=== PATIENT | female | born 1950 | race Two or more races ===

== ENCOUNTER 2016-10-31 04:18 | Emergency (ER) | payer MEDICARE, BC ==
[~2016-10-31] VITALS: Ht 152.4 cm; Wt 86.6 kg
[2016-10-31 04:25] VITALS: BP 158/87
== END 2016-10-31 06:40 | disposition home or self-care (01) ==
LOC: ER 04:21
DX: S90.122A Contusion of left lesser toe(s) without damage to nail, initial encounter (principal); W22.8XXA Striking against or struck by other objects, initial encounter; Y93.89 Activity, other specified; Y92.89 Other specified places as the place of occurrence of the external cause; Y99.9 Unspecified external cause status
CPT/HCPCS: 73620; 99284; A4606; Z7610

== ENCOUNTER 2016-11-09 06:45 | Inpatient (IN) | payer MEDICARE, BC ==
[~2016-11-09] VITALS: Ht 134.6 cm; Wt 91.6 kg
[2016-11-09] VITALS: BP 151/75
--- NOTE | 2016-11-09 06:50 | NUR ---
AGUSTIN FROM HOME DT EPIGASTRIC PAIN, 8/10, NON RADIATING X 2 DAYS. PATIENT REPORTED NAUSEA AND VOMITTIING X 3 DAYS. SKIN IS WARM TO TOUCH AND NON DIAPHORETIC. PT IS AFEBRILE. VSS
[2016-11-09] MEDS ORDERED: ONDANSETRON HCL/PF 4 MG/2 ML VIAL ONE (06:59)
[2016-11-09] MEDS ORDERED: ONDANSETRON HCL/PF 4 MG/2 ML VIAL IVP ONE (07:00)
[2016-11-09] MEDS ORDERED: IV NS 0.9% 1,000 ML BAG IV ONE (07:00)
--- NOTE | 2016-11-09 07:00 | NUR ---
IV ACCESSED TO [facility] 20. BLOOD SAMPLE SENT TO LAB
--- NOTE | 2016-11-09 07:07 | NUR ---
REPORT GIVEN TO AGUILAR RAYGOZA FOR JOSE GUADALUPE
--- NOTE | 2016-11-09 07:23 | NUR ---
PT TO CT.
[2016-11-09 07:39] LABS: BASOPHILS # (AUTO) 0.1 /CMM (0.0-0.2); BASOPHILS % (AUTO) 0.8 % (0.0-2.0); EOSINOPHILS # (AUTO) 0.2 /CMM (0.0-0.7); EOSINOPHILS % (AUTO) 2.3 % (0.0-6.0); HEMATOCRIT 29 % (33-45); HEMOGLOBIN 9.3 g/dL (11.5-14.8); LYMPHOCYTES # (AUTO) 2.2 /CMM (0.8-4.8); LYMPHOCYTES % (AUTO) 31.7 % (20.0-44.0); MEAN CORPUSCULAR HEMOGLOBIN 29 PG (26.0-33.0); MEAN CORPUSCULAR HGB CONC 32 g/dl (31.0-36.0); MEAN CORPUSCULAR VOLUME 90 fL (82-100); MONOCYTES # (AUTO) 0.4 /CMM (0.1-1.30); MONOCYTES % (AUTO) 5.4 % (2.0-12.0); NEUTROPHILS # (AUTO) 4.1 /CMM (1.8-8.9); NEUTROPHILS % (AUTO) 59.8 % (43.0-81.0); PLATELET COUNT (AUTO) 205 /CMM (150-450); RDW COEFFICIENT OF VARIATION 18.6 (11.5-15.0); RED BLOOD CELL COUNT(AUTO) 3.23 MIL/uL (4.0-5.2); WHITE BLOOD COUNT (AUTO) 6.8 K/uL (4.3-11.0)
--- NOTE | 2016-11-09 07:40 | NUR ---
PATIENT RETURNED FROM CT IN STABLE CONDITION.
[2016-11-09 07:57] LABS: INR 1.04 (0.87-1.13); PROTHROMBIN TIME 11.2 SECS (9.5-12.7)
[2016-11-09 07:59] LABS: CALCIUM, SERUM 8.8 mg/dL (8.5-10.1); CARBON DIOXIDE 27 mmol/L (21-32); CHLORIDE 107 mmol/L (98-107); CREATININE 1.4 mg/dL (0.6-1.3); GLUCOSE 172 mg/dL (74-106); POTASSIUM 4.1 mmol/L (3.5-5.1); SODIUM SERUM 144 mmol/L (136-145); UREA NITROGEN, BLOOD 35 mg/dL (7-18)
[2016-11-09 08:05] LABS: ALANINE AMINOTRANSFERASE 30 U/L (12-78); ALBUMIN 3.3 g/dL (3.4-5.0); ALKALINE PHOSPHATASE 45 U/L (46-116); ASPARTATE AMINOTRANSFERASE 35 U/L (15-37); BILIRUBIN,DIRECT 0.1 mg/dL (0.0-0.2); BILIRUBIN,TOTAL 0.3 mg/dL (0.2-1.0); TOTAL PROTEIN, SERUM 7.7 g/dL (6.4-8.2); TROPONIN I < 0.017 ng/mL (0.00-0.056)
[2016-11-09 08:06] LABS: PARTIAL THROMBOPLASTIN TIME < 20 SEC (23-34)
[2016-11-09] MEDS ORDERED: IV NS 0.9% 100 ML IV ONE (09:00)
[2016-11-09] MEDS ORDERED: IV NS 0.9% 1,000 ML IV ONE (09:00)
[2016-11-09] MEDS ORDERED: PIPERACILLIN /TAZOBACTAM 3.375 G in IV D5W 50 ML IV ONE (09:00)
[2016-11-09] MEDS ORDERED: IV NS 0.9% 500 ML IV ONE (09:00)
[2016-11-09] MEDS ORDERED: OMEG500C PO (09:01)
[2016-11-09] MEDS ORDERED: ASPI81TA2 PO (09:01)
[2016-11-09] MEDS ORDERED: CLON0.5T4 PO (09:01)
[2016-11-09] MEDS ORDERED: FERR-58 PO (09:01)
[2016-11-09] MEDS ORDERED: DIVA500T7 PO (09:01)
[2016-11-09] MEDS ORDERED: AMLO10TA2 PO (09:01)
[2016-11-09] MEDS ORDERED: METO50TA3 PO (09:01)
[2016-11-09] MEDS ORDERED: IBUP-1482 PO (09:01)
[2016-11-09] MEDS ORDERED: FENO145T PO (09:01)
[2016-11-09] MEDS ORDERED: METF850T2 PO (09:01)
[2016-11-09] MEDS ORDERED: DOCU-170 PO (09:01)
[2016-11-09] MEDS ORDERED: ASCO-340 PO (09:01)
[2016-11-09] MEDS ORDERED: INSU3INS6 SQ (09:01)
[2016-11-09] MEDS ORDERED: FURO40TA5 PO (09:01)
[2016-11-09] MEDS ORDERED: INSU100I4 SQ (09:01)
[2016-11-09] MEDS ORDERED: BENZ1TAB7 PO (09:01)
[2016-11-09] MEDS ORDERED: OLAN5TAB3 PO (09:01)
[2016-11-09] MEDS ORDERED: OMEP20CA10 PO (09:01)
[2016-11-09] MEDS ORDERED: ACET-868 PO (09:01)
[2016-11-09] MEDS ORDERED: ATOR40TA PO (09:01)
--- NOTE | 2016-11-09 10:27 | NUR ---
REPORT GIVEN TO RNSUHA FOR ADMISSION
[2016-11-09 11:03] LABS: APPEARANCE,URINE Clear (CLEAR); BILIRUBIN,URINE Negative (NEGATIVE); BLOOD, URINE Negative Ery/uL (NEGATIVE); COLOR,URINE Yellow (YELLOW); KETONES,URINE Negative (NEGATIVE); LEUKOCYTE ESTERASE ,URINE Negative (NEGATIVE); NITRITE, URINE Negative (NEGATIVE); PROTEIN,URINE 100 mg/dl (NEGATIVE); UGLUCOSE Negative (NEGATIVE); UROBILINOGEN,URINE 0.2 EU/dL (0.2)
--- NOTE | 2016-11-09 11:10 | NUR ---
PATIENT TRANSFERRED TO [facility] FOR ADMISSION VIA ACLS PROTOCOL. RN, SUHA TO PROVIDE JOSE GUADALUPE .
[2016-11-09 11:15] VITALS: BP 154/74
[2016-11-09 11:29] LABS: BACTERIA,URINE Rare /HPF (None Seen); RBC,URINE NONE SEEN /HPF (0-2); SQUAMOUS EPITHELIAL CELL,UR Few /HPF (None Seen); WBC,URINE NONE SEEN /HPF (0-3)
[2016-11-09] MEDS ORDERED: DEXTROSE 50%-WATER 50 ML DISP.SYRIN IV PRN (17:00)
[2016-11-09] MEDS ORDERED: IBUPROFEN 800 MG TABLET PO PRN (17:00)
[2016-11-09] MEDS: DOCUSATE SODIUM 100 MG CAPSULE PO SCH (17:12)
[2016-11-09] MEDS: clonazePAM 0.5 MG TABLET PO SCH (17:12)
[2016-11-09] MEDS: FERROUS SULFATE (325 MG) 325 MG/TAB TABLET PO SCH (17:12)
[2016-11-09] MEDS: MORPHINE SULFATE INJ 2 MG/ML DISP.SYRIN IV PRN (17:13)
[2016-11-09] MEDS ORDERED: IBUPROFEN 400 MG TABLET PO PRN (17:30)
[2016-11-09] MEDS: BLOOD SUGAR DIAGNOSTIC 1 EACH STRIP VI SCH ×2 (17:39→21:31)
[2016-11-09] MEDS: INSULIN REGULAR, HUMAN 100 UNIT/ML 3 ML VIAL SQ PRN (17:51)
[2016-11-09 20:16] VITALS: BP 144/76
--- NOTE | 2016-11-09 20:18 | NUR ---
CORRESPONDENCE COORDINATOR INITIAL NOTES PT IS IN BED SLEEPING, EASILY AROUSED. NO SIGNS OF SOB OR DISTRESS. ON RA BREATHING EVENLY AND UNLABORED. TELE MONITOR SHOWING ST-112. STOOL SAMPLE PENDING COLLECTION. BED IS IN LOW AND LOCKED POSITION, CALL LIGHT WITHIN REACH. WILL CONTINUE TO MONITOR PT.
[2016-11-09] MEDS: *INSULIN REGULAR(HUMULIN R)HUM 100 UNIT/ML VIAL SQ PRN (21:35)
[2016-11-09] MEDS: ATORVASTATIN 40 MG TABLET PO SCH (21:36)
[2016-11-09] MEDS: DIVALPROEX SODIUM 500 MG TABLET.DR PO SCH (21:36)
[2016-11-09] MEDS: BENZTROPINE MESYLATE (1 MG) 1 MG TABLET PO SCH (21:36)
[2016-11-09] MEDS: OLANZAPINE 5 MG TABLET PO SCH (21:36)
[2016-11-10 00:15] VITALS: BP 157/77
[2016-11-10] MEDS ORDERED: METRONIDAZOLE 500 MG TABLET ONE ×2 (00:25→05:13)
[2016-11-10] MEDS: METRONIDAZOLE 500 MG TABLET PO SCH ×5 (00:29→23:08)
[2016-11-10 04:36] VITALS: BP 151/75
[2016-11-10] MEDS: BLOOD SUGAR DIAGNOSTIC 1 EACH STRIP VI SCH ×4 (05:29→21:01)
--- NOTE | 2016-11-10 06:50 | NUR ---
MS RN INITIAL NOTES PT IS IN BED SLEEPING, EASILY AROUSED. NO SIGNS OF SOB OR DISTRESS. IV ACCESS IS INTACT AND PATENT. ALL NEEDS WERE ANTICIPATED AND MET. PENDING STOOL SAMPLE COLLECTION. WILL ENDORSE TO DAY SHIFT
--- NOTE | 2016-11-10 07:10 | NUR ---
MS RN notes Received patient in bed, A/O x3. On room air, tolerating well. No SOB. Appears comfortable in bed, no c/o pain at this time. Bed lowest position. Call light within reach. Will cont to monitor.
[2016-11-10 07:13] VITALS: BP 144/77
[2016-11-10 08:00] VITALS: BP 144/77
[2016-11-10] MEDS: ASPIRIN 81 MG TAB.CHEW PO SCH (08:54)
[2016-11-10] MEDS: DOCUSATE SODIUM 100 MG CAPSULE PO SCH ×2 (08:54→17:17)
[2016-11-10] MEDS: DIVALPROEX SODIUM 500 MG TABLET.DR PO SCH ×2 (08:54→21:03)
[2016-11-10] MEDS: FENOFIBRATE NANOCRYS (145 MG) 145 MG TABLET PO SCH (08:54)
[2016-11-10] MEDS: BENZTROPINE MESYLATE (1 MG) 1 MG TABLET PO SCH ×2 (08:54→21:03)
[2016-11-10] MEDS: FERROUS SULFATE (325 MG) 325 MG/TAB TABLET PO SCH ×3 (08:54→17:17)
[2016-11-10] MEDS: clonazePAM 0.5 MG TABLET PO SCH ×3 (08:55→17:17)
[2016-11-10] MEDS: ASCORBIC ACID 500 MG TABLET PO SCH ×2 (08:55→17:17)
[2016-11-10] MEDS: FUROSEMIDE 40 MG TABLET PO SCH (08:55)
[2016-11-10] MEDS: AMLODIPINE BESYLATE 10 MG TABLET PO SCH (08:59)
[2016-11-10] MEDS: METOPROLOL TARTRATE 50 MG TABLET PO SCH (09:03)
[2016-11-10] MEDS: HEPARIN SODIUM, PORCINE 5000 UNITS/1 ML VIAL SQ SCH ×2 (09:08→21:02)
[2016-11-10] MEDS: *INSULIN REGULAR(HUMULIN R)HUM 100 UNIT/ML VIAL SQ PRN ×2 (12:01→21:12)
[2016-11-10] MEDS ORDERED: METR500T PO (12:55)
[2016-11-10] MEDS ORDERED: ALBUTEROL FS 2.5 MG/0.5 ML VIAL.NEB NEB PRN (14:00)
[2016-11-10] MEDS ORDERED: IPRATROPIUM NEB FS 0.5 MG/2.5 ML AMPUL.NEB NEB PRN (14:00)
--- NOTE | 2016-11-10 14:00 | NUR ---
Patient in bed, seen by PT today participated well. Per PT patient walk with assist 20 feet. Patient appears weak after PT, On Oxygen at 2LPM via NC, sating 94%. Patient is seen by DOUGH CATCHER-Walter today, ordered Xray chest, echo and BNP noted and acknowledged.
[2016-11-10 14:52] LABS: BASOPHILS # (AUTO) 0.1 /CMM (0.0-0.2); BASOPHILS % (AUTO) 0.8 % (0.0-2.0); EOSINOPHILS # (AUTO) 0.1 /CMM (0.0-0.7); EOSINOPHILS % (AUTO) 2.1 % (0.0-6.0); HEMATOCRIT 28 % (33-45); HEMOGLOBIN 9.1 g/dL (11.5-14.8); LYMPHOCYTES # (AUTO) 1.9 /CMM (0.8-4.8); LYMPHOCYTES % (AUTO) 26.9 % (20.0-44.0); MEAN CORPUSCULAR HEMOGLOBIN 29 PG (26.0-33.0); MEAN CORPUSCULAR HGB CONC 32 g/dl (31.0-36.0); MEAN CORPUSCULAR VOLUME 90 fL (82-100); MONOCYTES # (AUTO) 0.3 /CMM (0.1-1.30); MONOCYTES % (AUTO) 4.4 % (2.0-12.0); NEUTROPHILS # (AUTO) 4.7 /CMM (1.8-8.9); NEUTROPHILS % (AUTO) 65.8 % (43.0-81.0); PLATELET COUNT (AUTO) 241 /CMM (150-450); RDW COEFFICIENT OF VARIATION 18.2 (11.5-15.0); RED BLOOD CELL COUNT(AUTO) 3.14 MIL/uL (4.0-5.2); WHITE BLOOD COUNT (AUTO) 7.1 K/uL (4.3-11.0)
[2016-11-10 15:10] LABS: CALCIUM, SERUM 8.7 mg/dL (8.5-10.1); CREATININE 1.4 mg/dL (0.6-1.3); POTASSIUM 4.1 mmol/L (3.5-5.1)
[2016-11-10 16:00] VITALS: BP 137/83
[2016-11-10] MEDS: INSULIN REGULAR, HUMAN 100 UNIT/ML 3 ML VIAL SQ PRN (17:42)
--- NOTE | 2016-11-10 18:29 | NUR ---
MS RN Closing notes Patient in bed, A/O x3. No s/s of hypo/hyperglycemia. On oxygen at 2LPM via NC, no SOB. ON clear liquid diet, tolerated well. No c/o nausea, no episode of vomiting. On antibiotic with no adverse side effect, afebrile. No c/o pain or any discomfort. Call light within reach. For stool cdiff, will endorse to feather washer RN for continuity of care.
--- NOTE | 2016-11-10 19:45 | NUR ---
MS RN INITIAL NOTES PT IS IN WATCHING TV, ALERT AND VERBA. NO SIGNS OF SOB OR DISTRESS. ON RA BREATHING EVENLY AND UNLABORED. STOOL SAMPLE PENDING COLLECTION. BED IS IN LOW AND LOCKED POSITION, CALL LIGHT WITHIN REACH. WILL CONTINUE TO MONITOR PT.
[2016-11-10 20:00] VITALS: BP 155/77
--- NOTE | 2016-11-10 20:20 | NUR ---
TEMP IS 100.1- COOLING MEASURES WERE INITIATED. WILL CONTINUE TO MONITOR PT
[2016-11-10] MEDS: OLANZAPINE 5 MG TABLET PO SCH (21:01)
[2016-11-10] MEDS: ATORVASTATIN 40 MG TABLET PO SCH (21:03)
--- NOTE | 2016-11-10 23:11 | NUR ---
TEMP IS NOW 98.8- WILL CONTINUE TO MONITOR
[2016-11-11] MEDS: METRONIDAZOLE 500 MG TABLET PO SCH ×3 (05:41→17:17)
--- NOTE | 2016-11-11 05:42 | NUR ---
PT REFUSED FLAGYL, COMPLAINTS OF MAKING HER LEGS FEEL MORE RESTLESS
[2016-11-11] MEDS: BLOOD SUGAR DIAGNOSTIC 1 EACH STRIP VI SCH ×4 (06:00→21:44)
--- NOTE | 2016-11-11 06:23 | NUR ---
MS RN CLOSING NOTES PT IS IN BED SLEEPING, EASILY AROUSED. NO SIGNS OF SOB OR DISTRESS. NO SIGNS OF FEVER, TEMP WAS MONITORED THROUGHOUT THE NIGHT. IV ACCESS IS INTACT AND PATENT. ALL NEEDS WERE ANTICIPATED AND MET. PENDING STOOL SAMPLE COLLECTION. WILL ENDORSE TO DAY SHIFT
[2016-11-11 07:34] LABS: BASOPHILS % (AUTO) 0.6 % (0.0-2.0); EOSINOPHILS # (AUTO) 0.1 /CMM (0.0-0.7); EOSINOPHILS % (AUTO) 1.9 % (0.0-6.0); HEMATOCRIT 25 % (33-45); HEMOGLOBIN 8.2 g/dL (11.5-14.8); LYMPHOCYTES % (AUTO) 34.1 % (20.0-44.0); MEAN CORPUSCULAR HEMOGLOBIN 30 PG (26.0-33.0); MEAN CORPUSCULAR HGB CONC 33 g/dl (31.0-36.0); MEAN CORPUSCULAR VOLUME 89 fL (82-100); MONOCYTES # (AUTO) 0.3 /CMM (0.1-1.30); MONOCYTES % (AUTO) 4.5 % (2.0-12.0); NEUTROPHILS # (AUTO) 3.5 /CMM (1.8-8.9); NEUTROPHILS % (AUTO) 58.9 % (43.0-81.0); PLATELET COUNT (AUTO) 179 /CMM (150-450); RDW COEFFICIENT OF VARIATION 17.5 (11.5-15.0); RED BLOOD CELL COUNT(AUTO) 2.76 MIL/uL (4.0-5.2)
[2016-11-11 07:51] LABS: CALCIUM, SERUM 8.7 mg/dL (8.5-10.1); CREATININE 1.3 mg/dL (0.6-1.3); MAGNESIUM 1.5 mg/dL (1.8-2.4); POTASSIUM 3.7 mmol/L (3.5-5.1)
[2016-11-11 08:00] VITALS: BP 138/69
--- NOTE | 2016-11-11 08:00 | NUR ---
AM RN NOTES RECEIVED PT IN STABLE CONDITION, NO SOB OR DISTRESS NOTED PT ASSISTED TO BEDSIDE CHAIR, CONSUMING HER BREAKFAST, WILL MONITOR.
[2016-11-11] MEDS: DIVALPROEX SODIUM 500 MG TABLET.DR PO SCH ×2 (08:18→21:45)
[2016-11-11] MEDS: AMLODIPINE BESYLATE 10 MG TABLET PO SCH (08:19)
[2016-11-11] MEDS: DOCUSATE SODIUM 100 MG CAPSULE PO SCH ×2 (08:19→16:19)
[2016-11-11] MEDS: clonazePAM 0.5 MG TABLET PO SCH ×3 (08:19→16:19)
[2016-11-11] MEDS: FERROUS SULFATE (325 MG) 325 MG/TAB TABLET PO SCH ×3 (08:19→16:20)
[2016-11-11] MEDS: FUROSEMIDE 40 MG TABLET PO SCH (08:19)
[2016-11-11] MEDS: FENOFIBRATE NANOCRYS (145 MG) 145 MG TABLET PO SCH (08:19)
[2016-11-11] MEDS: METOPROLOL TARTRATE 50 MG TABLET PO SCH (08:19)
[2016-11-11] MEDS: ASPIRIN 81 MG TAB.CHEW PO SCH (08:20)
[2016-11-11] MEDS: ASCORBIC ACID 500 MG TABLET PO SCH ×2 (08:20→16:19)
[2016-11-11] MEDS: BENZTROPINE MESYLATE (1 MG) 1 MG TABLET PO SCH ×2 (08:25→21:45)
[2016-11-11] MEDS: HEPARIN SODIUM, PORCINE 5000 UNITS/1 ML VIAL SQ SCH ×2 (09:00→21:46)
--- NOTE | 2016-11-11 10:00 | NUR ---
GLUCOPHAGE ON HOLD DUE TO ELEVATED BUN CREA.
[2016-11-11] MEDS: Magnesium 1GM/D5W 100ML PREMIX 100 ML IV SCH ×2 (11:36→12:39)
[2016-11-11] MEDS: INSULIN REGULAR, HUMAN 100 UNIT/ML 3 ML VIAL SQ PRN (11:55)
[2016-11-11 15:59] VITALS: BP 126/60
[2016-11-11] MEDS: METFORMIN 850 MG TABLET PO SCH (16:21)
--- NOTE | 2016-11-11 18:07 | NUR ---
NOT ABLE TO COLLECT STOOL AT THIS TIME, PT HAD BM X1 BUT USED RESTROOM, PROVIDED WITH BEDSIDE COMMODE AND EDUCATED.
--- NOTE | 2016-11-11 18:21 | NUR ---
PT IN STABLE CONDITION NO PAIN OR DISCOMFORT NOTED, WILL ENDORSE TO NEXT SHIFT FOR JOSE GUADALUPE.
--- NOTE | 2016-11-11 19:40 | NUR ---
MS RN NOTE: PATIENT RESTING IN BED, NO ACUTE DISTRESS NOTED. BREATHING EVEN AND UNLABORED, NO SOB NOTED. IV TO RFA IN PLACE. BED LOCKED AND IN LOWEST POSITION, CALL LIGHT IN REACH. WILL CONTINUE TO MONITOR.
[2016-11-11 20:00] VITALS: BP 153/70
[2016-11-11] MEDS: ATORVASTATIN 40 MG TABLET PO SCH (21:45)
--- NOTE | 2016-11-11 21:45 | NUR ---
MS RN NOTE: PATIENT BLOOD SUGAR LEVEL 113 MG/DL, NO INSULIN NEEDED PER SLIDING SCALE. NO S/S OF HYPER/HYPOGLYCEMIA NOTED. WILL CONTINUE TO MONITOR.
[2016-11-11] MEDS: OLANZAPINE 5 MG TABLET PO SCH (21:47)
[2016-11-12] MEDS: METRONIDAZOLE 500 MG TABLET PO SCH ×5 (00:39→23:42)
--- NOTE | 2016-11-12 06:30 | NUR ---
MS RN NOTE: PATIENT RESTING IN BED, NO ACUTE DISTRESS NOTED. BREATHING EVEN AND UNLABORED, NO SOB NOTED. IV TO RFA IN PLACE. PATIENT BLOOD SUGAR LEVEL 138 MG/DL, PATIENT TO RECEIVE 2 UNITS OF INSULIN PER SLIDING SCALE. NO S/S OF HYPER/HYPOGLYCEMIA NOTED. BED LOCKED AND IN LOWEST POSITION, CALL LIGHT IN REACH. WILL ENDORSE TO DAY NURSE TO CONTINUE WITH PLAN OF CARE.
[2016-11-12] MEDS: BLOOD SUGAR DIAGNOSTIC 1 EACH STRIP VI SCH ×4 (06:35→21:14)
[2016-11-12] MEDS: INSULIN REGULAR, HUMAN 100 UNIT/ML 3 ML VIAL SQ PRN ×2 (07:14→17:03)
[2016-11-12 08:00] VITALS: BP 141/73
--- NOTE | 2016-11-12 08:00 | NUR ---
MS RN NOTES PATIENT SLEEPING IN BED. NO S/S OF PAIN, NO ACUTE DISTRESS, NO SOB NOTED. RESP EVEN & NONLABORED. PERIPHERAL IV ACCESS TO RFA, INTACT PATENT. BED IN LOW LOCKED POSITION. CALL LIGHT WITHIN REACH. MONITORING CLOSELY.
[2016-11-12] MEDS: clonazePAM 0.5 MG TABLET PO SCH ×3 (08:52→16:52)
[2016-11-12] MEDS: FERROUS SULFATE (325 MG) 325 MG/TAB TABLET PO SCH ×3 (08:52→16:52)
[2016-11-12] MEDS: DOCUSATE SODIUM 100 MG CAPSULE PO SCH ×2 (08:52→16:52)
[2016-11-12] MEDS: BENZTROPINE MESYLATE (1 MG) 1 MG TABLET PO SCH ×2 (08:52→21:17)
[2016-11-12] MEDS: ASCORBIC ACID 500 MG TABLET PO SCH ×2 (08:52→16:53)
[2016-11-12] MEDS: ASPIRIN 81 MG TAB.CHEW PO SCH (08:52)
[2016-11-12] MEDS: FENOFIBRATE NANOCRYS (145 MG) 145 MG TABLET PO SCH (08:53)
[2016-11-12] MEDS: DIVALPROEX SODIUM 500 MG TABLET.DR PO SCH ×2 (08:53→21:17)
[2016-11-12] MEDS: METFORMIN 850 MG TABLET PO SCH ×2 (08:53→16:52)
[2016-11-12] MEDS: AMLODIPINE BESYLATE 10 MG TABLET PO SCH (08:53)
[2016-11-12] MEDS: FUROSEMIDE 40 MG TABLET PO SCH (08:53)
[2016-11-12] MEDS: HEPARIN SODIUM, PORCINE 5000 UNITS/1 ML VIAL SQ SCH ×2 (08:55→21:38)
[2016-11-12] MEDS: METOPROLOL TARTRATE 50 MG TABLET PO SCH (09:58)
--- NOTE | 2016-11-12 12:00 | NUR ---
MS RN NOTES PATIENT SLEEPING IN BED INTERMITTENTLY. NO C/O PAIN, NO DISCOMFORT NOTED. AM MEDS ADMINISTERED & TOLERATED WELL. NO JOSE GUADALUPE NOTED. CALL LIGHT WITHIN REACH, CONTINUING TO MONITOR.
[2016-11-12] MEDS: Magnesium 1GM/D5W 100ML PREMIX 100 ML IV SCH ×2 (12:11→14:10)
[2016-11-12 14:29] LABS: BASOPHILS % (AUTO) 0.5 % (0.0-2.0); EOSINOPHILS # (AUTO) 0.2 /CMM (0.0-0.7); EOSINOPHILS % (AUTO) 3.3 % (0.0-6.0); HEMATOCRIT 26 % (33-45); HEMOGLOBIN 8.3 g/dL (11.5-14.8); LYMPHOCYTES % (AUTO) 40.2 % (20.0-44.0); MEAN CORPUSCULAR HEMOGLOBIN 29 PG (26.0-33.0); MEAN CORPUSCULAR HGB CONC 32 g/dl (31.0-36.0); MEAN CORPUSCULAR VOLUME 90 fL (82-100); MONOCYTES # (AUTO) 0.3 /CMM (0.1-1.30); MONOCYTES % (AUTO) 5.4 % (2.0-12.0); NEUTROPHILS # (AUTO) 2.6 /CMM (1.8-8.9); NEUTROPHILS % (AUTO) 50.6 % (43.0-81.0); PLATELET COUNT (AUTO) 214 /CMM (150-450); RDW COEFFICIENT OF VARIATION 17.4 (11.5-15.0); RED BLOOD CELL COUNT(AUTO) 2.88 MIL/uL (4.0-5.2); WHITE BLOOD COUNT (AUTO) 5.1 K/uL (4.3-11.0)
[2016-11-12 14:43] LABS: CALCIUM, SERUM 8.8 mg/dL (8.5-10.1); CREATININE 1.6 mg/dL (0.6-1.3); POTASSIUM 3.7 mmol/L (3.5-5.1)
[2016-11-12 16:00] VITALS: BP 126/69
--- NOTE | 2016-11-12 19:30 | NUR ---
RN NOTES RECEIVED PATIENT IN BED AWAKE, AO X 3, ABLE TO MAKE NEEDS KNOWN. NO ACUTE DISTRESS NOTED. DENIES ANY PAIN AT THIS TIME. IV SITE PATENT, INTACT; FLUSHED. SAFETY REMINDERS GIVEN. ON LOW BED WITH BILATERAL UPPER SIDE RAILS UP. CALL LIGHT WITHIN EASY REACH. WILL CONTINUE TO MONITOR.
[2016-11-12 20:00] VITALS: BP 130/65
[2016-11-12] MEDS: OLANZAPINE 5 MG TABLET PO SCH (21:17)
[2016-11-12] MEDS: ATORVASTATIN 40 MG TABLET PO SCH (21:17)
[2016-11-12] MEDS: *INSULIN REGULAR(HUMULIN R)HUM 100 UNIT/ML VIAL SQ PRN (21:40)
[2016-11-13] MEDS: METRONIDAZOLE 500 MG TABLET PO SCH ×4 (05:54→23:30)
--- NOTE | 2016-11-13 06:27 | NUR ---
RN NOTES PATIENT ASLEEP, EASILY AROUSABLE. RESPIRATIONS EVEN. NO SIGNS OF PAIN NOTED. NO SYMPTOMS OF HYPER/HYPOGLYCEMIA. DUE MEDS GIVEN WITH NO ASE NOTE. NEEDS ATTENDED. SAFETY PRECAUTIONS AND COMFORT MEASURES IN PLACE. WILL GIVE REPORT DAY SHIFT FOR CONTINUITY OF CARE.
[2016-11-13 06:41] LABS: BASOPHILS % (AUTO) 0.8 % (0.0-2.0); EOSINOPHILS # (AUTO) 0.2 /CMM (0.0-0.7); EOSINOPHILS % (AUTO) 3.3 % (0.0-6.0); HEMATOCRIT 25 % (33-45); HEMOGLOBIN 8.3 g/dL (11.5-14.8); LYMPHOCYTES % (AUTO) 39.9 % (20.0-44.0); MEAN CORPUSCULAR HEMOGLOBIN 30 PG (26.0-33.0); MEAN CORPUSCULAR HGB CONC 33 g/dl (31.0-36.0); MEAN CORPUSCULAR VOLUME 90 fL (82-100); MONOCYTES # (AUTO) 0.3 /CMM (0.1-1.30); MONOCYTES % (AUTO) 6.3 % (2.0-12.0); NEUTROPHILS # (AUTO) 2.5 /CMM (1.8-8.9); NEUTROPHILS % (AUTO) 49.7 % (43.0-81.0); PLATELET COUNT (AUTO) 201 /CMM (150-450); RDW COEFFICIENT OF VARIATION 17.8 (11.5-15.0); WHITE BLOOD COUNT (AUTO) 5.1 K/uL (4.3-11.0)
[2016-11-13] MEDS: BLOOD SUGAR DIAGNOSTIC 1 EACH STRIP VI SCH ×4 (06:44→21:13)
[2016-11-13] MEDS: *INSULIN REGULAR(HUMULIN R)HUM 100 UNIT/ML VIAL SQ PRN ×2 (06:44→21:21)
[2016-11-13 06:59] LABS: CALCIUM, SERUM 8.8 mg/dL (8.5-10.1); CREATININE 1.5 mg/dL (0.6-1.3); MAGNESIUM 1.8 mg/dL (1.8-2.4); PHOSPHORUS 4.7 mg/dL (2.5-4.9); POTASSIUM 3.6 mmol/L (3.5-5.1)
--- NOTE | 2016-11-13 07:05 | NUR ---
RN MS NOTES PATIENT ALERT AND ORIENTED, VERBALLY RESPONSIVE, DENIES PAIN OR DISCOMFORT AT THIS TIME, BREATHING EVEN AND UNLABORED, NO SOB NOTED, PIV ON RFA PATENT AND FLUSHES WELL, NEEDS ATTENDED AND MET, SAFETY MEASURES IN PLACED, CALL LIGHT WITHIN REACH, WILL CONTINUE TO MONITOR.
[2016-11-13 08:00] VITALS: BP 141/66
[2016-11-13] MEDS: ASPIRIN 81 MG TAB.CHEW PO SCH (08:21)
[2016-11-13] MEDS: AMLODIPINE BESYLATE 10 MG TABLET PO SCH (08:21)
[2016-11-13] MEDS: METOPROLOL TARTRATE 50 MG TABLET PO SCH (08:21)
[2016-11-13] MEDS: FENOFIBRATE NANOCRYS (145 MG) 145 MG TABLET PO SCH (08:21)
[2016-11-13] MEDS: BENZTROPINE MESYLATE (1 MG) 1 MG TABLET PO SCH ×2 (08:21→21:11)
[2016-11-13] MEDS: DIVALPROEX SODIUM 500 MG TABLET.DR PO SCH ×2 (08:21→21:11)
[2016-11-13] MEDS: DOCUSATE SODIUM 100 MG CAPSULE PO SCH ×2 (08:21→17:29)
[2016-11-13] MEDS: FERROUS SULFATE (325 MG) 325 MG/TAB TABLET PO SCH ×3 (08:21→17:29)
[2016-11-13] MEDS: clonazePAM 0.5 MG TABLET PO SCH ×3 (08:22→17:29)
[2016-11-13] MEDS: METFORMIN 850 MG TABLET PO SCH ×2 (08:22→17:29)
[2016-11-13] MEDS: FUROSEMIDE 40 MG TABLET PO SCH (08:22)
[2016-11-13] MEDS: ASCORBIC ACID 500 MG TABLET PO SCH ×2 (08:22→17:29)
[2016-11-13] MEDS: HEPARIN SODIUM, PORCINE 5000 UNITS/1 ML VIAL SQ SCH ×2 (08:34→21:12)
[2016-11-13 16:00] VITALS: BP 135/66
[2016-11-13] MEDS: INSULIN REGULAR, HUMAN 100 UNIT/ML 3 ML VIAL SQ PRN (17:28)
[2016-11-13] MEDS: MORPHINE SULFATE INJ 2 MG/ML DISP.SYRIN IV PRN (17:29)
--- NOTE | 2016-11-13 18:23 | NUR ---
RN MS NOTES PATIENT RESTING IN BED, NO ACUTE DISTRESS NOTED. BREATHING EVEN AND UNLABORED, NO SOB NOTED. IV TO RFA IN PLACE. NO S/S OF HYPER/HYPOGLYCEMIA NOTED. PATIENT AMBULATES STEADY, NEEDS ATTENDED AND MET, COMPLAINED OF KNEE PAIN, MORPHINE GIVEN AND EFFECTIVE, BED LOCKED AND IN LOWEST POSITION, CALL LIGHT IN REACH. WILL ENDORSE TO NIGHT NURSE TO CONTINUE WITH PLAN OF CARE
[2016-11-13 20:00] VITALS: BP 136/67
--- NOTE | 2016-11-13 20:00 | NUR ---
RN NOTES RECEIVED PT AWAKE ON BED, A/OX3, FRENCH SPEAKING BUT CAN SPEAK NIUEAN, AMBULATE WITH ASSIST, DENIES PAIN, NO SOB, CALL LIGHT WITHIN REACH, SIDERAILS UPX2 CONTINUE TO MONITOR
[2016-11-13] MEDS: ATORVASTATIN 40 MG TABLET PO SCH (21:11)
[2016-11-13] MEDS: OLANZAPINE 5 MG TABLET PO SCH (21:12)
[2016-11-14] MEDS: METRONIDAZOLE 500 MG TABLET PO SCH ×3 (05:47→17:17)
--- NOTE | 2016-11-14 06:58 | NUR ---
RN NOTES AWAKE, DENIES PAIN, NO SOB, MORNING CARE RENDERED, CALL LIGHT WITHIN REACH, SIDERAILS UPX3, PT. NEEDS ATTENDED
--- NOTE | 2016-11-14 07:18 | NUR ---
RN MS OPENING NOTES PATIENT RECEIVED SITTING ON CHAIR BY BEDSIDE. ALERT AND ORIENTED X 3, SAME VERBALLY RESPONSIVE, DENIES PAIN OR DISCOMFORT AT THIS TIME. ON ROOM AIR, BREATHING EVEN AND UNLABORED, NO SOB NOTED. IV ACCESS ON RFA G#22 INTACT AND PATENT. SAFETY MEASURES IN PLACED, CALL LIGHT WITHIN REACH. WILL CONTINUE TO MONITOR PT ACCORDINGLY.
[2016-11-14] MEDS: BLOOD SUGAR DIAGNOSTIC 1 EACH STRIP VI SCH ×3 (07:32→17:17)
[2016-11-14 08:00] VITALS: BP 137/66
[2016-11-14] MEDS: clonazePAM 0.5 MG TABLET PO SCH ×3 (08:25→16:18)
[2016-11-14] MEDS: AMLODIPINE BESYLATE 10 MG TABLET PO SCH (08:25)
[2016-11-14] MEDS: DIVALPROEX SODIUM 500 MG TABLET.DR PO SCH (08:25)
[2016-11-14] MEDS: FERROUS SULFATE (325 MG) 325 MG/TAB TABLET PO SCH ×3 (08:26→16:18)
[2016-11-14] MEDS: METOPROLOL TARTRATE 50 MG TABLET PO SCH (08:26)
[2016-11-14] MEDS: ASPIRIN 81 MG TAB.CHEW PO SCH (08:26)
[2016-11-14] MEDS: DOCUSATE SODIUM 100 MG CAPSULE PO SCH ×2 (08:26→16:18)
[2016-11-14] MEDS: FENOFIBRATE NANOCRYS (145 MG) 145 MG TABLET PO SCH (08:26)
[2016-11-14] MEDS: FUROSEMIDE 40 MG TABLET PO SCH (08:26)
[2016-11-14] MEDS: ASCORBIC ACID 500 MG TABLET PO SCH ×2 (08:26→16:18)
[2016-11-14] MEDS: METFORMIN 850 MG TABLET PO SCH ×2 (08:26→16:18)
[2016-11-14] MEDS: BENZTROPINE MESYLATE (1 MG) 1 MG TABLET PO SCH (08:27)
[2016-11-14] MEDS: HEPARIN SODIUM, PORCINE 5000 UNITS/1 ML VIAL SQ SCH (08:36)
[2016-11-14] MEDS: INSULIN REGULAR, HUMAN 100 UNIT/ML 3 ML VIAL SQ PRN ×2 (11:56→17:18)
--- NOTE | 2016-11-14 15:22 | NUR ---
RN NOTES PT SEEN AND EVALUATED BY DR GOMEZ WITH ORDER TO DISCHARGE TO SNF. REPORT GIVEN TO BHUPINDER, HEALTH INFORMATION TECH OF [facility].
[2016-11-14 16:00] VITALS: BP 124/59
--- NOTE | 2016-11-14 18:12 | NUR ---
CONSTRUCTION PLANT OPERATOR NOTES PATIENT DISCHARGED TO [facility] IN STABLE CONDITION. LEFT UNIT A/0 X 3 VIA GURNEY AT 1810H VIA GURNEY ACCOMPANIED BY 2 EMS. V/S TAKEN AND RECORDED. PHOTOS OF SKIN TAKEN AND FILED ON CHART. BELONGINGS CHECKED, COUNTED AND SIGNED FORM. HEALTH TEACHINGS GIVEN AND VERBALIZED UNDERSTANDING. MD AND NURSE FORMULA MIXER AWARE OF DISCHARGE.
== END 2016-11-14 17:50 | DRG 371 ==
LOC: ER 06:46 → TELE 10:45 → MED 11-10 09:30 → MEDSG2 11-12 12:06
PROVIDERS: ADMIT Nurse Practitioner Acute Care; ATTEND Nurse Practitioner Acute Care
DX: A04.9 Bacterial intestinal infection, unspecified (principal); N17.0 Acute kidney failure with tubular necrosis; E11.9 Type 2 diabetes mellitus without complications; D63.8 Anemia in other chronic diseases classified elsewhere; I10 Essential (primary) hypertension; K92.2 Gastrointestinal hemorrhage, unspecified; Z68.43 Body mass index [BMI] 50.0-59.9, adult; E66.01 Morbid (severe) obesity due to excess calories; A08.4 Viral intestinal infection, unspecified; M17.11 Unilateral primary osteoarthritis, right knee; Z79.899 Other long term (current) drug therapy; E78.5 Hyperlipidemia, unspecified; N18.9 Chronic kidney disease, unspecified; I12.9 Hypertensive chronic kidney disease with stage 1 through stage 4 chronic kidney disease, or unspecified chronic kidney disease; Z79.4 Long term (current) use of insulin
CPT/HCPCS: 36415; 71010-TC; 71250-TC; 80048-TC; 80076-TC; 81000-TC; 82272-TC; 82962-TC; 83605-TC; 83735-TC; 83880; 84100-TC; 84484-TC; 85025-TC; 85730-TC; 87040-TC; 87045-TC; 87081-TC; 87086-TC; 93307-TC; 97116-TC; 97530-TC; A4606; J1644; J1815; J2270; J2405; J2543; J3475; J7030; J7040; J7050; J7060; Z7610

== ENCOUNTER 2017-06-04 22:25 | Emergency (ER) | payer MEDICARE, MEDICAID ==
[~2017-06-04] VITALS: Ht 165.1 cm; Wt 80.7 kg
[~2017-06-04 22:25] MED LIST: ACET-868 PO; AMLO10TA6 PO; ASCO-340 PO; ASPI-1169 PO; ATOR40TA PO; BENZ1TAB7 PO; CLON0.5T12 PO; DIVA-78 PO; DOCU100C36 PO; FENO145T PO; FERR325T23 PO; FURO40TA5 PO; IBUP-1957 PO; INSU100I4 SQ; INSU3INS6 SQ; METF-441 PO; METO50TA16 PO; METR500T PO; OLAN5TAB3 PO; OMEG500C PO; OMEP20CA10 PO
--- NOTE | 2017-06-04 22:45 | NUR ---
PT BIB PA WITH A C/O N/V SOLDERER TORCH. PT IS BENINESE SPEAKING ONLY. (VERY LITTLE NORTHERN IRISH). PT IS ALSO C/O DIARRHEA SOLDERER TORCH. PT IS ON THE MONITOR AND CONTINUOUS PULSE OX.
[2017-06-04 23:19] LABS: BASOPHILS # (AUTO) 0.1 /CMM (0.0-0.2); BASOPHILS % (AUTO) 1.1 % (0.0-2.0); EOSINOPHILS % (AUTO) 0.8 % (0.0-6.0); HEMATOCRIT 28 % (33-45); HEMOGLOBIN 9.2 g/dL (11.5-14.8); LYMPHOCYTES # (AUTO) 1.4 /CMM (0.8-4.8); LYMPHOCYTES % (AUTO) 31.3 % (20.0-44.0); MEAN CORPUSCULAR HGB CONC 33 g/dl (31.0-36.0); MEAN CORPUSCULAR VOLUME 90 fL (82-100); MONOCYTES # (AUTO) 0.2 /CMM (0.1-1.30); NEUTROPHILS # (AUTO) 2.9 /CMM (1.8-8.9); NEUTROPHILS % (AUTO) 62.8 % (43.0-81.0); PLATELET COUNT (AUTO) 210 /CMM (150-450); RDW COEFFICIENT OF VARIATION 17.2 (11.5-15.0); WHITE BLOOD COUNT (AUTO) 4.6 K/uL (4.3-11.0)
[2017-06-04 23:50] LABS: CALCIUM, SERUM 8.2 mg/dL (8.5-10.1); CREATININE 1.7 mg/dL (0.6-1.3); POTASSIUM 3.7 mmol/L (3.5-5.1)
[2017-06-04 23:56] LABS: ALBUMIN 2.5 g/dL (3.4-5.0); BILIRUBIN,DIRECT 0.4 mg/dL (0.0-0.2); BILIRUBIN,TOTAL 0.7 mg/dL (0.2-1.0); TOTAL PROTEIN, SERUM 7.1 g/dL (6.4-8.2)
--- NOTE | 2017-06-05 00:09 | NUR ---
IN & OUT CATH DONE AND APPROX 300 ML YELLOW CLOUDY URINE OUTPUT NOTED. SAMPLE OBTAINED AND LAB CALLED FOR P/U.
[2017-06-05 01:03] LABS: APPEARANCE,URINE CLOUDY (CLEAR); BILIRUBIN,URINE NEGATIVE (NEGATIVE); BLOOD, URINE 2+ Ery/uL (NEGATIVE); COLOR,URINE YELLOW (YELLOW); KETONES,URINE NEGATIVE (NEGATIVE); LEUKOCYTE ESTERASE ,URINE 1+ (NEGATIVE); NITRITE, URINE POSITIVE (NEGATIVE); PH,URINE 6.5 (5.0-8.0); PROTEIN,URINE 2+ mg/dl (NEGATIVE); UGLUCOSE NEGATIVE (NEGATIVE); UROBILINOGEN,URINE 0.2 EU/dL (0.2)
--- NOTE | 2017-06-05 01:13 | NUR ---
CALLED LAB RE: URINE SAMPLE THAT WAS SENT. URINE IS RUNNING.
[2017-06-05 01:21] LABS: BACTERIA,URINE Many /HPF (None Seen); SQUAMOUS EPITHELIAL CELL,UR Few /HPF (None Seen); WBC,URINE 81-100 /HPF (0-3)
--- NOTE | 2017-06-05 01:32 | NUR ---
PT APPEARS TO BE SLEEPING SOUNDLY WITH NO S/S OF DISTRESS. PT'S O2 SAT WAS 89% ON RA WHILE SLEEPING. PT WAS PLACED ON 2L O2 VIA NC AND IS NOW 99%. PT WAS EASILY AROUSED AND QUICKLY WENT BACK TO SLEEP.
[2017-06-05] MEDS ORDERED: CEFTRIAXONE 1GM BAG (ER ONLY) 50 ML IV ONE (01:39)
[2017-06-05] MEDS ORDERED: CEFTRIAXONE 1 G in IV D5W 50 ML IV ONE (02:00)
--- NOTE | 2017-06-05 02:08 | NUR ---
PT WAS C/O HAVING TO GO TO THE BATHROOM. PT WAS PLACED ON A BED REDD. PT C/O PAIN WITH URINATION. PT HAD APPROX 100 ML CONCENTRATED URINE OUTPUT. PT WAS CLEANED AND NEW DIAPER APPLIED.
--- NOTE | 2017-06-05 02:22 | NUR ---
CALLED [facility]. TRIP #[id number] ETA 6:45-7:15AM.
--- NOTE | 2017-06-05 04:11 | NUR ---
PT APPEARS TO BE SLEEPING SOUNDLY WITH NO S/S OF PAIN OR DISTRESS. WILL CONTINUE TO MONITOR THE PT.
--- NOTE | 2017-06-05 06:21 | NUR ---
IV removed. Catheter intact and site benign. Pressure and 4x4 applied to site. No bleeding noted. REPORT GIVEN TO VICKI CHAVEZ FOR JOSE GUADALUPE. PT VSS. PT AWARE OF TRANSFER BACK TO [facility]. D/C PAPERS PROVIDED TO EMT. PER VICKI TOOK OVER CARE.
--- NOTE | 2017-06-05 06:24 | NUR ---
PT APPEARS TO BE RESTING COMFORTABLY. VSS. PT IS ON THE MONITOR AND CONTINUOUS PULSE OX.
[2017-06-05 06:25] VITALS: BP 127/63
== END 2017-06-05 06:26 | disposition home or self-care (01) ==
LOC: ER 22:28
DX: N30.00 Acute cystitis without hematuria (principal); N28.9 Disorder of kidney and ureter, unspecified; D64.9 Anemia, unspecified; E11.9 Type 2 diabetes mellitus without complications; E78.5 Hyperlipidemia, unspecified; F32.9 Major depressive disorder, single episode, unspecified; F41.9 Anxiety disorder, unspecified; I11.0 Hypertensive heart disease with heart failure; I50.9 Heart failure, unspecified; F20.9 Schizophrenia, unspecified; K21.9 Gastro-esophageal reflux disease without esophagitis; K76.0 Fatty (change of) liver, not elsewhere classified; Z79.4 Long term (current) use of insulin; Z79.82 Long term (current) use of aspirin
CPT/HCPCS: 36415; 80048-TC; 80076-TC; 81000-TC; 85025-TC; 87086-TC; 87186-TC; A4606; J0696; J7060; Z7610

== ENCOUNTER 2018-02-04 21:10 | Emergency (ER) | payer MEDICARE, MEDICAID ==
[~2018-02-04] VITALS: Ht 165.1 cm; Wt 80.7 kg
--- NOTE | 2018-02-04 21:20 | NUR ---
to bed 2 bib [facility] ambulance c/o highblood pressure sbp-200's, bilateral knee pain s/p glf. pt aaox4 no acute distress noted, resp even and unlabored. place pt on cardiac monitoring, continuous pox. pending er md gama.
[2018-02-04] MEDS ORDERED: CLONIDINE HCL 0.1 MG TABLET ONE (21:53)
[2018-02-04] MEDS ORDERED: CLONIDINE HCL 0.1 MG TABLET PO ONE (22:00)
--- NOTE | 2018-02-04 22:05 | NUR ---
marine services technician at bedside for xrays.
--- NOTE | 2018-02-04 23:21 | NUR ---
pt asleep, easily arousable, no acute distress noted, resp even and unlabored. call light within reach. will continue to monitor pt closely.
--- NOTE | 2018-02-04 23:45 | NUR ---
CALLED [facility] FOR TRANSPORT ETA OF 0000 WAS GIVEN. TRIP#[id number]
--- NOTE | 2018-02-05 00:12 | NUR ---
transport at bedside report given to emt transport.
[2018-02-05 00:13] VITALS: BP 142/60
--- NOTE | 2018-02-05 00:25 | NUR ---
report called to [facility] staff belinda.
== END 2018-02-05 00:27 | disposition home or self-care (01) ==
LOC: ER 21:11
DX: S50.312A Abrasion of left elbow, initial encounter (principal); S80.212A Abrasion, left knee, initial encounter; I11.0 Hypertensive heart disease with heart failure; I50.9 Heart failure, unspecified; K21.9 Gastro-esophageal reflux disease without esophagitis; E11.9 Type 2 diabetes mellitus without complications; F32.9 Major depressive disorder, single episode, unspecified; F20.9 Schizophrenia, unspecified; F41.9 Anxiety disorder, unspecified; G47.00 Insomnia, unspecified; Z90.49 Acquired absence of other specified parts of digestive tract; Z79.4 Long term (current) use of insulin; Z79.82 Long term (current) use of aspirin; W01.0XXA Fall on same level from slipping, tripping and stumbling without subsequent striking against object, initial encounter; Y93.89 Activity, other specified; Y92.89 Other specified places as the place of occurrence of the external cause; Y99.8 Other external cause status
CPT/HCPCS: 73552; 73564-TC; A4606; Z7610

== ENCOUNTER 2018-04-14 04:55 | Inpatient (IN) | payer MEDICARE, MEDICAID ==
[~2018-04-14] VITALS: Ht 157.5 cm; Wt 77.1 kg
[2018-04-14] VITALS (14 sets, daily range): BP systolic 132–240; BP diastolic 61–96
[~2018-04-14 04:55] MED LIST changes: -AMLO10TA6 PO; +AMLO10TA7 PO
--- NOTE | 2018-04-14 05:18 | NUR ---
PT BIBRA FROM STREETS D/T PT ELOPING FROM FACILITY & ASKING BYSTANDERS TO CALL EMS D/T HAVING SUBSETRNAL CP, NONRADIATING. -SOB. 1 NITRO, 162 ASA GIVEN RECREATION ATTENDANT. BS 101. PT ON MONITOR IN BED 1. BAHRAINI SPEAKING. WILL CONTINUE TO MONITOR.
--- NOTE | 2018-04-14 05:20 | NUR ---
TECH AT BEDSIDE FOR EKG
--- NOTE | 2018-04-14 05:26 | NUR ---
BLOOD DRAWN AND GIVEN TO LAB
--- NOTE | 2018-04-14 05:29 | NUR ---
RADIOLOGY AT BEDSIDE FOR CXR
[2018-04-14 05:38] LABS: EOSINOPHILS % (AUTO) 2.4 % (0.0-6.0); HEMATOCRIT 29 % (33-45); HEMOGLOBIN 9.6 g/dL (11.5-14.8); LYMPHOCYTES # (AUTO) 1.8 /CMM (0.8-4.8); LYMPHOCYTES % (AUTO) 40.1 % (20.0-44.0); MEAN CORPUSCULAR HGB CONC 33 g/dl (31.0-36.0); MEAN CORPUSCULAR VOLUME 92 fL (82-100); MONOCYTES # (AUTO) 0.2 /CMM (0.1-1.30); MONOCYTES % (AUTO) 4.6 % (2.0-12.0); NEUTROPHILS # (AUTO) 2.3 /CMM (1.8-8.9); NEUTROPHILS % (AUTO) 51.9 % (43.0-81.0); PLATELET COUNT (AUTO) 179 /CMM (150-450); WHITE BLOOD COUNT (AUTO) 4.4 K/uL (4.3-11.0)
[2018-04-14 05:46] LABS: CALCIUM, SERUM 8.8 mg/dL (8.5-10.1); CARBON DIOXIDE 24 mmol/L (21-32); CHLORIDE 106 mmol/L (98-107); CREATININE 1.4 mg/dL (0.6-1.3); GLUCOSE 220 mg/dL (74-106); POTASSIUM 4.6 mmol/L (3.5-5.1); SODIUM SERUM 140 mmol/L (136-145); UREA NITROGEN, BLOOD 23 mg/dL (7-18)
[2018-04-14] MEDS ORDERED: hydrALAZINE HCL IV 20 MG VIAL ONE ×2 (06:57→08:14)
[2018-04-14] MEDS ORDERED: hydrALAZINE HCL IV 20 MG VIAL IV ONE ×2 (07:00→08:30)
--- NOTE | 2018-04-14 07:16 | NUR ---
ENDORSED TO AGUILAR RAO FOR JOSE GUADALUPE
[2018-04-14] MEDS ORDERED: QUET50TA PO (08:45)
[2018-04-14] MEDS ORDERED: DIVA-76 PO (08:45)
[2018-04-14] MEDS ORDERED: BISA-79 PO (08:45)
[2018-04-14] MEDS ORDERED: MULT-213 PO (08:45)
[2018-04-14] MEDS ORDERED: BENA20TA9 PO (08:45)
[2018-04-14] MEDS ORDERED: INSU100I26 SQ (08:45)
[2018-04-14] MEDS ORDERED: POTA20TA83 PO (08:53)
[2018-04-14] MEDS ORDERED: HYDR12.55 PO (08:53)
[2018-04-14] MEDS ORDERED: HYDR-4384 PO (08:53)
--- NOTE | 2018-04-14 08:56 | NUR ---
wheeled patient to room 307-1 t via acls protocol, in no apparent distress noted.
[2018-04-14] MEDS: ASCORBIC ACID 500 MG TABLET PO SCH (10:00)
[2018-04-14] MEDS: ASPIRIN 81 MG TAB.CHEW PO SCH (10:00)
[2018-04-14] MEDS: hydrALAZINE HCL 50 MG TABLET PO SCH ×3 (10:00→17:00)
[2018-04-14] MEDS ORDERED: METOPROLOL TARTRATE 50 MG TABLET PO SCH (10:00)
[2018-04-14] MEDS: HEPARIN SODIUM, PORCINE 5000 UNITS/1 ML VIAL SQ SCH ×2 (10:00→21:50)
[2018-04-14] MEDS ORDERED: Z GUARD REMEDY 2 OZ OINT TP PRN (10:00)
[2018-04-14] MEDS ORDERED: NITROGLYCERIN 0.4 MG/TAB BOTTLE SL PRN (10:00)
[2018-04-14] MEDS ORDERED: ACETAMINOPHEN 325 MG TABLET PO PRN (10:00)
[2018-04-14] MEDS ORDERED: DEXTROSE 50%-WATER 50 ML DISP.SYRIN IV PRN (10:00)
[2018-04-14] MEDS: NITROGLYCERIN 30 GM TUBE TP SCH ×2 (10:00→22:40)
[2018-04-14] MEDS: AMLODIPINE BESYLATE 5 MG TABLET PO SCH (10:00)
--- NOTE | 2018-04-14 10:15 | NUR ---
SHORE WORKING SUPERVISOR OPENING NOTES PT AWAKE, CRYING; A/O X2. ARRIVED AT THE UNIT VIA GURNEY, ABLE TO AMBULATE TO BED. IVC TO RAC G20 SALINE FLUSH PATENT. PT STATING SHE HAS PAIN ALL OVER HER BODY INCLUDING BIZARRE STATEMENTS RELATED TO HYSTERECTOMY PAIN AND CONCERNS ABOUT BEING MISTREATED AND OTHER RESIDENTS GETTING OLD AND LETTING EVERYBODY . PT STATES SHE TOO WANTS TO . DENIES HEARING VOICES OR HAVING PLAN TO SELF HARM. PT REFUSING ALL CARE. REFUSED TO BE COMPREHENSIVE SKIN OR PHYSICAL ASSESSMENT, REFUSING TO ANSWER GENERAL QUESTIONS PER ADMISSION PROTOCOL, WILL ADMIT FROM PREVIOUS ADMISSION NOTES AND SNF DETAILS. PT SEEN BY RESIDENT ENGINEER CC BUT REFUSED TO COMMUNICATE MORE THAN STATING 'I'M SAD'. PT THREW CELLPHONE AT STAFF/WALL. PT HYPERTENSIVE BUT REFUSING ALL MEDICINE, PT EDUCATED ABOUT RISKS BUT REMAINS REFUSING. PT SPAT PRN PAIN MEDICINE. RESIDENT ENGINEER CC AND ROAD GRADER OPERATOR AWARE OF PT HEALTH STATUS AND BEHAVIOR. BED IN LOWEST, LOCKED POSITION WITH SR X2. CALL CARVAJAL WITHIN REACH. RELUCTANT TO ENGAGE.
[2018-04-14] MEDS: HYDROCODONE/APAP 5/325MG 1 EACH TABLET PO PRN ×2 (10:23→13:02)
[2018-04-14] MEDS ORDERED: METOPROLOL TARTRATE INJ 5 MG/5 ML AMPUL IVP PRN (11:30)
[2018-04-14] MEDS: BLOOD SUGAR DIAGNOSTIC 1 EACH STRIP IN SCH ×3 (12:00→21:45)
[2018-04-14] MEDS: FERROUS SULFATE (325 MG) 325 MG/TAB TABLET PO SCH ×2 (12:31→17:00)
[2018-04-14] MEDS: VENLAFAXINE 37.5 MG TABLET PO SCH (14:33)
--- NOTE | 2018-04-14 15:45 | NUR ---
FILLER ROOM ATTENDANT NOTES PT RESTING IN BED. MANUAL BP 240/90 WAS RECORDED. PT IS REFUSISING ORAL MEDICATIONS. STATES HAS HEADACHE AND GENERALIZED BODY PAIN. CHARGE NURSE MADE AWARE AND HOURLY SHIFT MANAGER CC CONTACTED. HOURLY SHIFT MANAGER CC TO PLACE ORDERS.
--- NOTE | 2018-04-14 16:15 | NUR ---
COTTON FARMER NOTES PT ACLS TRANSPORT WITH MONITOR VIA BED TO ICU ROOM 262. REPORT GIVEN TO INGRID SHEIKH AT BEDSIDE. PT WITH ALL BELONGINGS INCLUDING WALKER AND CELLPHONE.
--- NOTE | 2018-04-14 16:45 | NUR ---
PHOTOLITH OPERATOR TRANSFERRED TO ICU FROM 3W BY BED WITH MONITOR. PT TRANSFERRED FOR HIGH BP NOT WELL CONTROLLED. PT TRANSFERRED WITH WALKER. REPORT RECEIVED FROM 3W RN. PT QUIET BUT ABLE TO NOD YES OR NO WHEN ASKED IN URDU. WILL START NICARDIPINE DRIP WHEN AVAILABLE.
[2018-04-14] MEDS: ONDANSETRON HCL/PF 4 MG/2 ML VIAL IVP PRN (16:55)
[2018-04-14] MEDS: METOPROLOL TARTRATE 50 MG TABLET PO SCH (17:00)
[2018-04-14] MEDS: BISACODYL (5 MG) 5 MG TABLET.DR PO SCH (17:00)
--- NOTE | 2018-04-14 17:07 | NUR ---
SERVICE COUNTER CASHIER MEDICATED WITH ZOFRAN FOR N/V X 1.
[2018-04-14] MEDS: NICARDIPINE IN DEXTROSE,ISO-OS 200 ML IV PRN ×2 (17:54→22:20)
[2018-04-14] MEDS ORDERED: LORAZEPAM INJ 2 MG/ML VIAL ONE ×2 (18:31→19:09)
[2018-04-14] MEDS: INSULIN REGULAR, HUMAN 100 UNIT/ML 3 ML VIAL SQ PRN ×2 (19:24→22:04)
--- NOTE | 2018-04-14 20:07 | NUR ---
OFFSET PROOF PRESS OPERATOR. INITIAL ASSESSMENT. RECEIVED THE PT REST ON THE BED. AWAKE, ALERT, POOR CONCENTRATION. OB/GYN SHOWING NSR, IV RT AC 20G. CARDENE 5MCG RUNNING. HOB ELEVATED. PT ON ROOM AIR. WILL CONTINUE TO MONITOR VITALS.
[2018-04-14] MEDS: QUETIAPINE FUMARATE 25 MG TABLET PO SCH (21:44)
[2018-04-14] MEDS: ATORVASTATIN 10 MG TABLET PO SCH (21:44)
[2018-04-15] VITALS (23 sets, daily range): BP systolic 87–159; BP diastolic 42–94
[2018-04-15] MEDS ORDERED: NICARDIPINE IN DEXTROSE,ISO-OS 200 ML IV ONE (01:47)
--- NOTE | 2018-04-15 03:21 | NUR ---
LOAN SPECIALIST. AM CARE, ORAL CARE, BED BATH GIVEN. LINEN CHANGED.HOB ELEVATED. PT IS NPO. TURN AND REPOSITION Q2H. WILL CONTINUE TO MONITOR VITALS.
[2018-04-15 04:47] LABS: BASOPHILS # (AUTO) 0.1 /CMM (0.0-0.2); EOSINOPHILS % (AUTO) 0.3 % (0.0-6.0); HEMATOCRIT 29 % (33-45); HEMOGLOBIN 9.7 g/dL (11.5-14.8); LYMPHOCYTES # (AUTO) 1.7 /CMM (0.8-4.8); MEAN CORPUSCULAR HGB CONC 33 g/dl (31.0-36.0); MEAN CORPUSCULAR VOLUME 89 fL (82-100); MONOCYTES # (AUTO) 0.3 /CMM (0.1-1.30); NEUTROPHILS # (AUTO) 3.9 /CMM (1.8-8.9); NEUTROPHILS % (AUTO) 65.7 % (43.0-81.0); PLATELET COUNT (AUTO) 214 /CMM (150-450); RED BLOOD CELL COUNT(AUTO) 3.24 MIL/uL (4.0-5.2)
[2018-04-15 05:18] LABS: ALBUMIN 2.8 g/dL (3.4-5.0); BILIRUBIN,TOTAL 0.3 mg/dL (0.2-1.0); CALCIUM, SERUM 8.6 mg/dL (8.5-10.1); CREATININE 1.6 mg/dL (0.6-1.3); MAGNESIUM 1.5 mg/dL (1.8-2.4); PHOSPHORUS 4.9 mg/dL (2.5-4.9); POTASSIUM 4.6 mmol/L (3.5-5.1)
--- NOTE | 2018-04-15 05:54 | NUR ---
ENERGY MANAGEMENT SPECIALIST. PT HAS FEVER 100.6AND HEADACHE. TYLENOL GIVEN PER MD ORDERED.
[2018-04-15] MEDS ORDERED: REGADENOSON 0.4 MG/5 ML DISP.SYRIN IVP ONE (08:00)
[2018-04-15] MEDS: BLOOD SUGAR DIAGNOSTIC 1 EACH STRIP IN SCH ×4 (08:16→21:05)
[2018-04-15] MEDS: INSULIN REGULAR, HUMAN 100 UNIT/ML 3 ML VIAL SQ PRN ×4 (08:29→21:04)
[2018-04-15] MEDS: HEPARIN SODIUM, PORCINE 5000 UNITS/1 ML VIAL SQ SCH ×2 (08:43→20:50)
[2018-04-15] MEDS: HYDROCODONE/APAP 5/325MG 1 EACH TABLET PO PRN ×4 (08:44→15:29)
[2018-04-15] MEDS: PANTOPRAZOLE 40 MG TABLET.DR PO SCH (08:45)
[2018-04-15] MEDS: LISINOPRIL (20MG) 20 MG TABLET PO SCH (08:45)
[2018-04-15] MEDS: BISACODYL (5 MG) 5 MG TABLET.DR PO SCH ×2 (08:46→16:37)
[2018-04-15] MEDS: FERROUS SULFATE (325 MG) 325 MG/TAB TABLET PO SCH ×3 (08:46→16:37)
[2018-04-15] MEDS: hydrALAZINE HCL 50 MG TABLET PO SCH ×3 (08:46→16:38)
[2018-04-15] MEDS: ASCORBIC ACID 500 MG TABLET PO SCH (08:46)
[2018-04-15] MEDS: BENZTROPINE MESYLATE (1 MG) 1 MG TABLET PO SCH (08:47)
[2018-04-15] MEDS: AMLODIPINE BESYLATE 5 MG TABLET PO SCH ×2 (08:47→16:37)
[2018-04-15] MEDS: METOPROLOL TARTRATE 50 MG TABLET PO SCH ×2 (08:48→16:38)
[2018-04-15] MEDS: QUETIAPINE FUMARATE 25 MG TABLET PO SCH ×2 (08:48→20:47)
[2018-04-15] MEDS: VENLAFAXINE 37.5 MG TABLET PO SCH (09:00)
[2018-04-15] MEDS: ASPIRIN 81 MG TAB.CHEW PO SCH (09:14)
[2018-04-15] MEDS: MULTIVIT W/MINERALS 1 TAB TABLET PO SCH (09:15)
[2018-04-15] MEDS: NITROGLYCERIN 30 GM TUBE TP SCH ×2 (09:16→21:00)
[2018-04-15] MEDS: ONDANSETRON HCL/PF 4 MG/2 ML VIAL IVP PRN (09:16)
--- NOTE | 2018-04-15 11:04 | NUR ---
REPORT TO MADISON, ALL QUESTIONS ANSWERED
--- NOTE | 2018-04-15 11:04 | NUR ---
pt recieved this morning c/oheadache, nausea and warmth//gave pt norco, and one hour later pt eating and relaxed/no complaints/took meds, and food/v/s stable/prepped pt for transfer
[2018-04-15] MEDS: Magnesium 1GM/D5W 100ML PREMIX 100 ML IV SCH ×2 (11:11→11:13)
--- NOTE | 2018-04-15 15:59 | NUR ---
RN NOTES 12PM- RECEIVED TRANSFER PATIENT FROM ICU. AOX2 PERIODS OF CONFUSION. NO APPARENT DISTRESS SATURATION 95% IN ROOM AIR. NO COMPLAIN OF CHEST PAIN OR OTHER PAIN. TELE MONITOR PLACED REVEALS nsr HR 76. BED BATH DONE. AND TOLERATED WELL. IV SITE INTACT ON RAC RUNNING WITH MAGNESIUM IV. AFEBRILE .VSS. CALL LIGHT KEPT WITHIN EASY REACH. REMINDED TO USE FOR ASSISTANCE. BED ALARM ON. ALL DUE MEDS GIVEN ORDERED. 40% OF MEAL ATE FOR LUNCH. 1400 PM - S/E BY DR. POTTER ON THE FLOOR. 1540PM - PT COMPLAIN OF PAIN ON HER ABDOMEN AND BOTH LEGS PRN PAIN MEDICINE GIVEN. 1600 PM - PATIENT IS RESTING AT THIS TIME. NO SIGNIFICANT CHANGES
--- NOTE | 2018-04-15 16:40 | NUR ---
MS RN NOTE RECEIVED PATIENT FROM JULITO RN ALERT WITH CONFUSION , NO SOB NOTED RT AC HL INTACT NO S\S INFECTION NOTED , BED IN LOWEST AND LOCKED POSITION, ABLE TO MAKE BM, KEEP CLEAN DRY WILL CONT TO MONITOR CLOSELY CALL LIGHT WITHIN REACH PLAN OF CARE DISCUSSED WITH PATIENT
--- NOTE | 2018-04-15 18:42 | NUR ---
MS RN NOTE ALL NEEDS ATTENDED, FED BY STAFF NOT IN DISTRESS
[2018-04-15] MEDS: ATORVASTATIN 10 MG TABLET PO SCH (20:47)
[2018-04-15] MEDS: ZOLPIDEM TARTRATE 5 MG TABLET PO PRN (20:47)
[2018-04-16 04:00] VITALS: BP 157/87
[2018-04-16] MEDS: HYDROCODONE/APAP 5/325MG 1 EACH TABLET PO PRN (04:02)
[2018-04-16 06:51] LABS: BASOPHILS # (AUTO) 0.1 /CMM (0.0-0.2); BASOPHILS % (AUTO) 1.2 % (0.0-2.0); EOSINOPHILS % (AUTO) 2.3 % (0.0-6.0); HEMATOCRIT 28 % (33-45); HEMOGLOBIN 9.2 g/dL (11.5-14.8); LYMPHOCYTES % (AUTO) 36.4 % (20.0-44.0); MEAN CORPUSCULAR HGB CONC 33 g/dl (31.0-36.0); MEAN CORPUSCULAR VOLUME 90 fL (82-100); MONOCYTES # (AUTO) 0.3 /CMM (0.1-1.30); MONOCYTES % (AUTO) 5.9 % (2.0-12.0); NEUTROPHILS % (AUTO) 54.2 % (43.0-81.0); PLATELET COUNT (AUTO) 205 /CMM (150-450); RED BLOOD CELL COUNT(AUTO) 3.08 MIL/uL (4.0-5.2); WHITE BLOOD COUNT (AUTO) 5.6 K/uL (4.3-11.0)
--- NOTE | 2018-04-16 07:00 | NUR ---
MS RN OPENING NOTES PT RECEIVED IN BED, A/OX2 WITH SOME CONFUSION. PT ON ROOM AIR. NO S/SX OF RESP DISTRESS. PT NPO AWAITING STRESS TEST. IV SITE PATENT/FLUSHED NO S/SX INFILTRATION. ASSISTIVE DEVICE AT BEDSIDE. HR REGULAR/LUNG SOUNDS CLEAR TO AUSCULATION. PT C/O HEADACHE; PT UNABLE TO USE PAIN SCALE APPROPRIATELY. BED IN LOCKED/LOWEST POSITION. CALL LIGHT IN REACH. WILL CONT TO MONITOR.
[2018-04-16 07:24] LABS: ALBUMIN 2.8 g/dL (3.4-5.0); BILIRUBIN,TOTAL 0.3 mg/dL (0.2-1.0); CALCIUM, SERUM 8.6 mg/dL (8.5-10.1); CREATININE 1.8 mg/dL (0.6-1.3); MAGNESIUM 1.8 mg/dL (1.8-2.4); PHOSPHORUS 4.6 mg/dL (2.5-4.9); POTASSIUM 4.2 mmol/L (3.5-5.1); TOTAL PROTEIN, SERUM 6.8 g/dL (6.4-8.2)
[2018-04-16] MEDS: BLOOD SUGAR DIAGNOSTIC 1 EACH STRIP IN SCH ×4 (07:51→21:50)
[2018-04-16 08:00] VITALS: BP 158/73
[2018-04-16] MEDS ORDERED: REGADENOSON 0.4 MG/5 ML DISP.SYRIN IVP ONE ×2 (08:00)
[2018-04-16] MEDS: LISINOPRIL (20MG) 20 MG TABLET PO SCH (08:52)
[2018-04-16] MEDS: MULTIVIT W/MINERALS 1 TAB TABLET PO SCH (08:52)
[2018-04-16] MEDS: hydrALAZINE HCL 50 MG TABLET PO SCH ×3 (08:52→17:24)
[2018-04-16] MEDS: BISACODYL (5 MG) 5 MG TABLET.DR PO SCH ×2 (08:53→17:23)
[2018-04-16] MEDS: PANTOPRAZOLE 40 MG TABLET.DR PO SCH (08:53)
[2018-04-16] MEDS: ASCORBIC ACID 500 MG TABLET PO SCH (08:53)
[2018-04-16] MEDS: ASPIRIN 81 MG TAB.CHEW PO SCH (08:53)
[2018-04-16] MEDS: BENZTROPINE MESYLATE (1 MG) 1 MG TABLET PO SCH (08:53)
[2018-04-16] MEDS: VENLAFAXINE 37.5 MG TABLET PO SCH (08:53)
[2018-04-16] MEDS: AMLODIPINE BESYLATE 5 MG TABLET PO SCH ×2 (08:54→17:24)
[2018-04-16] MEDS: METOPROLOL TARTRATE 50 MG TABLET PO SCH ×2 (08:54→17:25)
[2018-04-16] MEDS: HEPARIN SODIUM, PORCINE 5000 UNITS/1 ML VIAL SQ SCH ×2 (08:55→20:54)
[2018-04-16] MEDS: NITROGLYCERIN 30 GM TUBE TP SCH ×2 (08:56→20:56)
[2018-04-16] MEDS: QUETIAPINE FUMARATE 25 MG TABLET PO SCH ×2 (08:57→20:53)
[2018-04-16] MEDS: FERROUS SULFATE (325 MG) 325 MG/TAB TABLET PO SCH ×3 (08:57→17:25)
[2018-04-16] MEDS: INSULIN REGULAR, HUMAN 100 UNIT/ML 3 ML VIAL SQ PRN ×4 (09:13→21:35)
--- NOTE | 2018-04-16 10:25 | NUR ---
MS RN NOTES PT WENT TO [facility] WITH TV NEWS DIRECTOR.
[2018-04-16 11:12] LABS: *SPE A/G RATIO 0.8 (0.7-1.7); *SPE ALBUMIN 2.8 g/dL (2.9-4.4); *SPE ALPHA-1-GLOBULIN 0.2 g/dL (0.0-0.4); *SPE ALPHA-2-GLOBULIN 0.9 g/dL (0.4-1.0); *SPE BETA GLOBULIN 1.3 g/dL (0.7-1.3); *SPE GLOBULIN, TOTAL 3.7 g/dL (2.2-3.9); *SPE M-SPIKE Not Observed g/dL (Not Observed); *SPEGAMMA GLOBULIN 1.3 g/dL (0.4-1.8)
[2018-04-16 12:00] VITALS: BP 144/78
--- NOTE | 2018-04-16 12:42 | NUR ---
WOUND CARE CONSULT WOUND CARE RECEIVED CONSULT FOR OPEN ABD WOUND (OLD SURGERY). WOUND CARE WILL DEFER CONSULT AND ALL TREATMENT PLANS TO PLASTIC SURGICAL TEAM WHO HAVE BEEN NOTIFIED OF THIS CONSULT. PATIENT MONA AT 17, ALL PRESSURE ULCER PREVENTION MEASURES ARE NOTED TO BE IN PLACE. WILL SEE PRN.
[2018-04-16 16:00] VITALS: BP 152/77
[2018-04-16] MEDS: buPROPion 75 MG TABLET PO SCH (17:25)
--- NOTE | 2018-04-16 18:59 | NUR ---
MS RN CLOSING NOTES PT AMBULATING IN HALLWAY WITH ASSISTIVE DEVICE. ASSISTED TO ROOM SAFELY. PT HAS STEADY GAIT. PT ON ROOM AIR; NO C/O PAIN. BED IN LOCKED/LOWEST POSITION. CALL LIGHT IN REACH. ENDORSED TO PM SHIFT FOR JOSE GUADALUPE.
[2018-04-16 20:00] VITALS: BP 152/62
[2018-04-16] MEDS: ATORVASTATIN 10 MG TABLET PO SCH (20:53)
[2018-04-16] MEDS: ZOLPIDEM TARTRATE 5 MG TABLET PO PRN (20:54)
[2018-04-17] MEDS: HYDROCODONE/APAP 5/325MG 1 EACH TABLET PO PRN (01:14)
[2018-04-17 04:00] VITALS: BP 139/68
--- NOTE | 2018-04-17 06:26 | NUR ---
RN NOTES ALERT AND ORIENTED WITH EPISODES OF FORGETFULNESS. AMBULATORY WITH FOUR WHEEL WALKER. CONTINENT OF BOWEL AND BLADDER FUNCTION. VERBAL, YAKUT SPEAKING. UNDERSTAND A LITTLE GERMAN. COMPLAINED OF HEADACHE, NORCO GIVEN WITH RELIEF. REQUESTED SLEEPING PILL, WITH HELP. VITAL SIGNS WNL. KEPT CLEAN AND DRY.
--- NOTE | 2018-04-17 07:10 | NUR ---
RN NOTES ALERT AND ORIENTED WITH EPISODES OF FORGETFULNESS. AMBULATORY WITH FOUR WHEEL WALKER. CONTINENT OF BOWEL AND BLADDER FUNCTION. VERBAL, SYRIAC SPEAKING. UNDERSTANDS A LITTLE GREENLANDIC. IV ACCESS PATENT AND INTACT NO REDNESS OR INFILTRATION NOTED. PT INFORMED TO CALL WHEN ASSISTANCE IS NEEDED KEPT CLEAN AND DRY WILL CONTINUE TO MONITOR
[2018-04-17 07:34] LABS: BASOPHILS # (AUTO) 0.1 /CMM (0.0-0.2); BASOPHILS % (AUTO) 1.3 % (0.0-2.0); EOSINOPHILS % (AUTO) 2.8 % (0.0-6.0); HEMATOCRIT 28 % (33-45); HEMOGLOBIN 9.4 g/dL (11.5-14.8); LYMPHOCYTES # (AUTO) 2.6 /CMM (0.8-4.8); MEAN CORPUSCULAR HGB CONC 33 g/dl (31.0-36.0); MEAN CORPUSCULAR VOLUME 90 fL (82-100); MONOCYTES # (AUTO) 0.4 /CMM (0.1-1.30); MONOCYTES % (AUTO) 6.9 % (2.0-12.0); NEUTROPHILS # (AUTO) 2.8 /CMM (1.8-8.9); PLATELET COUNT (AUTO) 210 /CMM (150-450); RED BLOOD CELL COUNT(AUTO) 3.12 MIL/uL (4.0-5.2); WHITE BLOOD COUNT (AUTO) 6.1 K/uL (4.3-11.0)
[2018-04-17 07:52] LABS: CALCIUM, SERUM 8.7 mg/dL (8.5-10.1); CREATININE 1.8 mg/dL (0.6-1.3); PHOSPHORUS 4.9 mg/dL (2.5-4.9); POTASSIUM 4.6 mmol/L (3.5-5.1)
[2018-04-17 08:00] VITALS: BP 151/75
[2018-04-17] MEDS ORDERED: AMLODIPINE BESYLATE 5 MG TABLET PO SCH (08:00)
[2018-04-17] MEDS: BLOOD SUGAR DIAGNOSTIC 1 EACH STRIP IN SCH ×2 (08:31→12:09)
[2018-04-17] MEDS: ASPIRIN 81 MG TAB.CHEW PO SCH (08:32)
[2018-04-17] MEDS: QUETIAPINE FUMARATE 25 MG TABLET PO SCH (08:32)
[2018-04-17] MEDS: MULTIVIT W/MINERALS 1 TAB TABLET PO SCH (08:32)
[2018-04-17] MEDS: FERROUS SULFATE (325 MG) 325 MG/TAB TABLET PO SCH ×2 (08:32→12:09)
[2018-04-17] MEDS: buPROPion 75 MG TABLET PO SCH (08:32)
[2018-04-17] MEDS: BISACODYL (5 MG) 5 MG TABLET.DR PO SCH (08:32)
[2018-04-17] MEDS: PANTOPRAZOLE 40 MG TABLET.DR PO SCH (08:32)
[2018-04-17] MEDS: BENZTROPINE MESYLATE (1 MG) 1 MG TABLET PO SCH (08:32)
[2018-04-17] MEDS: ASCORBIC ACID 500 MG TABLET PO SCH (08:32)
[2018-04-17] MEDS: hydrALAZINE HCL 50 MG TABLET PO SCH ×2 (08:33→12:15)
[2018-04-17] MEDS: METOPROLOL TARTRATE 50 MG TABLET PO SCH (08:33)
[2018-04-17] MEDS: INSULIN REGULAR, HUMAN 100 UNIT/ML 3 ML VIAL SQ PRN ×2 (08:37→12:14)
[2018-04-17] MEDS: HEPARIN SODIUM, PORCINE 5000 UNITS/1 ML VIAL SQ SCH (08:38)
[2018-04-17] MEDS: NITROGLYCERIN 30 GM TUBE TP SCH (10:17)
[2018-04-17 12:15] VITALS: BP 131/68
[2018-04-17] MEDS ORDERED: ASCO500T9 PO ×2 (12:34→15:54)
[2018-04-17] MEDS ORDERED: HEPA50008 SQ (12:34)
[2018-04-17] MEDS ORDERED: BUPR75TA21 PO ×2 (12:34→15:54)
[2018-04-17] MEDS ORDERED: FERR325T28 PO (12:34)
[2018-04-17] MEDS ORDERED: QUET25TA PO ×2 (12:34→15:54)
[2018-04-17] MEDS ORDERED: AMLO5TAB9 PO (12:34)
[2018-04-17] MEDS ORDERED: Multivit W/Minerals PO (12:34)
[2018-04-17] MEDS ORDERED: ASPI-1169 PO ×2 (12:34→15:54)
[2018-04-17] MEDS ORDERED: BISA5TAB10 PO ×2 (12:34→15:54)
[2018-04-17] MEDS ORDERED: BENZ1TAB7 PO ×2 (12:34→15:54)
[2018-04-17] MEDS ORDERED: PANT40TA2 PO ×2 (12:34→15:54)
[2018-04-17] MEDS ORDERED: METO50TA16 PO (12:34)
[2018-04-17] MEDS ORDERED: ATOR10TA PO ×2 (12:34→15:54)
[2018-04-17] MEDS ORDERED: HYDR-4077 PO ×2 (12:34→15:54)
--- NOTE | 2018-04-17 15:15 | NUR ---
RN NOTES PT SEEN AND EXAMINED BY [facility] PT TO BE DISCHARGED PT VOLUNTARILY GOING TO BE ADMITTED TO [facility]. PT ALERT AND ORIENTED ABLE TO SIGN OWN PAPER WORK. AMBULATORY WITH FOUR WHEEL WALKER. CONTINENT OF BOWEL AND BLADDER FUNCTION. VERBAL, TAMAZIGHT SPEAKING. UNDERSTANDS A LITTLE GREENLANDIC. IV ACCESS PATENT AND INTACT NO REDNESS OR INFILTRATION NOTED. PT INFORMED TO CALL WHEN ASSISTANCE IS NEEDED KEPT CLEAN AND DRY WILL CONTINUE TO MONITOR, REPORT GIVEN TO GPS NURSE AND WILL TRANSFER SOON, PT REFUSING PICTURES OF SKIN AT THIS TIME
--- NOTE | 2018-04-17 15:45 | NUR ---
RN NOTES PT'S ID AND IV REMOVED, TRANSPORTED TO GPS ORDERED FOR VOLUNTARY ADMISSION, CARE ENDORSED TO GPS NURSE FOR CONTINUITY OF CARE
[2018-04-17] MEDS ORDERED: HEPA500014 SQ (15:54)
[2018-04-17] MEDS ORDERED: AMLO10TA7 PO (15:54)
[2018-04-17] MEDS ORDERED: MULT-447 PO (15:54)
[2018-04-17] MEDS ORDERED: METO25TA20 PO (15:54)
[2018-04-17] MEDS ORDERED: FERR325T23 PO (15:54)
[2018-04-20 14:17] LABS: PTH, INTACT 57 pg/mL (15-65)
== END 2018-04-17 15:22 | DRG 304 ==
LOC: ER 04:56 → TELE 07:21 → ICU 16:26 → MEDSG1 04-15 11:37
PROVIDERS: ADMIT Nurse Practitioner Acute Care; ATTEND Nurse Practitioner Acute Care
DX: I16.0 Hypertensive urgency (principal); N17.0 Acute kidney failure with tubular necrosis; G93.41 Metabolic encephalopathy; F33.3 Major depressive disorder, recurrent, severe with psychotic symptoms; D68.59 Other primary thrombophilia; I13.0 Hypertensive heart and chronic kidney disease with heart failure and stage 1 through stage 4 chronic kidney disease, or unspecified chronic kidney disease; R07.9 Chest pain, unspecified; I50.9 Heart failure, unspecified; D63.8 Anemia in other chronic diseases classified elsewhere; N18.9 Chronic kidney disease, unspecified; E78.5 Hyperlipidemia, unspecified; E66.01 Morbid (severe) obesity due to excess calories; Z68.31 Body mass index [BMI] 31.0-31.9, adult; M17.11 Unilateral primary osteoarthritis, right knee; E11.22 Type 2 diabetes mellitus with diabetic chronic kidney disease; K21.9 Gastro-esophageal reflux disease without esophagitis; Z79.4 Long term (current) use of insulin; Z79.82 Long term (current) use of aspirin; Z79.899 Other long term (current) drug therapy
CPT/HCPCS: 36415; 70450-TC; 71045-TC; 76770-TC; 80048-TC; 80053-TC; 80061-TC; 82088; 82533; 82550-TC; 82728-TC; 82962-TC; 83540-TC; 83735-TC; 83880; 83970; 84100-TC; 84155; 84165; 84244; 84439-TC; 84484-TC; 85025-TC; 85652-TC; 85730-TC; 87081-TC; 93307-TC; A9502; G0378; J0360; J1644; J1815; J2060; J2405; J2785; J3475; J3490; J7030

== ENCOUNTER 2018-04-17 15:30 | Inpatient (IN) | payer MEDICARE, MEDICAID ==
[~2018-04-17] VITALS: Ht 154.9 cm; Wt 75.3 kg
[~2018-04-17 15:30] MED LIST changes: -AMLO10TA7 PO; +AMLO5TAB9 PO; +ASCO500T9 PO; +ATOR10TA PO; +BENA20TA9 PO; +BISA-79 PO; +BISA5TAB10 PO; +BUPR75TA21 PO; +DIVA-76 PO; -DIVA-78 PO; -DOCU100C36 PO; -FENO145T PO; +FERR325T28 PO; -FURO40TA5 PO; +HEPA50008 SQ; +HYDR-4077 PO; +HYDR-4384 PO; +HYDR12.55 PO; +INSU100I26 SQ; -INSU3INS6 SQ; -METF-441 PO; -METR500T PO; +MULT-213 PO; +Multivit W/Minerals PO; -OLAN5TAB3 PO; +PANT40TA2 PO; +POTA20TA83 PO; +QUET25TA PO; +QUET50TA PO
[2018-04-17] MEDS ORDERED: METO25TA20 PO (15:54)
[2018-04-17] MEDS ORDERED: FERR325T23 PO (15:54)
[2018-04-17] MEDS ORDERED: BUPR75TA21 PO (15:54)
[2018-04-17] MEDS ORDERED: AMLO10TA7 PO (15:54)
[2018-04-17] MEDS ORDERED: HEPA500014 SQ (15:54)
[2018-04-17] MEDS ORDERED: ASCO500T9 PO (15:54)
[2018-04-17] MEDS ORDERED: ASPI-1169 PO (15:54)
[2018-04-17] MEDS ORDERED: QUET25TA PO (15:54)
[2018-04-17] MEDS ORDERED: PANT40TA2 PO (15:54)
[2018-04-17] MEDS ORDERED: HYDR-4077 PO (15:54)
[2018-04-17] MEDS ORDERED: BISA5TAB10 PO (15:54)
[2018-04-17] MEDS ORDERED: ATOR10TA PO (15:54)
[2018-04-17] MEDS ORDERED: BENZ1TAB7 PO (15:54)
[2018-04-17] MEDS ORDERED: MULT-447 PO (15:54)
[2018-04-17 16:00] VITALS: BP 154/65
--- NOTE | 2018-04-17 16:40 | NUR ---
RN-CO: ADMITTED A 67 Y/O FEMALE FROM MEDICAL FLOOR.WHO SIGNED VOLUNTARY ADMISSION TO [facility]. PATIENT STATED SHE CAN UNDERSTAND A LITTLE KAZAKH BUT WHEN INTERVIEWER ASKED HER WITHOUT AN CHIEF RADIOLOGIC TECHNOLOGIST, SHE WAS HAVING A HARD TIME EXPRESSING HERSELF. DURING FACE TO FACE ASSESSMENT, PATIENT'S AFFECT IS DEPRESSED, MALODOROUS, LOOK UNMOTIVATED TO SELF CARE. HOWEVER SHE DENIED SUICIDAL IDEATION AND AUDITORY HALLUCINATION. SHE ADMITTED SHE HAD HISTORY OF HURTING HER SELF LONG TIME AGO. SHE REFUSED TO SURRENDER HER JEWELRIES TO STAFF AND WILLING TO SIGN THE WAIVER. SHE ALSO DID NOT WANT THE STAFF TO ASSESS HER SKIN. CONTRABAND WAS TAKEN FROM HER, AND I DISCUSSED HER RIGHTS A PATIENT. DR POTTER GAVE HIS ADMITTING ORDERS.
--- NOTE | 2018-04-17 17:13 | NUR ---
DR. MAN MADE AWARE OF THE ADMISSION WITH ORDERS AND YUMIKO BENITEZ MADE AWARE OF THE ADMISSION AND INFORMED TO RECONCILE MEDS AND ORDERED MILD INSULIN SLIDING SCALE WITH REGULAR INSULIN COVERAGE.
--- NOTE | 2018-04-17 17:25 | NUR ---
RN-CO: Patient was seen and examined by Ciaran Dixon NP. Addendum: 04/17/18 at 1744 by LISSY FAY RN RN-CO: Dr Love notified, carton wrapper for the weekend. Patient noted to have tangential thoughts and little disorganized.
[2018-04-17] MEDS ORDERED: DEXTROSE 50%-WATER 50 ML DISP.SYRIN IV PRN (17:30)
[2018-04-17] MEDS: BLOOD SUGAR DIAGNOSTIC 1 EACH STRIP IN SCH ×2 (17:30→22:38)
--- NOTE | 2018-04-17 17:34 | NUR ---
CALLED THE DAUGHTER FRANTZ CELESTE AT [phone] AND LEFT A MESSAGE.
[2018-04-17] MEDS: ACETAMINOPHEN 325 MG TABLET PO PRN (19:37)
[2018-04-17 20:00] VITALS: BP 153/77
[2018-04-17] MEDS: HYDROCODONE/APAP 5/325MG 1 EACH TABLET PO PRN (21:31)
[2018-04-17] MEDS: ATORVASTATIN 10 MG TABLET PO SCH (21:31)
[2018-04-17] MEDS: HEPARIN SODIUM, PORCINE 5000 UNITS/1 ML VIAL SQ SCH (21:54)
[2018-04-17] MEDS: INSULIN REGULAR, HUMAN 100 UNIT/ML 3 ML VIAL SQ PRN (22:42)
[2018-04-17] MEDS: ZOLPIDEM TARTRATE 5 MG TABLET PO PRN (22:49)
[2018-04-17] MEDS: LORAZEPAM 0.5 MG TABLET PO PRN (23:52)
[2018-04-18 08:00] VITALS: BP 154/76
--- NOTE | 2018-04-18 08:00 | NUR ---
GPS RN NOTE: BLOOD SUGAR CHECK = 170, 3 UNITS OF INSULIN GIVEN ORDERED, NO S/S OF HYPOGLYCEMIA AND HYPERGLYCEMIA. WILL CONTINUE TO MONITOR [id number] FOR SAFETY
[2018-04-18] MEDS: BLOOD SUGAR DIAGNOSTIC 1 EACH STRIP IN SCH ×4 (08:34→21:22)
[2018-04-18] MEDS: ASCORBIC ACID 500 MG TABLET PO SCH (08:35)
[2018-04-18] MEDS: ASPIRIN 81 MG TAB.CHEW PO SCH (08:35)
[2018-04-18] MEDS: FERROUS SULFATE (325 MG) 325 MG/TAB TABLET PO SCH ×3 (08:36→16:54)
[2018-04-18] MEDS: PANTOPRAZOLE 40 MG TABLET.DR PO SCH (08:36)
[2018-04-18] MEDS: hydrALAZINE HCL 50 MG TABLET PO SCH ×3 (08:37→16:56)
[2018-04-18] MEDS: METOPROLOL TARTRATE 25 MG TABLET PO SCH ×2 (08:38→16:57)
[2018-04-18] MEDS: MULTIVITAMINS,THERAGRAN 1 UDTAB TABLET PO SCH (08:38)
[2018-04-18 08:43] LABS: ALBUMIN 3.4 g/dL (3.4-5.0); BILIRUBIN,TOTAL 0.3 mg/dL (0.2-1.0); CREATININE 1.7 mg/dL (0.6-1.3); POTASSIUM 4.3 mmol/L (3.5-5.1); TOTAL PROTEIN, SERUM 8.1 g/dL (6.4-8.2)
[2018-04-18] MEDS: HEPARIN SODIUM, PORCINE 5000 UNITS/1 ML VIAL SQ SCH ×2 (08:43→21:25)
[2018-04-18] MEDS: BISACODYL (5 MG) 5 MG TABLET.DR PO SCH ×2 (08:44→16:55)
[2018-04-18 08:46] LABS: CHOLESTEROL 135 mg/dL (<200); HDL CHOLESTEROL 41 mg/dL (40-60); LDL 46 mg/dL (0-99); TRIGLYCERIDES 383 mg/dL (30-150)
[2018-04-18] MEDS: INSULIN REGULAR, HUMAN 100 UNIT/ML 3 ML VIAL SQ PRN ×4 (08:50→21:28)
[2018-04-18] MEDS ORDERED: AMLODIPINE BESYLATE 10 MG TABLET PO SCH (09:00)
--- NOTE | 2018-04-18 12:07 | NUR ---
GPS RN NOTE: PATIENT BS = 157, 2 UNITS INSULIN GIVEN ORDERED, NO S/S OF HYPOGLYCEMIA/HYPERGLYCEMIA, WILL CONTINUE TO MONITOR [id number] FOR SAFETY
[2018-04-18] MEDS: BUPROPION XL 150 MG TAB.ER.24 PO SCH (12:48)
[2018-04-18] MEDS: QUETIAPINE FUMARATE 25 MG TABLET PO SCH ×3 (13:14→21:24)
[2018-04-18] MEDS: MAG HYDROX/AL HYDROX/SIMETH 30 ML UDC PO PRN (13:48)
[2018-04-18 16:00] VITALS: BP 140/54
--- NOTE | 2018-04-18 16:00 | NUR ---
GPS RN NOTE LEFT MESSAGE TO FRANTZ CELESTE ABOUT THE PATIENT, NO CALL BACK RECEIVED. WILL CONTINUE TO FOLLOW UP
[2018-04-18 20:00] VITALS: BP 143/69
[2018-04-18 20:07] VITALS: BP 143/69
[2018-04-18] MEDS: DIVALPROEX SODIUM 250 MG TABLET.DR PO SCH (21:23)
[2018-04-18] MEDS: ATORVASTATIN 10 MG TABLET PO SCH (21:24)
[2018-04-18] MEDS: ZOLPIDEM TARTRATE 5 MG TABLET PO PRN (23:45)
--- NOTE | 2018-04-18 23:47 | NUR ---
RN GPS NOTES PATIENT UNABLE TO SLEEP, REQUESTING FOR SLEEP AID, PORFIRIOIEN PRN GIVEN. WILL CONTINUE TO MONITOR
[2018-04-19 08:00] VITALS: BP 150/58
[2018-04-19] MEDS: BLOOD SUGAR DIAGNOSTIC 1 EACH STRIP IN SCH ×4 (08:46→21:13)
[2018-04-19] MEDS: ASCORBIC ACID 500 MG TABLET PO SCH (08:46)
[2018-04-19] MEDS: BUPROPION XL 150 MG TAB.ER.24 PO SCH (08:47)
[2018-04-19] MEDS: QUETIAPINE FUMARATE 25 MG TABLET PO SCH ×4 (08:47→21:10)
[2018-04-19] MEDS: BISACODYL (5 MG) 5 MG TABLET.DR PO SCH ×2 (08:47→17:05)
[2018-04-19] MEDS: PANTOPRAZOLE 40 MG TABLET.DR PO SCH (08:47)
[2018-04-19] MEDS: ASPIRIN 81 MG TAB.CHEW PO SCH (08:48)
[2018-04-19] MEDS: hydrALAZINE HCL 50 MG TABLET PO SCH ×3 (08:48→17:06)
[2018-04-19] MEDS: MULTIVITAMINS,THERAGRAN 1 UDTAB TABLET PO SCH (08:48)
[2018-04-19] MEDS: METOPROLOL TARTRATE 25 MG TABLET PO SCH ×2 (08:49→17:07)
[2018-04-19] MEDS: INSULIN REGULAR, HUMAN 100 UNIT/ML 3 ML VIAL SQ PRN ×4 (08:57→21:17)
[2018-04-19] MEDS: HEPARIN SODIUM, PORCINE 5000 UNITS/1 ML VIAL SQ SCH ×2 (08:58→21:18)
[2018-04-19] MEDS: FERROUS SULFATE (325 MG) 325 MG/TAB TABLET PO SCH ×3 (09:01→17:06)
[2018-04-19] MEDS: AMLODIPINE BESYLATE 10 MG TABLET PO SCH (09:03)
--- NOTE | 2018-04-19 11:36 | NUR ---
WOUND CARE CONSULT WOUND CARE RECEIVED CONSULT FOR WOUND ON LOWER ABDOMINAL AREA. WOUND CARE WILL DEFER CONSULT AND ALL TREATMENT PLANS TO PLASTIC SURGICAL TEAM. PLASTIC SURGICAL TEAM HAS BEEN NOTIFIED. PATIENT WITH MONA AT 20. WILL SEE PRN.
--- NOTE | 2018-04-19 11:42 | NUR ---
CHANEL received a phone call from pts maddie Yovany (did not provide SW with a phone number and stated he did not know it) to provided SW with a brochure for new placement for pt. He stated he wanted pt placed at [facility]. CHANEL will contact facility for referral process.
--- NOTE | 2018-04-19 14:20 | NUR ---
SW contacted pts daughter Anila [phone] and discussed discharge plan. Daughter stated that pt does not want to return to the [facility] due to pt not liking the staff. SW informed her that pts Son Yovany came to drop off a brochure for the [facility], Daughter stated she would like pt to live there and also stated that pts budget is $1100. Daughter stated that if [facility] did not work the SW would be able to find a board and care that fits pts needs and budget.
--- NOTE | 2018-04-19 14:42 | NUR ---
SW contacted [facility] Address: [id number] [place] [address] and spoke with Franca, facility administrator who stated their shared room start at $1800/month.
--- NOTE | 2018-04-19 15:27 | NUR ---
INITIAL DISCHARGE PLAN: Per daughter Anila [phone], pt needs board and care placement. SW will help form a safe and proper discharge in collaboration with daughter and MD.
[2018-04-19] MEDS: HYDROCODONE/APAP 5/325MG 1 EACH TABLET PO PRN (15:34)
[2018-04-19 16:00] VITALS: BP 131/69
[2018-04-19 20:04] VITALS: BP 142/71
[2018-04-19] MEDS: MUPIROCIN OINT 2% 22 GM TUBE SCH (21:00)
[2018-04-19] MEDS: ATORVASTATIN 10 MG TABLET PO SCH (21:09)
[2018-04-19] MEDS: DIVALPROEX SODIUM 250 MG TABLET.DR PO SCH (21:09)
[2018-04-19] MEDS: ZOLPIDEM TARTRATE 5 MG TABLET PO PRN (22:56)
[2018-04-20] MEDS: LORAZEPAM 0.5 MG TABLET PO PRN (03:32)
[2018-04-20] MEDS: BLOOD SUGAR DIAGNOSTIC 1 EACH STRIP IN SCH ×4 (07:30→21:37)
[2018-04-20 07:34] LABS: BASOPHILS # (AUTO) 0.1 /CMM (0.0-0.2); BASOPHILS % (AUTO) 1.6 % (0.0-2.0); EOSINOPHILS % (AUTO) 4.1 % (0.0-6.0); HEMATOCRIT 31 % (33-45); HEMOGLOBIN 10.1 g/dL (11.5-14.8); LYMPHOCYTES # (AUTO) 2.5 /CMM (0.8-4.8); LYMPHOCYTES % (AUTO) 41.6 % (20.0-44.0); MEAN CORPUSCULAR HGB CONC 32 g/dl (31.0-36.0); MEAN CORPUSCULAR VOLUME 91 fL (82-100); MONOCYTES # (AUTO) 0.4 /CMM (0.1-1.30); MONOCYTES % (AUTO) 6.5 % (2.0-12.0); NEUTROPHILS # (AUTO) 2.8 /CMM (1.8-8.9); NEUTROPHILS % (AUTO) 46.2 % (43.0-81.0); PLATELET COUNT (AUTO) 232 /CMM (150-450); RED BLOOD CELL COUNT(AUTO) 3.42 MIL/uL (4.0-5.2); WHITE BLOOD COUNT (AUTO) 5.9 K/uL (4.3-11.0)
[2018-04-20 08:00] VITALS: BP 150/68
[2018-04-20 08:05] LABS: ALBUMIN 3.2 g/dL (3.4-5.0); BILIRUBIN,TOTAL 0.3 mg/dL (0.2-1.0); CALCIUM, SERUM 9.1 mg/dL (8.5-10.1); CREATININE 1.7 mg/dL (0.6-1.3); POTASSIUM 4.5 mmol/L (3.5-5.1); TOTAL PROTEIN, SERUM 7.5 g/dL (6.4-8.2)
--- NOTE | 2018-04-20 08:23 | NUR ---
SW contacted Rik, data review specialist at [facility] care advisory service [phone] and faxed face sheet to help assist find board and care placement for pt.
[2018-04-20] MEDS: MUPIROCIN OINT 2% 22 GM TUBE SCH ×2 (09:00→21:37)
[2018-04-20] MEDS: HEPARIN SODIUM, PORCINE 5000 UNITS/1 ML VIAL SQ SCH ×2 (09:00→21:00)
[2018-04-20] MEDS: INSULIN REGULAR, HUMAN 100 UNIT/ML 3 ML VIAL SQ PRN ×4 (10:16→21:41)
[2018-04-20] MEDS: BUPROPION XL 150 MG TAB.ER.24 PO SCH (10:17)
[2018-04-20] MEDS: MULTIVITAMINS,THERAGRAN 1 UDTAB TABLET PO SCH (10:17)
[2018-04-20] MEDS: BISACODYL (5 MG) 5 MG TABLET.DR PO SCH ×2 (10:17→17:31)
[2018-04-20] MEDS: ASCORBIC ACID 500 MG TABLET PO SCH (10:17)
[2018-04-20] MEDS: PANTOPRAZOLE 40 MG TABLET.DR PO SCH (10:17)
[2018-04-20] MEDS: AMLODIPINE BESYLATE 10 MG TABLET PO SCH (10:18)
[2018-04-20] MEDS: FERROUS SULFATE (325 MG) 325 MG/TAB TABLET PO SCH ×3 (10:19→17:31)
[2018-04-20] MEDS: METOPROLOL TARTRATE 25 MG TABLET PO SCH ×2 (10:19→17:30)
[2018-04-20] MEDS: hydrALAZINE HCL 50 MG TABLET PO SCH ×3 (10:19→17:30)
[2018-04-20] MEDS: ASPIRIN 81 MG TAB.CHEW PO SCH (10:19)
[2018-04-20] MEDS: QUETIAPINE FUMARATE 25 MG TABLET PO SCH ×4 (10:20→21:37)
[2018-04-20 16:00] VITALS: BP 152/65
[2018-04-20 21:31] VITALS: BP 147/58
[2018-04-20] MEDS: ATORVASTATIN 10 MG TABLET PO SCH (21:36)
[2018-04-20] MEDS: DIVALPROEX SODIUM 250 MG TABLET.DR PO SCH (21:37)
[2018-04-20] MEDS: ZOLPIDEM TARTRATE 5 MG TABLET PO PRN (23:02)
[2018-04-21] MEDS: HYDROCODONE/APAP 5/325MG 1 EACH TABLET PO PRN (01:11)
[2018-04-21 07:11] LABS: BASOPHILS # (AUTO) 0.1 /CMM (0.0-0.2); BASOPHILS % (AUTO) 1.6 % (0.0-2.0); EOSINOPHILS % (AUTO) 3.5 % (0.0-6.0); HEMATOCRIT 32 % (33-45); HEMOGLOBIN 10.4 g/dL (11.5-14.8); LYMPHOCYTES # (AUTO) 2.6 /CMM (0.8-4.8); MEAN CORPUSCULAR HGB CONC 33 g/dl (31.0-36.0); MEAN CORPUSCULAR VOLUME 90 fL (82-100); MONOCYTES # (AUTO) 0.4 /CMM (0.1-1.30); MONOCYTES % (AUTO) 5.6 % (2.0-12.0); NEUTROPHILS # (AUTO) 3.1 /CMM (1.8-8.9); NEUTROPHILS % (AUTO) 48.3 % (43.0-81.0); PLATELET COUNT (AUTO) 275 /CMM (150-450); RED BLOOD CELL COUNT(AUTO) 3.51 MIL/uL (4.0-5.2); WHITE BLOOD COUNT (AUTO) 6.4 K/uL (4.3-11.0)
[2018-04-21] MEDS: BLOOD SUGAR DIAGNOSTIC 1 EACH STRIP IN SCH ×4 (07:30→22:00)
[2018-04-21] MEDS: PANTOPRAZOLE 40 MG TABLET.DR PO SCH (07:30)
[2018-04-21 07:56] LABS: CALCIUM, SERUM 9.3 mg/dL (8.5-10.1); CREATININE 1.8 mg/dL (0.6-1.3); PHOSPHORUS 4.6 mg/dL (2.5-4.9); POTASSIUM 4.8 mmol/L (3.5-5.1)
[2018-04-21 08:00] VITALS: BP 169/85
--- NOTE | 2018-04-21 08:25 | NUR ---
CHANEL contacted pts daughter Anila [phone] and informed her Rik from [facility] is waiting for her to call her back to discuss pts budget, needs, and wants. CHANEL provided Daughter with Rik's contact information. Daughter stated she would call Rik to discuss placement.
[2018-04-21] MEDS: ASPIRIN 81 MG TAB.CHEW PO SCH (09:00)
[2018-04-21] MEDS: METOPROLOL TARTRATE 25 MG TABLET PO SCH ×2 (09:00→17:14)
[2018-04-21] MEDS: MUPIROCIN OINT 2% 22 GM TUBE SCH ×2 (09:00→21:00)
[2018-04-21] MEDS: BISACODYL (5 MG) 5 MG TABLET.DR PO SCH ×2 (09:00→17:00)
[2018-04-21] MEDS: HEPARIN SODIUM, PORCINE 5000 UNITS/1 ML VIAL SQ SCH ×2 (09:00→21:00)
[2018-04-21] MEDS: QUETIAPINE FUMARATE 25 MG TABLET PO SCH ×4 (09:00→22:00)
[2018-04-21] MEDS: FERROUS SULFATE (325 MG) 325 MG/TAB TABLET PO SCH ×3 (09:00→17:00)
[2018-04-21] MEDS: MULTIVITAMINS,THERAGRAN 1 UDTAB TABLET PO SCH (09:00)
[2018-04-21] MEDS: hydrALAZINE HCL 50 MG TABLET PO SCH ×3 (09:00→17:00)
[2018-04-21] MEDS: ASCORBIC ACID 500 MG TABLET PO SCH (09:00)
[2018-04-21] MEDS: AMLODIPINE BESYLATE 10 MG TABLET PO SCH (09:00)
[2018-04-21] MEDS: BUPROPION XL 150 MG TAB.ER.24 PO SCH (09:00)
--- NOTE | 2018-04-21 12:13 | NUR ---
GROUP NOTE: Topic: "what is your goal once discharged from the hospital?" S: "My children are finding a place for me." O: Pt had pressured speech and began naming all her family members and would not allow SW to redirect her. Pt interrupted another pt stating, "wait I forgot something." and began naming more family members. A: Pt was not able to focus on topic and provide appropriate feedback. P: Pt will continue milieu treatment and medication stabilization.
--- NOTE | 2018-04-21 17:59 | NUR ---
1700 PATIENT VERY AGITATED AND IRRITATED PATIENT ADAMANTLY REFUSED BLOOD SUGAR CHECK AND 1700 MEDICATIONS.
[2018-04-21] MEDS: DIVALPROEX SODIUM 250 MG TABLET.DR PO SCH (22:00)
[2018-04-21] MEDS: ATORVASTATIN 10 MG TABLET PO SCH (22:00)
[2018-04-22] MEDS: BLOOD SUGAR DIAGNOSTIC 1 EACH STRIP IN SCH ×4 (07:30→22:26)
--- NOTE | 2018-04-22 07:41 | NUR ---
GPS RN NOTE: PATIENT REFUSED ACCUCHECK, EXPLAINED THE RISK AND BENEFITS X 3 ATTEMPTS AND PATIENT STILL REFUSED. NOTIFIED FRANTZ (DAUGHTER) AND CONVINCED THE PATIENT BUT PATIENT STILL REFUSED
[2018-04-22 08:00] VITALS: BP 110/64
[2018-04-22] MEDS: PANTOPRAZOLE 40 MG TABLET.DR PO SCH (08:26)
[2018-04-22] MEDS: BISACODYL (5 MG) 5 MG TABLET.DR PO SCH ×2 (08:28→16:23)
[2018-04-22] MEDS: ASPIRIN 81 MG TAB.CHEW PO SCH (08:28)
[2018-04-22] MEDS: FERROUS SULFATE (325 MG) 325 MG/TAB TABLET PO SCH ×3 (08:28→16:23)
[2018-04-22] MEDS: ASCORBIC ACID 500 MG TABLET PO SCH (08:28)
[2018-04-22] MEDS: BUPROPION XL 150 MG TAB.ER.24 PO SCH (08:29)
[2018-04-22] MEDS: QUETIAPINE FUMARATE 25 MG TABLET PO SCH ×3 (08:29→16:23)
[2018-04-22] MEDS: MULTIVITAMINS,THERAGRAN 1 UDTAB TABLET PO SCH (08:30)
[2018-04-22] MEDS: HEPARIN SODIUM, PORCINE 5000 UNITS/1 ML VIAL SQ SCH ×2 (08:38→21:17)
--- NOTE | 2018-04-22 08:45 | NUR ---
CHANEL contacted pts daughter Anila [phone] and informed her that pt is refusing meds on this present day. Daughter informed SW that she is having a hard time finding a board and care that matches her budget and liking and she also stated that she is going to apply for an assisted living waiver for pt. SW informed her that she would be able to place pt at a [place] [facility] home short term. Daughter agreed and stated that would be the best option at this time.
[2018-04-22] MEDS: MUPIROCIN OINT 2% 22 GM TUBE SCH ×2 (08:46→21:19)
[2018-04-22] MEDS: AMLODIPINE BESYLATE 10 MG TABLET PO SCH (08:47)
[2018-04-22] MEDS: hydrALAZINE HCL 50 MG TABLET PO SCH ×3 (08:47→16:23)
[2018-04-22] MEDS: METOPROLOL TARTRATE 25 MG TABLET PO SCH ×2 (08:47→16:23)
--- NOTE | 2018-04-22 09:18 | NUR ---
GPS RN NOTE: PATIENT SELECTIVE WITH MEDS, REFUSED ACCUCHECK AND HEPARIN, EXPLAINED THE RISK AND BENEFITS X 3 ATTEMPTS BUT PATIENT STILL REFUSED, BP MEDS HELD D/T LOW BLOOD PRESSURE. WILL CONTNUE TO MONITOR [id number] FOR SAFETY
[2018-04-22] MEDS: INSULIN REGULAR, HUMAN 100 UNIT/ML 3 ML VIAL SQ PRN ×3 (11:33→22:28)
[2018-04-22] MEDS: MAG HYDROX/AL HYDROX/SIMETH 30 ML UDC PO PRN (12:04)
[2018-04-22] MEDS: HYDROCODONE/APAP 5/325MG 1 EACH TABLET PO PRN (12:49)
[2018-04-22 16:00] VITALS: BP 154/62
[2018-04-22 20:00] VITALS: BP 145/77
[2018-04-22] MEDS: ATORVASTATIN 10 MG TABLET PO SCH (21:15)
[2018-04-22] MEDS: DIVALPROEX SODIUM 250 MG TABLET.DR PO SCH (21:16)
[2018-04-22] MEDS: LORAZEPAM 0.5 MG TABLET PO PRN (21:16)
[2018-04-22] MEDS: ZOLPIDEM TARTRATE 5 MG TABLET PO PRN (21:16)
[2018-04-22] MEDS ORDERED: QUETIAPINE FUMARATE 100 MG TABLET PO SCH (22:00)
[2018-04-23 08:00] VITALS: BP 155/75
[2018-04-23] MEDS: BLOOD SUGAR DIAGNOSTIC 1 EACH STRIP IN SCH ×4 (08:42→21:14)
[2018-04-23] MEDS: INSULIN REGULAR, HUMAN 100 UNIT/ML 3 ML VIAL SQ PRN ×4 (08:43→21:18)
[2018-04-23] MEDS: ASPIRIN 81 MG TAB.CHEW PO SCH (08:55)
[2018-04-23] MEDS: ASCORBIC ACID 500 MG TABLET PO SCH (08:55)
[2018-04-23] MEDS: FERROUS SULFATE (325 MG) 325 MG/TAB TABLET PO SCH ×3 (08:55→17:52)
[2018-04-23] MEDS: BISACODYL (5 MG) 5 MG TABLET.DR PO SCH ×2 (08:56→17:53)
[2018-04-23] MEDS: MULTIVITAMINS,THERAGRAN 1 UDTAB TABLET PO SCH (08:56)
[2018-04-23] MEDS: PANTOPRAZOLE 40 MG TABLET.DR PO SCH (08:56)
[2018-04-23] MEDS: MUPIROCIN OINT 2% 22 GM TUBE SCH ×2 (08:56→21:01)
[2018-04-23] MEDS: AMLODIPINE BESYLATE 10 MG TABLET PO SCH (08:57)
[2018-04-23] MEDS: hydrALAZINE HCL 50 MG TABLET PO SCH ×3 (08:57→17:53)
[2018-04-23] MEDS: METOPROLOL TARTRATE 25 MG TABLET PO SCH ×2 (08:58→17:53)
[2018-04-23] MEDS ORDERED: QUETIAPINE FUMARATE 25 MG TABLET PO SCH (09:00)
[2018-04-23] MEDS: HEPARIN SODIUM, PORCINE 5000 UNITS/1 ML VIAL SQ SCH ×2 (09:00→21:22)
--- NOTE | 2018-04-23 09:30 | NUR ---
SW received a phone call from pts son Yovany [phone] stating that pt was only here due to her not having another place to go and her not wanting to return to the facility she was living at and that she should have been discharged a long time ago. SW informed son that pt was placed on a 5150 hold due to bizarre behavior and agitation and stated that pt currently needs psychiatric treatment,. Pts son is in denial and stated that pt does not need psychiatric treatment and that the reason she was acting that way was because the SW took too long to find her a new place to live. It appeared that son was under the influence of substances as he was slurring his words and becoming volatile. SW informed him that she would continue to communicate with pts daughter Anila and would discuss discharge plan and placement with her.
--- NOTE | 2018-04-23 10:00 | NUR ---
CHANEL contacted pts daughter Anila [phone] and left a voicemail informing her pt was placed on a 5150 hold due to bizarre behavior and agitation.
--- NOTE | 2018-04-23 15:40 | NUR ---
CHANEL faxed SNF referral to aura Simmons at [facility] Address: [address] [place] [address] for review.
[2018-04-23 16:00] VITALS: BP 113/86
--- NOTE | 2018-04-23 19:22 | NUR ---
GPS RN NOTE, RECEIVED PATIENT AWAKE AND IN BED NO S/S OR COMPLAINTS OF PAIN AT THIS TIME. PATIENT IS DISPLAYING NO S/S OF APPARENT DISTRESS AT THIS TIME. PATIENT BREATHING IS UNLABORED WITH EQUAL RISE AND FALL OF THE CHEST. PATIENT IS ALERT AND ORIENTED X 2 ON ROOM AIR WITH A SPO2 0F 95%. PATIENT IS MED SELECTIVE, DISORGANIZED, ANXIOUS, COOPERATIVE, CONFUSED AT TIME, ATTENTION SEEKING, AND NEEDS REORIENTATION. PATIENT DENIES SUICIDE AND HOMICIDAL IDEATIONS AT THIS TIME. PATIENT ASSISTED WITH TURNING AND REPOSITIONING Q2HR AND PRN FOR COMFORT AND CIRCULATION. PATIENT HAS NO NEEDS AT THIS TIME. PATIENT EDUCATED ON THE USE OF THE CALL CARVAJAL. PATIENT BED SIDE RAILS ARE UP X 2 FOR SAFETY, BED IS LOCKED AND LOW. WILL CONTINUE TO MONITOR AND MAINTAIN SAFETY Q15 MIN WITH THE HELP OF STAFF.
[2018-04-23] MEDS: MAGNESIUM HYDROXIDE 30 ML UDC PO PRN (20:38)
--- NOTE | 2018-04-23 20:38 | NUR ---
GPS RN NOTE, PATIENT HAS A COMPLAINT OF FEELING CONSTIPATION AND IS REQUESTING MILK OF MAGNESIA AT THIS TIME. PATIENT VITAL SIGNS ARE STABLE. GAVE MOM 30 ML PO Q12HR PRN ORDERED. WILL REASSESS FOR CONSTIPATION AND I WILL CONTINUE TO MONITOR THIS PATIENT.
[2018-04-23] MEDS: ACETAMINOPHEN 325 MG TABLET PO PRN (20:41)
--- NOTE | 2018-04-23 20:41 | NUR ---
GPS RN NOTE, PATIENT HAS A COMPLAINT OF A HEAD ACHE AT 2 OUT 10 ON THE PAIN SCALE AND IS REQUESTING TYLENOL AT THIS TIME. PATIENT VITAL SIGNS ARE STABLE. GAVE TYLENOL 650 MG PO Q6HR PRN ORDERED. WILL REASSESS PAIN AND I WILL CONTINUE TO MONITOR THIS PATIENT.
--- NOTE | 2018-04-23 21:14 | NUR ---
GPS RN NOTE, PERFORMED ACCU CHECK ON PATIENT WITH A BLOOD SUGAR RESULT OF 153. GAVE 2 UNITS OF REGULAR INSULIN PER SLIDING SCALE. WILL CONTINUE TO MONITOR THIS PATIENT.
[2018-04-23] MEDS: ATORVASTATIN 10 MG TABLET PO SCH (21:19)
[2018-04-23] MEDS: QUETIAPINE FUMARATE 100 MG TABLET PO SCH (21:19)
[2018-04-23] MEDS: DIVALPROEX SODIUM 250 MG TABLET.DR PO SCH (21:20)
[2018-04-23 22:00] VITALS: BP 146/69
--- NOTE | 2018-04-23 22:00 | NUR ---
GPS RN NOTE, PATIENT TRANSFERRED TO ROOM 307 BED 2 IN STABLE CONDITION. REPORT GIVEN TO PM NURSE, SITTER AT BEDSIDE FOR SAFETY.
--- NOTE | 2018-04-23 22:00 | NUR ---
GPS/RN OVERFLOW NOTES PT RECEIVED FROM Alexandria HOLLINS/STEPHON2-3. BELIZEAN/SAO TOMEAN SPEAKING. ON ROOM AIR, BREATHING EVEN AND UNLABORED. DENIES SOB AND PAIN. ORIENTED PT TO ROOM AND CALL LIGHT. SITTER AT BEDSIDE. NO IV ACCESS PER PROTOCOL. ABLE TO MAKE NEEDS KNOWN. BED IN LOW/LOCKED POSITION WITH HOB ELEVATED AND BILATERAL UPPER SIDE RAILS IN PLACE. WILL CONTINUE TO MONITOR
[2018-04-24] VITALS: BP 146/69
[2018-04-24] MEDS: HYDROCODONE/APAP 5/325MG 1 EACH TABLET PO PRN ×2 (03:27→12:09)
--- NOTE | 2018-04-24 03:31 | NUR ---
RN NOTES PT C/O 09/01 BILATERAL LOWER EXTREMITY PAIN. ADMINISTERED PRN NORCO ORDERED.
[2018-04-24] MEDS: BLOOD SUGAR DIAGNOSTIC 1 EACH STRIP IN SCH ×4 (06:56→21:30)
--- NOTE | 2018-04-24 07:32 | NUR ---
GPS/RN OVERFLOW CLOSING NOTES PT WITH EYES CLOSED, COMFORTABLY IN BED. OPENS EYES TO NAME. A/OX2, CONFUSED. [place] LUCIAN SPEAKING, SOME ALBANIAN. ABLE TO MAKE NEEDS KNOWN. BREATHING EVEN AND UNLABORED. NO S/S OF SOB OR PAIN. NO IV ACCESS PER PROTOCOL. SLEPT FOR APPROX 2-3 HOURS. NO SIGNIFICANT CHANGES OVERNIGHT. ALL NEEDS MET. BED IN LOW/LOCKED POSITION WITH CALL LIGHT IN REACH, BILATERAL UPPER SIDE RAILS IN PLACE. HOB ELEVATED. SITTER AT BEDSIDE. ENDORSED TO DAY SHIFT RN JOSE GUADALUPE.
--- NOTE | 2018-04-24 07:36 | NUR ---
GPS/RN OPENING NOTE PATIENT IN BED IN STABLE CONDITION. A/O X 2-3 WITH EPISODES OF ANXIETY AND CONFUSION. NO SIGNS OF ACUTE DISTRESS. NO COMPLAIN OF PAIN OR DISCOMFORT. 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 ON HOLD TILL 04/25/182029. 1:1 SITTER AT BEDSIDE. ALL NEEDS ATTENDED TO. CALL LIGHT WITHIN REACH. WILL CONTINUE TO MONITOR TO ENSURE SAFETY.
[2018-04-24 08:10] VITALS: BP 122/59
[2018-04-24 08:15] VITALS: BP 122/59
[2018-04-24] MEDS: ASPIRIN 81 MG TAB.CHEW PO SCH (08:41)
[2018-04-24] MEDS: MULTIVITAMINS,THERAGRAN 1 UDTAB TABLET PO SCH (08:41)
[2018-04-24] MEDS: PANTOPRAZOLE 40 MG TABLET.DR PO SCH (08:41)
[2018-04-24] MEDS: ASCORBIC ACID 500 MG TABLET PO SCH (08:41)
[2018-04-24] MEDS: METOPROLOL TARTRATE 25 MG TABLET PO SCH ×2 (08:41→16:39)
[2018-04-24] MEDS: QUETIAPINE FUMARATE 25 MG TABLET PO SCH ×3 (08:41→16:38)
[2018-04-24] MEDS: FERROUS SULFATE (325 MG) 325 MG/TAB TABLET PO SCH ×3 (08:41→16:38)
[2018-04-24] MEDS: AMLODIPINE BESYLATE 10 MG TABLET PO SCH (08:42)
[2018-04-24] MEDS: hydrALAZINE HCL 50 MG TABLET PO SCH ×3 (08:42→16:39)
[2018-04-24] MEDS: BISACODYL (5 MG) 5 MG TABLET.DR PO SCH ×2 (08:42→16:38)
[2018-04-24] MEDS: MUPIROCIN OINT 2% 22 GM TUBE SCH ×2 (08:43→21:30)
[2018-04-24] MEDS: HEPARIN SODIUM, PORCINE 5000 UNITS/1 ML VIAL SQ SCH (08:43)
[2018-04-24] MEDS: INSULIN REGULAR, HUMAN 100 UNIT/ML 3 ML VIAL SQ PRN ×3 (12:16→21:46)
[2018-04-24 16:00] VITALS: BP 119/52
[2018-04-24] MEDS: ACETAMINOPHEN 325 MG TABLET PO PRN (16:38)
--- NOTE | 2018-04-24 18:15 | NUR ---
GPS/RN CLOSING NOTE PATIENT IN BED IN STABLE CONDITION. A/O X 2-3 WITH EPISODES OF ANXIETY. NO SIGNS OF ACUTE DISTRESS. NO COMPLAIN OF PAIN AND DISCOMFORT. ON CONTACT ISOLATION FOR MRSA NARES. 1:1 SITTER AT BEDSIDE. ALL NEEDS ATTENDED TO. CALL LIGHT WITHIN REACH. WILL ENDORSE TO NEXT SHIFT FOR CONTINUITY OF CARE.
--- NOTE | 2018-04-24 19:20 | NUR ---
MS/RN OPENING NOTES PT RECEIVED SITTING IN THE CHAIR, WATCHING TV. A/OX2. CALM AND QUIET AT THIS TIME. SITTER AT BEDSIDE. ON ROOM AIR, BREATHING EVEN AND UNLABORED. DENIES SOB AND PAIN, NO ACUTE DISTRESS. NO IV ACCESS PER PROTOCOL. ISOLATION PRECAUTIONS IMPLEMENTED FOR MRSA NARES. BED IN LOW/LOCKED POSITION WITH CALL LIGHT IN REACH. WILL CONTINUE TO MONITOR
[2018-04-24 20:00] VITALS: BP 116/59
[2018-04-24] MEDS: ATORVASTATIN 10 MG TABLET PO SCH (21:29)
[2018-04-24] MEDS: QUETIAPINE FUMARATE 100 MG TABLET PO SCH (21:29)
[2018-04-24] MEDS: DIVALPROEX SODIUM 250 MG TABLET.DR PO SCH (21:30)
[2018-04-25] MEDS: HYDROCODONE/APAP 5/325MG 1 EACH TABLET PO PRN (02:26)
[2018-04-25 06:13] LABS: BASOPHILS # (AUTO) 0.1 /CMM (0.0-0.2); BASOPHILS % (AUTO) 1.2 % (0.0-2.0); HEMATOCRIT 29 % (33-45); HEMOGLOBIN 9.9 g/dL (11.5-14.8); LYMPHOCYTES # (AUTO) 2.2 /CMM (0.8-4.8); LYMPHOCYTES % (AUTO) 45.1 % (20.0-44.0); MEAN CORPUSCULAR HGB CONC 34 g/dl (31.0-36.0); MEAN CORPUSCULAR VOLUME 91 fL (82-100); MONOCYTES # (AUTO) 0.2 /CMM (0.1-1.30); MONOCYTES % (AUTO) 4.2 % (2.0-12.0); NEUTROPHILS # (AUTO) 2.2 /CMM (1.8-8.9); NEUTROPHILS % (AUTO) 46.5 % (43.0-81.0); PLATELET COUNT (AUTO) 217 /CMM (150-450); RED BLOOD CELL COUNT(AUTO) 3.22 MIL/uL (4.0-5.2); WHITE BLOOD COUNT (AUTO) 4.8 K/uL (4.3-11.0)
[2018-04-25 06:34] LABS: BILIRUBIN,TOTAL 0.2 mg/dL (0.2-1.0); CALCIUM, SERUM 8.7 mg/dL (8.5-10.1); MAGNESIUM 2.7 mg/dL (1.8-2.4); PHOSPHORUS 4.8 mg/dL (2.5-4.9); POTASSIUM 4.9 mmol/L (3.5-5.1); TOTAL PROTEIN, SERUM 7.5 g/dL (6.4-8.2)
[2018-04-25] MEDS: BLOOD SUGAR DIAGNOSTIC 1 EACH STRIP IN SCH ×4 (06:45→23:34)
--- NOTE | 2018-04-25 06:50 | NUR ---
GPS/RN CLOSING NOTES PT AWAKE, SEMI FOWLERS IN BED. SITTER AT BEDSIDE. ON ROOM AIR, BREATHING EVEN AND UNLABORED. DENIES PAIN, NO FACIAL GRIMACING NOTED. NO S/S OF SOB. A/OX2-3. ANXIOUS, WITH EPISODES OF VISUAL HALLUCINATIONS SAYING ANIMALS ARE CRAWLING AROUND HER LEGS AND IN THE BED. REORIENTED PRN. EMOTIONAL SUPPORT PROVIDED. REMAINED CALM, COOPERATIVE AND COMPLAINT WITH CARE THROUGHOUT SHIFT. NO IV ACCESS PER PROTOCOL. SLEPT APPROX. 6 HOURS. BED REMAINS IN LOW/LOCKED POSITION WITH CALL LIGHT IN REACH. BILATERAL UPPER SIDE RAILS IN PLACE. ISOLATION PRECAUTIONS IMPLEMENTED. WILL ENDORSE TO DAY SHIFT RN JOSE GUADALUPE.
--- NOTE | 2018-04-25 07:30 | NUR ---
ms rn received on bed, awake,alert,oriented x3,not in any form of distress, respirations even and unlabored,no sob noted, lungs are clear,abdomen soft,positive bowel sounds,denies pain at this time, will monitor patient's condition.
[2018-04-25] MEDS: METOPROLOL TARTRATE 25 MG TABLET PO SCH ×2 (09:00→18:35)
[2018-04-25] MEDS: hydrALAZINE HCL 50 MG TABLET PO SCH ×3 (09:00→18:35)
--- NOTE | 2018-04-25 09:10 | NUR ---
ms rn due meds given,tolerated well.held b/p meds due to low diastolic pressure.
[2018-04-25] MEDS: QUETIAPINE FUMARATE 25 MG TABLET PO SCH ×3 (09:29→18:34)
[2018-04-25] MEDS: MULTIVITAMINS,THERAGRAN 1 UDTAB TABLET PO SCH (09:29)
[2018-04-25] MEDS: ASCORBIC ACID 500 MG TABLET PO SCH (09:29)
[2018-04-25] MEDS: ASPIRIN 81 MG TAB.CHEW PO SCH (09:29)
[2018-04-25] MEDS: FERROUS SULFATE (325 MG) 325 MG/TAB TABLET PO SCH ×3 (09:29→18:34)
[2018-04-25] MEDS: BISACODYL (5 MG) 5 MG TABLET.DR PO SCH ×2 (09:29→18:34)
[2018-04-25] MEDS: PANTOPRAZOLE 40 MG TABLET.DR PO SCH (09:31)
[2018-04-25] MEDS: AMLODIPINE BESYLATE 10 MG TABLET PO SCH (12:40)
[2018-04-25] MEDS: INSULIN REGULAR, HUMAN 100 UNIT/ML 3 ML VIAL SQ PRN ×2 (12:46→18:36)
--- NOTE | 2018-04-25 18:30 | NUR ---
ms dee bs - 189 - 3 units regular insulin given sq.
--- NOTE | 2018-04-25 18:40 | NUR ---
ms luiz hold expires dillon, called gps staff.
--- NOTE | 2018-04-25 18:56 | NUR ---
ms rn on bed, no distress noted.
--- NOTE | 2018-04-25 19:23 | NUR ---
MS/RN OPENING NOTES RECEIVED PATIENT IN BED, AWAKE, ISOLATIVE, CAN OPEN EYES WITH GOOD EYE CONTACT, REQUIRE A SITTER FOR SAFETY. RESPIRATIONS EVEN AND UNLABORED. SKIN WARM TO TOUCH. RECEIVED REPORT FROM AM RN. OFFERED FLUIDS. WILL CONTINUE TO MONITOR. ON 5150 THAT EXPIRES TONIGHT, INFORMED PSYCH WILL F/U WITH CHARGE NURSE. GPS OVER FLOW FOR MONITORING.
[2018-04-25 19:52] VITALS: BP 135/68
[2018-04-25 19:55] VITALS: BP 135/68
[2018-04-25] MEDS: MAG HYDROX/AL HYDROX/SIMETH 30 ML UDC PO PRN (20:10)
--- NOTE | 2018-04-25 21:35 | NUR ---
GPS/RN NOTES PSYCH MD COYLE WITH 5150RENUWAL FOR 14 DAYS ON BED HOLD, TO FOLLOW UP.
--- NOTE | 2018-04-25 22:10 | NUR ---
GPS/OVER FLOW MD COYLE AT BEDSIDE AND RENEWED ORDER FOR 5150 AND EXPIRES 05/09/18.
--- NOTE | 2018-04-25 22:15 | NUR ---
CLARIFICATION OF NEW ORDER 5250 14 DAYS HOLD BEGIN 04/25 TILL 05/06 BY MD COYLE.
[2018-04-25] MEDS: QUETIAPINE FUMARATE 100 MG TABLET PO SCH (23:33)
[2018-04-25] MEDS: DIVALPROEX SODIUM 250 MG TABLET.DR PO SCH (23:33)
[2018-04-25] MEDS: ATORVASTATIN 10 MG TABLET PO SCH (23:34)
--- NOTE | 2018-04-25 23:40 | NUR ---
PATIENT REFUSE TO HAVE BLOOD SUGAR CHECK AND REFUSE TO TAKE HER NIGHT MEDICATION , STATED SHE WANTS TO GO BACK TO SLEEP.
[2018-04-26] MEDS: ACETAMINOPHEN 325 MG TABLET PO PRN (02:41)
--- NOTE | 2018-04-26 02:45 | NUR ---
REQUESTED TYLENOL FOR HEADACHE BY PATIENT, ABLE TO TAKE MEDICATION WITH WATER.
[2018-04-26] MEDS: MAGNESIUM HYDROXIDE 30 ML UDC PO PRN (03:38)
--- NOTE | 2018-04-26 03:43 | NUR ---
no bm reported for the past 2 days, mom given. will monitor.
[2018-04-26] MEDS: LORAZEPAM 0.5 MG TABLET PO PRN (04:13)
--- NOTE | 2018-04-26 04:14 | NUR ---
MS/RN NOTES UNABLE TO RELAX, ANXIOUS AND INABILITY TO RELAX. ATIVAN NEEDED TO ADMINISTER. WILL MONITOR.
[2018-04-26] MEDS: BLOOD SUGAR DIAGNOSTIC 1 EACH STRIP IN SCH ×4 (05:53→21:22)
[2018-04-26] MEDS: INSULIN REGULAR, HUMAN 100 UNIT/ML 3 ML VIAL SQ PRN ×3 (06:14→21:35)
--- NOTE | 2018-04-26 06:19 | NUR ---
blood sugar check at 211, able to make needs known, cranberry juice given and sliding scale coverage 4 units administered on site.
--- NOTE | 2018-04-26 06:21 | NUR ---
307-G-2 RN NOTES PATIENT ABLE TO SLEEP ATLEAST 8 HOURS, ALERT X2, REQUIRE SITTER TO MONITOR FOR SAFETY, PATIENT NON COMPLIANT TO MEDICATION, MONITORED FOR CHANGES IN BEHAVIOR. WILL ENDORSE TO AM RN FOR JOSE GUADALUPE.
--- NOTE | 2018-04-26 08:00 | NUR ---
silvia studio operator: initial assessment received pt in bed awake, a/ox2; chadian speaking with little urdu. pt still on 5250. sitter at bedside. pt refuse full body assessment. denies si/hi at this time. will continue to monitor.
[2018-04-26] MEDS: MULTIVITAMINS,THERAGRAN 1 UDTAB TABLET PO SCH (08:50)
[2018-04-26] MEDS: ASPIRIN 81 MG TAB.CHEW PO SCH (08:50)
[2018-04-26] MEDS: BISACODYL (5 MG) 5 MG TABLET.DR PO SCH ×2 (08:50→16:53)
[2018-04-26] MEDS: QUETIAPINE FUMARATE 25 MG TABLET PO SCH ×3 (08:50→16:53)
[2018-04-26] MEDS: FERROUS SULFATE (325 MG) 325 MG/TAB TABLET PO SCH ×3 (08:50→16:53)
[2018-04-26] MEDS: ASCORBIC ACID 500 MG TABLET PO SCH (08:51)
[2018-04-26] MEDS: METOPROLOL TARTRATE 25 MG TABLET PO SCH ×2 (08:52→16:53)
[2018-04-26] MEDS: PANTOPRAZOLE 40 MG TABLET.DR PO SCH (08:53)
[2018-04-26] MEDS: AMLODIPINE BESYLATE 10 MG TABLET PO SCH (08:53)
[2018-04-26] MEDS ORDERED: SERTRALINE HCL 50 MG TABLET PO SCH (09:00)
[2018-04-26] MEDS: hydrALAZINE HCL 50 MG TABLET PO SCH ×3 (09:09→16:54)
--- NOTE | 2018-04-26 09:30 | NUR ---
silvia engineering technical writer: notes pt wants to shower, sitter to assist and take her for a shower. will continue to monitor.
--- NOTE | 2018-04-26 10:30 | NUR ---
gpssaba interactive web developer: notes son at bedside at this time.
--- NOTE | 2018-04-26 10:53 | NUR ---
aura Simmons at [facility] Address: [id number] [place] [id number] came on this present day to assess pt.
--- NOTE | 2018-04-26 10:56 | NUR ---
SW contacted pts daughter Anila [phone] and informed her aura Simmons at [facility] came to assess pt on this present day and will be giving her a call to discuss placement at their facility. Daughter agreed.
--- NOTE | 2018-04-26 11:10 | NUR ---
gpsov scalloper: psych f/u dr. lucio here and made aware re: consent needed for zoloft. per dr. lucio, will not start her on zoloft as stated.
--- NOTE | 2018-04-26 11:30 | NUR ---
gpsov statistical financial analyst: notes pt showered with supervision from design release engineer/shabbir.
--- NOTE | 2018-04-26 12:32 | NUR ---
SW received a call from aura Simmons at [facility] Address: [address] [place] [address] stating pt has been accepted to the facility and is assigned to room 409C.
--- NOTE | 2018-04-26 14:00 | NUR ---
gpsov criminal justice program director: notes pt sounds asleep at this time. sitter at bedside.
--- NOTE | 2018-04-26 18:48 | NUR ---
gps ov street car inspector: notes resting comfortable in bed with sitter at bedside. no distress noted. needs attended. will monitor.
--- NOTE | 2018-04-26 19:00 | NUR ---
gps ov blood bank specialist: notes report given to josh (rn) for continuity of care.
[2018-04-26 20:00] VITALS: BP 140/59
--- NOTE | 2018-04-26 20:00 | NUR ---
GPS/OVERFLOW RN NOTES RECEIVED PATIENT IN BED, RESTING COMFORTABLY IN BED, CAN OPEN EYES WITH GOOD EYE CONTACT, SAD AFFECT, AND RESPOND AND ABLE TO COOPERATE WITH CARE WITH EXTENSIVE ASSISTANCE FOR SAFETY , PATIENT DEPRESSED AND REQUIRE ASSISTANCE AT BEDSIDE FOR SAFETY. SKIN WARM TO TOUCH, WILL MONITOR PATIENT. REQUESTED FOR SOME SNACKS. PROVIDE AND OFFERED FLUIDS. BED LOCKED.
[2018-04-26] MEDS: ATORVASTATIN 10 MG TABLET PO SCH (21:22)
[2018-04-26] MEDS: QUETIAPINE FUMARATE 100 MG TABLET PO SCH (21:22)
[2018-04-26] MEDS: DIVALPROEX SODIUM 250 MG TABLET.DR PO SCH (21:22)
--- NOTE | 2018-04-26 21:30 | NUR ---
BLOOD SUGAR CHECK AT 209, AWAKE, ALERT, ABLE TO SWALLOW AND DRINK FLUIDS, WILL ADMINISTER SLIDING SCALE RANGE.
[2018-04-27 06:24] LABS: BASOPHILS # (AUTO) 0.1 /CMM (0.0-0.2); BASOPHILS % (AUTO) 1.9 % (0.0-2.0); EOSINOPHILS % (AUTO) 2.8 % (0.0-6.0); HEMATOCRIT 32 % (33-45); HEMOGLOBIN 10.5 g/dL (11.5-14.8); LYMPHOCYTES % (AUTO) 43.5 % (20.0-44.0); MEAN CORPUSCULAR HGB CONC 33 g/dl (31.0-36.0); MEAN CORPUSCULAR VOLUME 91 fL (82-100); MONOCYTES # (AUTO) 0.4 /CMM (0.1-1.30); MONOCYTES % (AUTO) 5.9 % (2.0-12.0); NEUTROPHILS # (AUTO) 3.1 /CMM (1.8-8.9); NEUTROPHILS % (AUTO) 45.9 % (43.0-81.0); PLATELET COUNT (AUTO) 275 /CMM (150-450); RED BLOOD CELL COUNT(AUTO) 3.52 MIL/uL (4.0-5.2); WHITE BLOOD COUNT (AUTO) 6.9 K/uL (4.3-11.0)
[2018-04-27] MEDS: BLOOD SUGAR DIAGNOSTIC 1 EACH STRIP IN SCH ×4 (06:34→21:52)
--- NOTE | 2018-04-27 06:38 | NUR ---
BLOOD SUGAR CHECK RESULT 255, PATIENT WITH BEHAVIOR , IMPULSIVE, REFUSE TO HAVE SLIDING SCALE INSULIN , PATIENT ATE SNACKS.BEFORE BLOOD SUGAR CHECK.
[2018-04-27 06:46] LABS: CALCIUM, SERUM 9.4 mg/dL (8.5-10.1); CREATININE 1.7 mg/dL (0.6-1.3); MAGNESIUM 2.6 mg/dL (1.8-2.4); PHOSPHORUS 3.9 mg/dL (2.5-4.9); POTASSIUM 6.1 mmol/L (3.5-5.1)
--- NOTE | 2018-04-27 06:51 | NUR ---
307/G/2RN NOTES PATIETN WITH BEHAVIOR, DISTANT AND WITHRAWN , DEPRESSED, AWAKE, SLEPT INTERMITENTLY, CAN COOPERATE TO CARE, COMPLIANT WITH MEDICATION. WITH SITTER. BED LOCKED, MONITORED FOR ANY S/S OF HYPO/HYPERGLYCEMIA AND BEHAVIOR CHANGES.BED LOCKED.
--- NOTE | 2018-04-27 07:30 | NUR ---
MS RN RECEIVED ON BED, AWAKE,ALERT,ORIENTED X2 NOT IN ANY FORM OF DISTRESS, RESPIRATIONS EVEN AND UNLABORED,NO SOB NOTED, LUNGS ARE CLEAR,ABDOMEN SOFT,POSITIVE BOWEL SOUNDS,DENIES PAIN AT THIS TIME,ALL NEEDS ATTENDED.
--- NOTE | 2018-04-27 08:30 | NUR ---
ms rn breakfast served, tolerated well, refused to take meds and care, agitated w/ sitter.
[2018-04-27] MEDS: hydrALAZINE HCL 50 MG TABLET PO SCH ×4 (09:00→17:00)
[2018-04-27] MEDS: METOPROLOL TARTRATE 25 MG TABLET PO SCH ×3 (09:00→17:00)
[2018-04-27] MEDS: AMLODIPINE BESYLATE 10 MG TABLET PO SCH (09:00)
[2018-04-27] MEDS: MULTIVITAMINS,THERAGRAN 1 UDTAB TABLET PO SCH (09:11)
[2018-04-27] MEDS: BISACODYL (5 MG) 5 MG TABLET.DR PO SCH ×3 (09:11→17:00)
[2018-04-27] MEDS: ASPIRIN 81 MG TAB.CHEW PO SCH (09:11)
[2018-04-27] MEDS: ASCORBIC ACID 500 MG TABLET PO SCH (09:11)
[2018-04-27] MEDS: QUETIAPINE FUMARATE 25 MG TABLET PO SCH ×4 (09:11→17:00)
[2018-04-27] MEDS: FERROUS SULFATE (325 MG) 325 MG/TAB TABLET PO SCH ×4 (09:11→17:00)
[2018-04-27] MEDS: PANTOPRAZOLE 40 MG TABLET.DR PO SCH (09:16)
--- NOTE | 2018-04-27 10:00 | NUR ---
ms rn was seen by isiah sommer/ orders made and carried out but refused by patient.
[2018-04-27] MEDS ORDERED: FUROSEMIDE 40 MG TABLET PO ONE (11:30)
[2018-04-27] MEDS ORDERED: SODIUM POLYSTYRENE SULFONATE 15 G/60 ML BOTTLE PO ONE (11:30)
--- NOTE | 2018-04-27 11:30 | NUR ---
ms rn was seen by dr. lucio w/ orders made and carried out.
--- NOTE | 2018-04-27 11:49 | NUR ---
RT RT WENT TO PATIENT ROOM. PATIENT AGITATED AND WOULD NOT LET ANYONE TOUCH HER. EKG COULD NOT BE DONE. RN NOTIFIED.
--- NOTE | 2018-04-27 12:00 | NUR ---
ms rn patient refused to take blood sugar check, will notify .
--- NOTE | 2018-04-27 12:30 | NUR ---
ms rn patient refused due meds.
[2018-04-27] MEDS: DIVALPROEX SODIUM 250 MG TABLET.DR PO SCH ×2 (13:00→21:41)
--- NOTE | 2018-04-27 15:00 | NUR ---
ms rn patient transferred to [facility] w/ orders.
[2018-04-27 16:00] VITALS: BP 162/83
--- NOTE | 2018-04-27 17:35 | NUR ---
PT REFUSED ACCUCHECK AND ALL ORAL PM MEDS INSPITE OF EXPLAINING ITS RISKS AND BENEFITS. MADE SEVERAL ATTEMPTS AND PT INSISTS TO REFUSE.
--- NOTE | 2018-04-27 17:36 | NUR ---
DISCARD ALL PM PO MEDS IN THE MEDICINE DISPENSER WITNESSED BY CO RN GPS CHARGE NURSE.
[2018-04-27] MEDS: QUETIAPINE FUMARATE 100 MG TABLET PO SCH ×2 (20:21→22:00)
--- NOTE | 2018-04-27 20:21 | NUR ---
GPS RN NOTES: SEROQUEL 200 MG PO SCHEDULE WAS AT 2199 , BUT GIVEN AT SEROQUEL 200 MG PO AT 2020
--- NOTE | 2018-04-27 20:22 | NUR ---
GPS RN NOTES: PT. DAUGHTER REQUEST TO NIGHT MEDS GIVE EARLY , SEROQUEL 200 MG PO SCHEDULE WAS AT 0 , BUT GIVEN AT SEROQUEL 200 MG PO AT 2020, PER PT. DAUGHTER REQUEST ,AND PT. TOOK ALL NIGHT SCHEDULE MEDS WITH HER DAUGHTER ENCOURAGEMENT.
[2018-04-27 20:35] VITALS: BP 137/67
[2018-04-27] MEDS: ATORVASTATIN 10 MG TABLET PO SCH (21:42)
[2018-04-27] MEDS: INSULIN REGULAR, HUMAN 100 UNIT/ML 3 ML VIAL SQ PRN (21:56)
[2018-04-27] MEDS ORDERED: QUETIAPINE FUMARATE 100 MG TABLET PO SCH (22:00)
[2018-04-28] MEDS: LORAZEPAM 0.5 MG TABLET PO PRN (00:02)
[2018-04-28 08:00] VITALS: BP 143/72
[2018-04-28] MEDS: BLOOD SUGAR DIAGNOSTIC 1 EACH STRIP IN SCH ×4 (08:12→22:00)
[2018-04-28] MEDS: INSULIN REGULAR, HUMAN 100 UNIT/ML 3 ML VIAL SQ PRN ×4 (08:18→23:17)
[2018-04-28] MEDS: ASCORBIC ACID 500 MG TABLET PO SCH (08:37)
[2018-04-28] MEDS: DIVALPROEX SODIUM 250 MG TABLET.DR PO SCH ×2 (08:37→21:33)
[2018-04-28] MEDS: BISACODYL (5 MG) 5 MG TABLET.DR PO SCH ×2 (08:38→17:37)
[2018-04-28] MEDS: MULTIVITAMINS,THERAGRAN 1 UDTAB TABLET PO SCH (08:38)
[2018-04-28] MEDS: ASPIRIN 81 MG TAB.CHEW PO SCH (08:38)
[2018-04-28] MEDS: QUETIAPINE FUMARATE 25 MG TABLET PO SCH ×3 (08:38→17:40)
[2018-04-28] MEDS: PANTOPRAZOLE 40 MG TABLET.DR PO SCH (08:39)
[2018-04-28] MEDS: METOPROLOL TARTRATE 25 MG TABLET PO SCH ×2 (08:39→17:39)
[2018-04-28] MEDS: hydrALAZINE HCL 50 MG TABLET PO SCH ×3 (08:40→17:40)
[2018-04-28] MEDS: AMLODIPINE BESYLATE 10 MG TABLET PO SCH (08:41)
[2018-04-28] MEDS: FERROUS SULFATE (325 MG) 325 MG/TAB TABLET PO SCH ×3 (08:41→17:38)
--- NOTE | 2018-04-28 13:09 | NUR ---
CHANEL contacted pts daughter Anila [phone] and informed her pt will be discharged on 04/29/18 to [facility]. Daughter agreed with discharge plan.
[2018-04-28 16:00] VITALS: BP 156/72
[2018-04-28 16:09] LABS: BASOPHILS # (AUTO) 0.1 /CMM (0.0-0.2); BASOPHILS % (AUTO) 1.8 % (0.0-2.0); HEMATOCRIT 31 % (33-45); HEMOGLOBIN 10.3 g/dL (11.5-14.8); LYMPHOCYTES # (AUTO) 2.1 /CMM (0.8-4.8); LYMPHOCYTES % (AUTO) 36.3 % (20.0-44.0); MEAN CORPUSCULAR HGB CONC 33 g/dl (31.0-36.0); MEAN CORPUSCULAR VOLUME 90 fL (82-100); MONOCYTES # (AUTO) 0.3 /CMM (0.1-1.30); MONOCYTES % (AUTO) 5.1 % (2.0-12.0); NEUTROPHILS # (AUTO) 3.2 /CMM (1.8-8.9); NEUTROPHILS % (AUTO) 54.8 % (43.0-81.0); PLATELET COUNT (AUTO) 261 /CMM (150-450); RED BLOOD CELL COUNT(AUTO) 3.44 MIL/uL (4.0-5.2); WHITE BLOOD COUNT (AUTO) 5.9 K/uL (4.3-11.0)
[2018-04-28 16:19] LABS: ALBUMIN 3.5 g/dL (3.4-5.0); BILIRUBIN,TOTAL 0.3 mg/dL (0.2-1.0); CALCIUM, SERUM 9.4 mg/dL (8.5-10.1); CREATININE 1.6 mg/dL (0.6-1.3); MAGNESIUM 2.3 mg/dL (1.8-2.4); PHOSPHORUS 5.4 mg/dL (2.5-4.9); POTASSIUM 5.7 mmol/L (3.5-5.1); TOTAL PROTEIN, SERUM 8.3 g/dL (6.4-8.2)
--- NOTE | 2018-04-28 18:25 | NUR ---
GPS RN NOTES: PATIENT NOTED WITH KCL = 5.7, PHOSPORUS OF 5.4, BUN 54 AND CREATININE 1.7, LEFT MESSAGE TO DR. SENG SCHNEIDER. AWAITING CALL BACK Addendum: 04/28/18 at 1921 by ROULA TRAVIS II, RN ADDENDUM: EATING AND DRINKING 100%, V/S WNL
--- NOTE | 2018-04-28 19:21 | NUR ---
GPS RN NOTE: NO CALL BACK RECEIVED FROM DR. SENG SCHNEIDER, ENDORSED TO THE NEXT SHIFT
[2018-04-28 20:47] VITALS: BP 166/70
[2018-04-28] MEDS: QUETIAPINE FUMARATE 100 MG TABLET PO SCH (21:33)
[2018-04-28] MEDS: ATORVASTATIN 10 MG TABLET PO SCH (21:34)
[2018-04-29 07:32] LABS: BASOPHILS # (AUTO) 0.1 /CMM (0.0-0.2); BASOPHILS % (AUTO) 1.4 % (0.0-2.0); EOSINOPHILS % (AUTO) 2.9 % (0.0-6.0); HEMATOCRIT 28 % (33-45); HEMOGLOBIN 9.2 g/dL (11.5-14.8); LYMPHOCYTES # (AUTO) 2.3 /CMM (0.8-4.8); LYMPHOCYTES % (AUTO) 42.1 % (20.0-44.0); MEAN CORPUSCULAR HGB CONC 33 g/dl (31.0-36.0); MEAN CORPUSCULAR VOLUME 91 fL (82-100); MONOCYTES # (AUTO) 0.3 /CMM (0.1-1.30); MONOCYTES % (AUTO) 5.8 % (2.0-12.0); NEUTROPHILS # (AUTO) 2.6 /CMM (1.8-8.9); NEUTROPHILS % (AUTO) 47.8 % (43.0-81.0); PLATELET COUNT (AUTO) 219 /CMM (150-450); RED BLOOD CELL COUNT(AUTO) 3.05 MIL/uL (4.0-5.2); WHITE BLOOD COUNT (AUTO) 5.4 K/uL (4.3-11.0)
[2018-04-29] MEDS: BLOOD SUGAR DIAGNOSTIC 1 EACH STRIP IN SCH ×2 (07:38→12:37)
[2018-04-29 07:42] LABS: CALCIUM, SERUM 8.9 mg/dL (8.5-10.1); CREATININE 1.7 mg/dL (0.6-1.3); POTASSIUM 5.8 mmol/L (3.5-5.1)
[2018-04-29 08:00] VITALS: BP 162/77
[2018-04-29] MEDS: INSULIN REGULAR, HUMAN 100 UNIT/ML 3 ML VIAL SQ PRN ×2 (08:42→12:49)
[2018-04-29] MEDS: FERROUS SULFATE (325 MG) 325 MG/TAB TABLET PO SCH ×2 (08:45→13:18)
[2018-04-29] MEDS: hydrALAZINE HCL 50 MG TABLET PO SCH ×2 (08:46→13:18)
[2018-04-29] MEDS: QUETIAPINE FUMARATE 25 MG TABLET PO SCH ×2 (08:46→13:18)
[2018-04-29] MEDS: ASPIRIN 81 MG TAB.CHEW PO SCH (08:46)
[2018-04-29] MEDS: METOPROLOL TARTRATE 25 MG TABLET PO SCH (08:46)
[2018-04-29] MEDS: PANTOPRAZOLE 40 MG TABLET.DR PO SCH (08:46)
[2018-04-29] MEDS: MULTIVITAMINS,THERAGRAN 1 UDTAB TABLET PO SCH (08:47)
[2018-04-29] MEDS: BISACODYL (5 MG) 5 MG TABLET.DR PO SCH ×2 (08:47→08:57)
[2018-04-29] MEDS: AMLODIPINE BESYLATE 10 MG TABLET PO SCH (08:47)
[2018-04-29] MEDS: ASCORBIC ACID 500 MG TABLET PO SCH (08:47)
[2018-04-29] MEDS: DIVALPROEX SODIUM 250 MG TABLET.DR PO SCH (08:47)
--- NOTE | 2018-04-29 09:21 | NUR ---
DR. MAN GAVE AN ORDER TO D/C [facility] AND D/C TO [facility], TO CONTINUE SAME MEDS INCLUDING PRN AND TO FOLLOW UP WITH PSYCH AND MEDICAL DOCTORS. PT. WITHOUT DISTRESS, DENIES SUICIDAL AND HOMICIDAL. BELONGINGS READY. Addendum: 04/29/18 at 1200 by ROSALIA NIELSON RN PT. D/C TO [facility]
--- NOTE | 2018-04-29 11:04 | NUR ---
CHANEL received a call from aura Simmons at [facility] Address: [address] [place] [address] stating that DON is requesting nursing notes and may not accept due to pts elopement risk. SW sated that facility had already accepted pt and had been informed that pt was discharging on this present day. CHANEL informed Psychiatrist Dr. Love who decided to refer pt elsewhere.
--- NOTE | 2018-04-29 11:06 | NUR ---
CHANEL faxed SNF referral to [facility] Address: [address], [place] [address] for review.
--- NOTE | 2018-04-29 11:10 | NUR ---
CHANEL contacted pts daughter Anila [phone] and informed her [facility] is not accepting pt due to elopement risk. SW informed her that she has referred pt to a locked SNF and is waiting to hear from them. Daughter agreed.
--- NOTE | 2018-04-29 11:55 | NUR ---
CHANEL received a call from aura Farias at [facility] Address: [address] [place] [address] stating pt has been accepted to the facility. CHANEL called pts daughter Anila to inform her and she agreed with discharge plan.
[2018-04-29] MEDS ORDERED: SODIUM POLYSTYRENE SULFONATE 15 G/60 ML BOTTLE PO ONE (13:00)
[2018-04-29 13:18] VITALS: BP 136/66
--- NOTE | 2018-04-29 13:42 | NUR ---
DISCHARGE NOTE: Pt will be discharging at 3:00pm to [facility] ([facility] Address: [address] [place] [address] via [facility] ambulance trip #[id number]. Pts daughter Anila [phone] has been notified and agreed with discharge plan. Pts mood was anxious and paranoid with congruent affect. Pt denied suicidal/homicidal ideations and denied visual/auditory hallucinations. Pt will be under the care of Psychiatrist: Dr. Liv Love [address], [place] [address] [phone] and Client Development Director: Dr. Dank Muro Address: [address], [place] [address] . The multidisciplinary exitcare form was done, printed, signed, and given to the patient.
--- NOTE | 2018-04-29 13:57 | NUR ---
PONCHO BENITEZ MADE AWARE OF THE DISCHARGE AND ORDERED TO CONTINUE SAME MEDS INCLUDING PRN. ELI MADE AWARE OF THE LABS AND ORDERED KAYEXALATE 30 GM X1 AND BMP TO ELMO IN AM (04/30/18) IN THE FACILITY AND SAID OK TO DISCHARGE.
--- NOTE | 2018-04-29 14:00 | NUR ---
REPORT GIVEN TO BRI LOPEZ [facility]. Addendum: 04/29/18 at 1519 by ROSALIA NIELSON RN PICTURES GIVEN FOR THE SKIN ISSUES AND REFUSED TO SIGN THE DISCHARGE PAPERS.
--- NOTE | 2018-04-29 15:40 | NUR ---
PT. LEFT THE UNIT VIA AMBULANCE AND TRANSPORTED VIA A GURNEY WITH BELONGINGS. LEFT WITHOUT DISTRESS AND ON STABLE CONDITION. V/S TAKEN: BP 155/67, MS 78, RR 18, OXYGEN SAT 96%, TEMP 97.8.
== END 2018-04-29 15:40 | DRG 885 ==
LOC: GPS 15:30 → GPSOV 04-23 21:13 → GPS 04-27 15:25
PROVIDERS: ADMIT Psychiatry & Neurology Psychosomatic Medicine; ATTEND Psychiatry & Neurology Psychiatry
DX: F33.3 Major depressive disorder, recurrent, severe with psychotic symptoms (principal); N17.0 Acute kidney failure with tubular necrosis; N18.4 Chronic kidney disease, stage 4 (severe); E11.65 Type 2 diabetes mellitus with hyperglycemia; G93.41 Metabolic encephalopathy; D68.59 Other primary thrombophilia; S31.119A Laceration without foreign body of abdominal wall, unspecified quadrant without penetration into peritoneal cavity, initial encounter; Y93.9 Activity, unspecified; X58.XXXA Exposure to other specified factors, initial encounter; Y92.9 Unspecified place or not applicable; I12.9 Hypertensive chronic kidney disease with stage 1 through stage 4 chronic kidney disease, or unspecified chronic kidney disease; D63.8 Anemia in other chronic diseases classified elsewhere; E87.5 Hyperkalemia; E78.5 Hyperlipidemia, unspecified; E66.01 Morbid (severe) obesity due to excess calories; E11.22 Type 2 diabetes mellitus with diabetic chronic kidney disease; Z79.4 Long term (current) use of insulin; Z68.31 Body mass index [BMI] 31.0-31.9, adult; Z22.322 Carrier or suspected carrier of Methicillin resistant Staphylococcus aureus; M17.11 Unilateral primary osteoarthritis, right knee; I16.0 Hypertensive urgency; Y92.89 Other specified places as the place of occurrence of the external cause
CPT/HCPCS: 36415; 80048-TC; 80053-TC; 80061-TC; 80164-TC; 82962-TC; 83735-TC; 84100-TC; 85025-TC; 87081-TC; A6402; J1644; J1815

== ENCOUNTER 2018-11-11 15:14 | Inpatient (IN) | payer MEDICARE, MEDICAID ==
[~2018-11-11] VITALS: Ht 147.3 cm; Wt 83.9 kg
[~2018-11-11 15:14] MED LIST changes: -ACET-868 PO; +AMLO10TA7 PO; -AMLO5TAB9 PO; -ASCO-340 PO; -ATOR40TA PO; -BENA20TA9 PO; -BISA-79 PO; -CLON0.5T12 PO; -DIVA-76 PO; -FERR325T28 PO; +HEPA500014 SQ; -HEPA50008 SQ; -HYDR-4384 PO; -HYDR12.55 PO; -IBUP-1957 PO; -INSU100I26 SQ; -INSU100I4 SQ; +METO25TA20 PO; -METO50TA16 PO; -MULT-213 PO; +MULT-447 PO; -Multivit W/Minerals PO; -OMEG500C PO; -OMEP20CA10 PO; -POTA20TA83 PO; -QUET50TA PO
[2018-11-11 15:57] LABS: BASOPHILS # (AUTO) 0.1 /CMM (0.0-0.2); BASOPHILS % (AUTO) 1.6 % (0.0-2.0); EOSINOPHILS % (AUTO) 2.6 % (0.0-6.0); LYMPHOCYTES # (AUTO) 1.2 /CMM (0.8-4.8); LYMPHOCYTES % (AUTO) 21.2 % (20.0-44.0); MEAN CORPUSCULAR HGB CONC 33 g/dl (31.0-36.0); MEAN CORPUSCULAR VOLUME 87 fL (82-100); MONOCYTES # (AUTO) 0.3 /CMM (0.1-1.30); NEUTROPHILS # (AUTO) 3.9 /CMM (1.8-8.9); NEUTROPHILS % (AUTO) 68.6 % (43.0-81.0); PLATELET COUNT (AUTO) 231 /CMM (150-450); RED BLOOD CELL COUNT(AUTO) 2.34 MIL/uL (4.0-5.2); WHITE BLOOD COUNT (AUTO) 5.7 K/uL (4.3-11.0)
[2018-11-11] MEDS ORDERED: FUROSEMIDE 40 MG/4 ML VIAL IV ONE (16:00)
[2018-11-11 16:07] LABS: HEMATOCRIT 20 % (33-45); HEMOGLOBIN 6.8 g/dL (11.5-14.8)
[2018-11-11] MEDS ORDERED: INSU100V3 IJ ×2 (16:08)
[2018-11-11] MEDS ORDERED: OXCA300T15 PO (16:08)
[2018-11-11] MEDS ORDERED: LORA-259 PO (16:08)
[2018-11-11] MEDS ORDERED: BUSP5TAB3 PO (16:08)
[2018-11-11] MEDS ORDERED: INSU100V7 SQ (16:08)
[2018-11-11] MEDS ORDERED: CLON0.2T PO (16:08)
[2018-11-11] MEDS ORDERED: GABA-532 PO (16:08)
[2018-11-11] MEDS ORDERED: CHOL10002 PO (16:08)
[2018-11-11] MEDS ORDERED: FLUT9.9S NS (16:08)
[2018-11-11] MEDS ORDERED: FERR325T23 PO (16:08)
[2018-11-11] MEDS ORDERED: OMEG-167 PO (16:08)
[2018-11-11] MEDS ORDERED: FURO-145 PO (16:08)
[2018-11-11] MEDS ORDERED: EPOE4000 IJ (16:08)
[2018-11-11] MEDS ORDERED: RISP0.5T5 PO (16:08)
[2018-11-11 16:17] LABS: ALBUMIN 1.9 g/dL (3.4-5.0); BILIRUBIN,DIRECT 0.1 mg/dL (0.0-0.2); BILIRUBIN,TOTAL 0.1 mg/dL (0.2-1.0); CALCIUM, SERUM 8.2 mg/dL (8.5-10.1); CREATININE 1.7 mg/dL (0.6-1.3); TOTAL PROTEIN, SERUM 6.7 g/dL (6.4-8.2)
[2018-11-11] MEDS ORDERED: FUROSEMIDE 40 MG/4 ML VIAL ONE (16:20)
[2018-11-11 16:45] LABS: B-TYPE NATRIURETIC PEPTIDE 1591 PG/ML (0-125)
[2018-11-11] MEDS ORDERED: IV NS 0.9% 1,000 ML IV PRN (16:52)
[2018-11-11] MEDS ORDERED: Z GUARD REMEDY 2 OZ OINT TP PRN (17:00)
[2018-11-11] MEDS ORDERED: ONDANSETRON HCL/PF 4 MG/2 ML VIAL IVP PRN (17:00)
[2018-11-11] MEDS ORDERED: LORAZEPAM 1 MG TABLET PO PRN (17:00)
[2018-11-11] MEDS ORDERED: HYDROCODONE/APAP 5/325MG 1 EACH TABLET PO PRN (17:00)
[2018-11-11] MEDS ORDERED: MAG HYDROX/AL HYDROX/SIMETH 30 ML UDC PO PRN (17:00)
[2018-11-11] MEDS ORDERED: CLONIDINE HCL 0.2 MG TABLET PO PRN (17:00)
[2018-11-11] MEDS ORDERED: ZOLPIDEM TARTRATE 5 MG TABLET PO PRN (17:00)
[2018-11-11] MEDS ORDERED: MAGNESIUM HYDROXIDE 30 ML UDC PO PRN (17:00)
[2018-11-11] MEDS: AMLODIPINE BESYLATE 10 MG TABLET PO SCH (18:44)
[2018-11-11 19:06] LABS: EOSINOPHILS % (MANUAL) 1 % (0-4); LYMPHOCYTES % (MANUAL) 24 % (16-48); MONOCYTES % (MANUAL) 6 % (0-11.0); NEUTROPHILS % (MANUAL) 69 (42-76)
[2018-11-11] MEDS ORDERED: DEXTROSE 50%-WATER 50 ML DISP.SYRIN IV PRN (19:30)
[2018-11-11] MEDS: BLOOD SUGAR DIAGNOSTIC 1 EACH STRIP IN SCH ×2 (19:30→21:47)
[2018-11-11 20:00] VITALS: BP 177/73
[2018-11-11 20:35] VITALS: BP 177/73
[2018-11-11 20:50] VITALS: BP 178/71
[2018-11-11 21:35] VITALS: BP 179/82
[2018-11-11] MEDS: GABAPENTIN 100 MG CAPSULE PO SCH (21:39)
[2018-11-11] MEDS: ATORVASTATIN 10 MG TABLET PO SCH (21:39)
[2018-11-11] MEDS: CLONIDINE HCL 0.1 MG TABLET PO PRN (21:57)
[2018-11-11] MEDS ORDERED: IBUPROFEN 400 MG TABLET ONE (22:23)
[2018-11-11 23:27] VITALS: BP 169/78
[2018-11-11 23:54] VITALS: BP 153/68
[2018-11-12] VITALS (12 sets, daily range): BP systolic 145–180; BP diastolic 65–84
[2018-11-12] MEDS: BLOOD SUGAR DIAGNOSTIC 1 EACH STRIP IN SCH ×4 (06:20→21:14)
[2018-11-12 06:25] LABS: BASOPHILS # (AUTO) 0.1 /CMM (0.0-0.2); BASOPHILS % (AUTO) 1.9 % (0.0-2.0); EOSINOPHILS % (AUTO) 3.3 % (0.0-6.0); HEMATOCRIT 25 % (33-45); HEMOGLOBIN 8.5 g/dL (11.5-14.8); LYMPHOCYTES # (AUTO) 1.6 /CMM (0.8-4.8); LYMPHOCYTES % (AUTO) 26.2 % (20.0-44.0); MEAN CORPUSCULAR HGB CONC 34 g/dl (31.0-36.0); MEAN CORPUSCULAR VOLUME 87 fL (82-100); MONOCYTES # (AUTO) 0.4 /CMM (0.1-1.30); MONOCYTES % (AUTO) 6.5 % (2.0-12.0); NEUTROPHILS # (AUTO) 3.8 /CMM (1.8-8.9); NEUTROPHILS % (AUTO) 62.1 % (43.0-81.0); PLATELET COUNT (AUTO) 229 /CMM (150-450); RED BLOOD CELL COUNT(AUTO) 2.91 MIL/uL (4.0-5.2); WHITE BLOOD COUNT (AUTO) 6.1 K/uL (4.3-11.0)
[2018-11-12 06:45] LABS: CALCIUM, SERUM 8.1 mg/dL (8.5-10.1); CREATININE 1.7 mg/dL (0.6-1.3); MAGNESIUM 1.8 mg/dL (1.8-2.4); POTASSIUM 4.4 mmol/L (3.5-5.1)
[2018-11-12] MEDS: FERROUS SULFATE (325 MG) 325 MG/TAB TABLET PO SCH (08:34)
[2018-11-12] MEDS: OXCARBAZEPINE 150 MG TABLET PO SCH ×3 (08:34→16:09)
[2018-11-12] MEDS: busPIRone 5 MG TABLET PO SCH (08:35)
[2018-11-12] MEDS: risperiDONE 0.25 MG TABLET PO SCH ×4 (08:35→21:02)
[2018-11-12] MEDS: BENZTROPINE MESYLATE (1 MG) 1 MG TABLET PO SCH (08:35)
[2018-11-12] MEDS: GABAPENTIN 100 MG CAPSULE PO SCH ×2 (08:35→21:02)
[2018-11-12] MEDS: FUROSEMIDE 20 MG TABLET PO SCH (08:35)
[2018-11-12] MEDS: AMLODIPINE BESYLATE 10 MG TABLET PO SCH ×2 (08:36→10:00)
[2018-11-12] MEDS: CLONIDINE HCL 0.1 MG TABLET PO PRN (08:42)
[2018-11-12] MEDS: INSULIN REGULAR, HUMAN 100 UNIT/ML 3 ML VIAL SQ PRN ×2 (11:55→21:17)
[2018-11-12] MEDS: hydrALAZINE HCL 25 MG TABLET PO PRN ×2 (16:08→21:11)
[2018-11-12] MEDS ORDERED: DOXAZOSIN MESYLATE (1 MG) 1 MG TABLET PO SCH (18:00)
[2018-11-12 18:59] LABS: IRON, SERUM 139 ug/dl (50-175); TOTAL IRON BINDING CAPACITY 162 ug/dl (250-450)
[2018-11-12] MEDS ORDERED: POLYETHYLENE GLYCOL 3350 17 GM POWD.PACK PO PRN (19:00)
[2018-11-12 19:22] LABS: FERRITIN 89 ng/mL (8-388)
[2018-11-12 20:26] LABS: CREATININE, URINE 58.6 MG/DL (30.0-125.0); URINE TOTAL PROTEIN 895.9 mg/dL (0-11.9)
[2018-11-12 20:27] LABS: APPEARANCE,URINE CLEAR (CLEAR); BILIRUBIN,URINE NEGATIVE (NEGATIVE); BLOOD, URINE 1+ Ery/uL (NEGATIVE); COLOR,URINE YELLOW (YELLOW); KETONES,URINE NEGATIVE (NEGATIVE); LEUKOCYTE ESTERASE ,URINE NEGATIVE (NEGATIVE); NITRITE, URINE NEGATIVE (NEGATIVE); PROTEIN,URINE 3+ mg/dl (NEGATIVE); UGLUCOSE TRACE mg/dL (NEGATIVE); UROBILINOGEN,URINE 0.2 EU/dL (0.2)
[2018-11-12 20:32] LABS: BACTERIA,URINE Few /HPF (None Seen); SQUAMOUS EPITHELIAL CELL,UR Moderate /HPF (None Seen)
[2018-11-12] MEDS: PANTOPRAZOLE 40 MG VIAL IV SCH (20:59)
[2018-11-12] MEDS: ATORVASTATIN 10 MG TABLET PO SCH (21:03)
[2018-11-12 21:35] LABS: EOSINOPHIL,URINE None Seen
[2018-11-12] MEDS ORDERED: GUAIFENESIN/CODEINE 10 ML UDC PO PRN (23:00)
[2018-11-12] MEDS ORDERED: ATOR80TA PO (23:32)
[2018-11-12] MEDS ORDERED: LEVO88TA5 PO (23:32)
[2018-11-12] MEDS ORDERED: METF-440 PO (23:32)
[2018-11-12] MEDS ORDERED: METO100T14 PO (23:32)
[2018-11-12] MEDS: GUAIFENESIN/D-METHORPHAN HB 5 ML UDC PO PRN (23:50)
[2018-11-13 00:30] VITALS: BP 160/77
[2018-11-13 01:30] VITALS: BP 156/73
[2018-11-13] MEDS: ACETAMINOPHEN 325 MG TABLET PO PRN (02:37)
[2018-11-13] MEDS: BLOOD SUGAR DIAGNOSTIC 1 EACH STRIP IN SCH ×4 (06:06→21:43)
[2018-11-13] MEDS: INSULIN REGULAR, HUMAN 100 UNIT/ML 3 ML VIAL SQ PRN ×3 (06:06→21:52)
[2018-11-13] MEDS: GUAIFENESIN/D-METHORPHAN HB 5 ML UDC PO PRN ×2 (06:07→16:20)
[2018-11-13] MEDS: CLONIDINE HCL 0.1 MG TABLET PO PRN (06:12)
[2018-11-13 06:30] VITALS: BP 141/63
[2018-11-13 06:33] LABS: BASOPHILS # (AUTO) 0.1 /CMM (0.0-0.2); BASOPHILS % (AUTO) 1.4 % (0.0-2.0); EOSINOPHILS % (AUTO) 3.1 % (0.0-6.0); HEMATOCRIT 27 % (33-45); HEMOGLOBIN 9.2 g/dL (11.5-14.8); LYMPHOCYTES # (AUTO) 1.5 /CMM (0.8-4.8); LYMPHOCYTES % (AUTO) 23.4 % (20.0-44.0); MEAN CORPUSCULAR HGB CONC 34 g/dl (31.0-36.0); MEAN CORPUSCULAR VOLUME 87 fL (82-100); MONOCYTES # (AUTO) 0.4 /CMM (0.1-1.30); MONOCYTES % (AUTO) 6.8 % (2.0-12.0); NEUTROPHILS # (AUTO) 4.1 /CMM (1.8-8.9); NEUTROPHILS % (AUTO) 65.3 % (43.0-81.0); PLATELET COUNT (AUTO) 267 /CMM (150-450); RED BLOOD CELL COUNT(AUTO) 3.08 MIL/uL (4.0-5.2); WHITE BLOOD COUNT (AUTO) 6.2 K/uL (4.3-11.0)
[2018-11-13 06:52] LABS: ALBUMIN 1.9 g/dL (3.4-5.0); BILIRUBIN,TOTAL 0.2 mg/dL (0.2-1.0); CALCIUM, SERUM 8.2 mg/dL (8.5-10.1); CREATININE 1.8 mg/dL (0.6-1.3); PHOSPHORUS 5.2 mg/dL (2.5-4.9); POTASSIUM 4.3 mmol/L (3.5-5.1); TOTAL PROTEIN, SERUM 7.1 g/dL (6.4-8.2)
[2018-11-13] MEDS: hydrALAZINE HCL 25 MG TABLET PO PRN (07:43)
[2018-11-13 08:00] VITALS: BP 153/59
[2018-11-13] MEDS: busPIRone 5 MG TABLET PO SCH (09:08)
[2018-11-13] MEDS: GABAPENTIN 100 MG CAPSULE PO SCH ×2 (09:08→20:45)
[2018-11-13] MEDS: FUROSEMIDE 20 MG TABLET PO SCH (09:08)
[2018-11-13] MEDS: FERROUS SULFATE (325 MG) 325 MG/TAB TABLET PO SCH (09:08)
[2018-11-13] MEDS: BENZTROPINE MESYLATE (1 MG) 1 MG TABLET PO SCH (09:08)
[2018-11-13] MEDS: AMLODIPINE BESYLATE 10 MG TABLET PO SCH (09:09)
[2018-11-13] MEDS: risperiDONE 0.25 MG TABLET PO SCH ×4 (09:09→20:46)
[2018-11-13] MEDS: OXCARBAZEPINE 150 MG TABLET PO SCH ×3 (09:09→16:16)
[2018-11-13] MEDS: DOXAZOSIN MESYLATE (1 MG) 1 MG TABLET PO SCH ×2 (14:35→16:17)
[2018-11-13 16:00] VITALS: BP 140/73
[2018-11-13 16:13] LABS: OCCULT BLOOD STOOL NEGATIVE (NEGATIVE)
[2018-11-13 20:00] VITALS: BP 145/67
[2018-11-13] MEDS: PANTOPRAZOLE 40 MG VIAL IV SCH (20:51)
[2018-11-13] MEDS: ATORVASTATIN 10 MG TABLET PO SCH (21:43)
[2018-11-14] MEDS: ACETAMINOPHEN 325 MG TABLET PO PRN (02:11)
[2018-11-14] MEDS: GUAIFENESIN/D-METHORPHAN HB 5 ML UDC PO PRN (04:00)
[2018-11-14] MEDS: BLOOD SUGAR DIAGNOSTIC 1 EACH STRIP IN SCH ×2 (05:34→14:26)
[2018-11-14] MEDS: INSULIN REGULAR, HUMAN 100 UNIT/ML 3 ML VIAL SQ PRN ×2 (05:45→14:30)
[2018-11-14 07:12] LABS: BASOPHILS # (AUTO) 0.1 /CMM (0.0-0.2); BASOPHILS % (AUTO) 1.2 % (0.0-2.0); HEMATOCRIT 26 % (33-45); HEMOGLOBIN 8.8 g/dL (11.5-14.8); LYMPHOCYTES # (AUTO) 1.3 /CMM (0.8-4.8); LYMPHOCYTES % (AUTO) 22.3 % (20.0-44.0); MEAN CORPUSCULAR HGB CONC 34 g/dl (31.0-36.0); MEAN CORPUSCULAR VOLUME 88 fL (82-100); MONOCYTES # (AUTO) 0.4 /CMM (0.1-1.30); MONOCYTES % (AUTO) 6.7 % (2.0-12.0); NEUTROPHILS # (AUTO) 3.8 /CMM (1.8-8.9); NEUTROPHILS % (AUTO) 66.8 % (43.0-81.0); PLATELET COUNT (AUTO) 250 /CMM (150-450); RED BLOOD CELL COUNT(AUTO) 2.99 MIL/uL (4.0-5.2); WHITE BLOOD COUNT (AUTO) 5.7 K/uL (4.3-11.0)
[2018-11-14 07:25] LABS: CALCIUM, SERUM 8.1 mg/dL (8.5-10.1); CREATININE 2.1 mg/dL (0.6-1.3); MAGNESIUM 2.1 mg/dL (1.8-2.4); PHOSPHORUS 5.2 mg/dL (2.5-4.9); POTASSIUM 4.3 mmol/L (3.5-5.1)
[2018-11-14 08:00] VITALS: BP 164/81
[2018-11-14] MEDS: GABAPENTIN 100 MG CAPSULE PO SCH (09:47)
[2018-11-14] MEDS: risperiDONE 0.25 MG TABLET PO SCH ×2 (09:47→14:26)
[2018-11-14] MEDS: FERROUS SULFATE (325 MG) 325 MG/TAB TABLET PO SCH (09:47)
[2018-11-14] MEDS: OXCARBAZEPINE 150 MG TABLET PO SCH ×2 (09:48→14:26)
[2018-11-14] MEDS: BENZTROPINE MESYLATE (1 MG) 1 MG TABLET PO SCH (09:48)
[2018-11-14 09:50] VITALS: BP 164/81
[2018-11-14] MEDS: DOXAZOSIN MESYLATE (1 MG) 1 MG TABLET PO SCH (09:50)
[2018-11-14] MEDS: AMLODIPINE BESYLATE 10 MG TABLET PO SCH (09:50)
[2018-11-14] MEDS: FUROSEMIDE 20 MG TABLET PO SCH (09:50)
[2018-11-14] MEDS: busPIRone 5 MG TABLET PO SCH (09:51)
[2018-11-14] MEDS ORDERED: DOXA1TAB17 PO (13:34)
[2018-11-16 06:07] LABS: *SPE A/G RATIO 0.5 (0.7-1.7); *SPE ALBUMIN 2.2 g/dL (2.9-4.4); *SPE ALPHA-1-GLOBULIN 0.3 g/dL (0.0-0.4); *SPE ALPHA-2-GLOBULIN 1.2 g/dL (0.4-1.0); *SPE BETA GLOBULIN 1.3 g/dL (0.7-1.3); *SPE GLOBULIN, TOTAL 4.1 g/dL (2.2-3.9); *SPE M-SPIKE Not Observed g/dL (Not Observed); *SPEGAMMA GLOBULIN 1.4 g/dL (0.4-1.8)
[2018-11-16 14:07] LABS: PTH, INTACT 89 pg/mL (15-65)
== END 2018-11-14 15:00 | DRG 811 ==
LOC: ER 15:16 → MED 17:17 → TELE 19:58 → MED 11-12 08:38
PROVIDERS: ADMIT Internal Medicine; ATTEND Internal Medicine
PROC: 30233N1 Transfusion of Nonautologous Red Blood Cells into Peripheral Vein, Percutaneous Approach (ICD-10-PCS; principal; 2018-11-11)
DX: D50.9 Iron deficiency anemia, unspecified (principal); G93.41 Metabolic encephalopathy; N17.0 Acute kidney failure with tubular necrosis; E43 Unspecified severe protein-calorie malnutrition; D68.59 Other primary thrombophilia; I16.0 Hypertensive urgency; N18.9 Chronic kidney disease, unspecified; K21.9 Gastro-esophageal reflux disease without esophagitis; D63.1 Anemia in chronic kidney disease; E11.22 Type 2 diabetes mellitus with diabetic chronic kidney disease; E78.5 Hyperlipidemia, unspecified; G20 Parkinson's disease; M19.90 Unspecified osteoarthritis, unspecified site; Z79.4 Long term (current) use of insulin; F32.9 Major depressive disorder, single episode, unspecified; F20.9 Schizophrenia, unspecified; E66.01 Morbid (severe) obesity due to excess calories; Z68.38 Body mass index [BMI] 38.0-38.9, adult; E11.21 Type 2 diabetes mellitus with diabetic nephropathy; K59.00 Constipation, unspecified; I12.9 Hypertensive chronic kidney disease with stage 1 through stage 4 chronic kidney disease, or unspecified chronic kidney disease
CPT/HCPCS: 36415; 71045-TC; 80048-TC; 80053-TC; 80061-TC; 80076-TC; 81000-TC; 82272-TC; 82550-TC; 82570-TC; 82728-TC; 82962-TC; 83540-TC; 83735-TC; 83880; 83970; 84100-TC; 84155; 84155-TC; 84165; 84300-TC; 84484-TC; 85025-TC; 85730-TC; 86850-TC; 86921-TC; 87081-TC; C9113; G0378; J1815; J1940; J7030; J7050; P9016-BL

== ENCOUNTER 2019-11-20 11:10 | Inpatient (IN) | payer MEDICARE, OTHER ==
[~2019-11-20] VITALS: Ht 157.5 cm; Wt 73.5 kg
[~2019-11-20 11:10] MED LIST changes: -ASCO500T9 PO; -ASPI-1169 PO; -BISA5TAB10 PO; -BUPR75TA21 PO; +BUSP5TAB3 PO; +CHOL10002 PO; +CLON0.2T PO; +DOXA1TAB17 PO; +EPOE4000 IJ; +FLUT9.9S NS; +FURO-145 PO; +GABA-532 PO; -HEPA500014 SQ; -HYDR-4077 PO; +INSU100V3 IJ; +INSU100V7 SQ; +LORA-259 PO; -METO25TA20 PO; +OMEG-167 PO; +OXCA300T15 PO; -PANT40TA2 PO; -QUET25TA PO; +RISP0.5T5 PO
--- NOTE | 2019-11-20 11:46 | NUR ---
KIMBERLY, FROM [facility] II, C/O ABDOMINAL PAIN AND UNABLE TO URINATE X3 DAYS, +N/V, TO ER BED 2, HOOKED TO MONITOR, CHANGED TO HOSP GOWN, WARM BLANKET PROVIDED, PATIENT AAO x 4, BREATHING EVEN AND UNLABORED, AWAITING MD SPANGLER.
--- NOTE | 2019-11-20 11:49 | NUR ---
DR RODRIGUEZ AT BEDSIDE FOR EVAL.
[2019-11-20] MEDS ORDERED: MORPHINE SULFATE INJ 2 MG/ML DISP.SYRIN IV ONE (12:00)
[2019-11-20] MEDS ORDERED: IV NS 0.9% 500 ML BAG IV ONE (12:00)
[2019-11-20] MEDS ORDERED: ONDANSETRON HCL/PF 4 MG/2 ML VIAL IVP ONE (12:00)
[2019-11-20 12:19] LABS: BASOPHILS # (AUTO) 0.2 /CMM (0.0-0.2); BASOPHILS % (AUTO) 3.1 % (0.0-2.0); EOSINOPHILS % (AUTO) 2.9 % (0.0-6.0); HEMATOCRIT 34 % (33-45); HEMOGLOBIN 11.3 g/dL (11.5-14.8); LYMPHOCYTES % (AUTO) 33.1 % (20.0-44.0); MEAN CORPUSCULAR HGB CONC 33 g/dl (31.0-36.0); MEAN CORPUSCULAR VOLUME 90 fL (82-100); MONOCYTES # (AUTO) 0.6 /CMM (0.1-1.30); NEUTROPHILS # (AUTO) 2.9 /CMM (1.8-8.9); NEUTROPHILS % (AUTO) 49.9 % (43.0-81.0); PLATELET COUNT (AUTO) 154 /CMM (150-450); RED BLOOD CELL COUNT(AUTO) 3.79 MIL/uL (4.0-5.2); WHITE BLOOD COUNT (AUTO) 5.9 K/uL (4.3-11.0)
[2019-11-20 12:33] LABS: CALCIUM, SERUM 9.1 mg/dL (8.5-10.1); CARBON DIOXIDE 23 mmol/L (21-32); CHLORIDE 92 mmol/L (98-107); CREATININE 6.3 mg/dL (0.6-1.3); GLUCOSE 298 mg/dL (74-106); POTASSIUM 4.1 mmol/L (3.5-5.1); SODIUM SERUM 131 mmol/L (136-145); UREA NITROGEN, BLOOD 56 mg/dL (7-18)
[2019-11-20] MEDS ORDERED: MORPHINE SULFATE INJ 4 MG/ML DISP.SYRIN ONE (12:33)
[2019-11-20] MEDS ORDERED: ONDANSETRON HCL/PF 4 MG/2 ML VIAL ONE (12:33)
[2019-11-20 12:39] LABS: ALANINE AMINOTRANSFERASE 24 U/L (12-78); ALBUMIN 3.4 g/dL (3.4-5.0); ALKALINE PHOSPHATASE 133 U/L (46-116); ASPARTATE AMINOTRANSFERASE 24 U/L (15-37); BILIRUBIN,DIRECT 0.2 mg/dL (0.0-0.2); BILIRUBIN,TOTAL 0.4 mg/dL (0.2-1.0); LIPASE 493 U/L (73-393); TOTAL PROTEIN, SERUM 8.5 g/dL (6.4-8.2)
--- NOTE | 2019-11-20 12:59 | NUR ---
PICKED UP BY BILLING DEPARTMENT SUPERVISOR VIA [facility] FOR CT SCAN.
[2019-11-20] MEDS ORDERED: LURA40TA PO (13:12)
[2019-11-20] MEDS ORDERED: GLYB5TAB7 PO (13:12)
[2019-11-20] MEDS ORDERED: HYDR-4384 PO (13:12)
[2019-11-20] MEDS ORDERED: SEVE800T8 PO (13:12)
[2019-11-20] MEDS ORDERED: CARV12.52 PO (13:12)
[2019-11-20] MEDS ORDERED: DIVA250T PO (13:12)
[2019-11-20] MEDS ORDERED: QUET25TA PO (13:12)
[2019-11-20] MEDS ORDERED: CLON0.5T4 PO (13:12)
[2019-11-20] MEDS ORDERED: CLON0.1T PO (13:14)
--- NOTE | 2019-11-20 13:30 | NUR ---
URINE SAMPLE COLLECTED VIA STRAIGHT CATHETER, SAMPLE SENT TO LAB.
--- NOTE | 2019-11-20 14:03 | NUR ---
RAPID COVID SWAB DONE AND SENT TO LAB.
[2019-11-20 14:21] LABS: APPEARANCE,URINE CLOUDY (CLEAR); BILIRUBIN,URINE NEGATIVE (NEGATIVE); BLOOD, URINE MODERATE Ery/uL (NEGATIVE); COLOR,URINE YELLOW (YELLOW); KETONES,URINE NEGATIVE (NEGATIVE); LEUKOCYTE ESTERASE ,URINE LARGE (NEGATIVE); NITRITE, URINE NEGATIVE (NEGATIVE); PROTEIN,URINE 100 mg/dl (NEGATIVE); UGLUCOSE NEGATIVE (NEGATIVE); UROBILINOGEN,URINE 0.2 EU/dL (0.2)
[2019-11-20] MEDS ORDERED: ONDANSETRON HCL/PF 4 MG/2 ML VIAL IVP PRN (14:30)
[2019-11-20] MEDS ORDERED: MORPHINE SULFATE INJ 2 MG/ML DISP.SYRIN IV PRN (14:30)
[2019-11-20] MEDS ORDERED: IV NS 0.9% 1,000 ML IV SCH (14:30)
[2019-11-20] MEDS ORDERED: ACETAMINOPHEN 325 MG TABLET PO PRN (14:30)
[2019-11-20] MEDS ORDERED: MAG HYDROX/AL HYDROX/SIMETH 30 ML UDC PO PRN (14:30)
[2019-11-20] MEDS ORDERED: Z GUARD REMEDY 2 OZ OINT TP PRN (14:30)
[2019-11-20] MEDS ORDERED: DEXTROSE 50%-WATER 50 ML DISP.SYRIN IV PRN (14:30)
[2019-11-20] MEDS ORDERED: MAGNESIUM HYDROXIDE 30 ML UDC PO PRN (14:30)
--- NOTE | 2019-11-20 15:40 | NUR ---
LAB CALLED COVID-19 NEG. (-)
[2019-11-20 15:46] LABS: RBC,URINE 21-50 /HPF (0-2)
[2019-11-20 15:47] LABS: BACTERIA,URINE 4+ /HPF (None Seen); SQUAMOUS EPITHELIAL CELL,UR 0-2 /HPF (None Seen); WBC,URINE 51-80 /HPF (0-3)
--- NOTE | 2019-11-20 16:48 | NUR ---
REPORT GIVEN TO FANNY SHEIKH. PT AWAITING TRANASFER TO FLOOR.
--- NOTE | 2019-11-20 17:15 | NUR ---
MS/curriculum and instruction director New admission from ER with abdominal pain. Patient fully admitted, pictures taken, orders noted and carried out. Dr Cunningham called to verify IV fluids order as patient is dialysis patient, awaiting call back. Blood sugar upon arrival 189. Call light within reach, bed in low setting, side rails x3 in upright position. Will continue to monitor and ensure safety.
[2019-11-20 17:32] VITALS: BP 127/51
[2019-11-20] MEDS: BLOOD SUGAR DIAGNOSTIC 1 EACH STRIP VI SCH ×2 (17:52→21:43)
[2019-11-20 18:28] VITALS: BP 127/51
--- NOTE | 2019-11-20 18:50 | NUR ---
MS/RN End note Patient remains in stable condition, all needs attended. Call received from Dr Cunningham, order given to discontinue order for IV fluids as patient is a dialysis patient.
--- NOTE | 2019-11-20 19:38 | NUR ---
OPERA SINGER OPENING NOTES PATIENT SLEEPING, EASY TO AWAKEN. A/OX3; PRIMARY LANGUAGE MALAYSIAN. ON RA; NO S/S OF ACUTE RESPIRATORY DISTRESS; BREATHING IS EVEN AND UNLABORED. NO C/O PAIN AT THIS TIME. TELE MONITOR READING NSR, HEART RATE 65. IV PRESENT ON RIGHT AC, SIZE 20, INTACT & PATENT, HEP LOCKED. SAFETY MEASURES IN PLACE AND PATIENT'S NEEDS MET. BED LOCKED, ALARM ON, SIDE RAILS X2, CALL LIGHT WITHIN REACH. WILL CONTINUE TO MONITOR.
[2019-11-20 20:00] VITALS: BP 114/53
[2019-11-20] MEDS: DIVALPROEX SODIUM 250 MG TABLET.DR PO SCH (21:28)
[2019-11-20] MEDS: ATORVASTATIN 40 MG TABLET PO SCH (21:28)
[2019-11-20] MEDS: QUETIAPINE FUMARATE 25 MG TABLET PO SCH (21:28)
[2019-11-20] MEDS: CARVEDILOL 12.5 MG TABLET PO SCH (21:29)
[2019-11-20] MEDS: *INSULIN REGULAR(HUMULIN R)HUM 100 UNIT/ML VIAL SQ PRN (22:47)
--- NOTE | 2019-11-21 00:23 | NUR ---
SENIOR SQL DEVELOPER NOTES PATIENT REFUSED MIDNIGHT VITAL SIGNS. STATES SHE DOES NOT WANT TO BE WOKEN UP. WILL CONTINUE TO MONITOR.
[2019-11-21 03:58] VITALS: BP 112/49
[2019-11-21 04:00] VITALS: BP 112/49
[2019-11-21] MEDS: *INSULIN REGULAR(HUMULIN R)HUM 100 UNIT/ML VIAL SQ PRN ×2 (06:25→21:50)
[2019-11-21] MEDS: BLOOD SUGAR DIAGNOSTIC 1 EACH STRIP VI SCH ×4 (06:26→22:19)
[2019-11-21 06:59] LABS: BASOPHILS # (AUTO) 0.1 /CMM (0.0-0.2); BASOPHILS % (AUTO) 1.8 % (0.0-2.0); EOSINOPHILS % (AUTO) 2.7 % (0.0-6.0); HEMATOCRIT 32 % (33-45); HEMOGLOBIN 10.4 g/dL (11.5-14.8); LYMPHOCYTES # (AUTO) 1.9 /CMM (0.8-4.8); LYMPHOCYTES % (AUTO) 39.9 % (20.0-44.0); MEAN CORPUSCULAR HGB CONC 33 g/dl (31.0-36.0); MEAN CORPUSCULAR VOLUME 92 fL (82-100); MONOCYTES # (AUTO) 0.4 /CMM (0.1-1.30); MONOCYTES % (AUTO) 8.4 % (2.0-12.0); NEUTROPHILS # (AUTO) 2.3 /CMM (1.8-8.9); NEUTROPHILS % (AUTO) 47.2 % (43.0-81.0); PLATELET COUNT (AUTO) 144 /CMM (150-450); RED BLOOD CELL COUNT(AUTO) 3.44 MIL/uL (4.0-5.2); WHITE BLOOD COUNT (AUTO) 4.8 K/uL (4.3-11.0)
[2019-11-21 07:20] LABS: CALCIUM, SERUM 8.8 mg/dL (8.5-10.1); MAGNESIUM 2.5 mg/dL (1.8-2.4); PHOSPHORUS 6.3 mg/dL (2.5-4.9); POTASSIUM 4.2 mmol/L (3.5-5.1)
--- NOTE | 2019-11-21 07:20 | NUR ---
PAINTER SET CLOSING NOTES PATIENT SLEEPING, EASY TO AWAKEN. A/OX3. ON RA; NO S/S OF ACUTE RESPIRATORY DISTRESS; BREATHING IS EVEN AND UNLABORED. NO C/O PAIN AT THIS TIME. TELE MONITOR READING NSR, HEART RATE 62. IV PRESENT ON RIGHT AC, SIZE 20, INTACT & PATENT, HEP LOCKED. CONRAD CATH PRESENT AND DRAINING WELL; 500 ML OF CLEAR YELLOW URINE DRAINED. SAFETY MEASURES IN PLACE AND PATIENT'S NEEDS MET. BED LOCKED, ALARM ON, SIDE RAILS X2, CALL LIGHT WITHIN REACH. ENDORSED TO DAY SHIFT RN PLAN OF CARE.
--- NOTE | 2019-11-21 07:30 | NUR ---
PROPELLANT CHARGE ZONE ASSEMBLER NOTES PATIENT RECEIVED IN BED, SLEEPING, EASILY AWAKEN BY NAME AND LIGHT TOUCH. ALERT AND ORIENTED X 3, MAINLY UZBEK SPEAKING. ON TRAIN DIRECTOR, NORMAL SINUS, 60'S. ON ROOM AIR WITH NO SIGNS OF RESPIRATORY DISTRESS PRESENT, WITH EVEN NON-LABORED BREATHING AND NO SOB NOTED. SKIN WARM AND DRY TO TOUCH, IV ACCESS INTACT AND PATENT ON RIGHT AC, SALINE LOCK. CONRAD CATHETER IN PLACE AND WITH URINE OUTPUT PRESENT FLOWING BY GRAVITY. PATIENT PRESENTS WITH NO PAIN OR DISCOMFORT AT THIS TIME. SAFETY PRECAUTIONS IMPLEMENTED WITH BED LOCKED, BED IN THE LOWEST POSITION, BILATERAL SIDE RAILS UP, BED ALARM ON, AND CALL LIGHT WITHIN EASY REACH. WILL CONTINUE TO MONITOR PATIENT.
[2019-11-21 08:45] VITALS: BP 120/54
[2019-11-21] MEDS: clonazePAM 0.5 MG TABLET PO SCH ×2 (08:57→17:27)
[2019-11-21] MEDS: BENZTROPINE MESYLATE (1 MG) 1 MG TABLET PO SCH ×2 (08:57→17:27)
[2019-11-21] MEDS: SEVELAMER CARBONATE 800 MG TABLET PO SCH ×2 (08:57→17:27)
[2019-11-21] MEDS: QUETIAPINE FUMARATE 25 MG TABLET PO SCH ×2 (08:58→22:18)
[2019-11-21] MEDS: CLONIDINE HCL 0.1 MG TABLET PO SCH ×2 (09:00→17:00)
[2019-11-21] MEDS: CARVEDILOL 12.5 MG TABLET PO SCH ×2 (09:00→22:18)
--- NOTE | 2019-11-21 09:00 | NUR ---
MS RN NOTES PATIENT WILL BE RECEIVING DIALYSIS STATED BY ULTRASOUND TECHNOL PITO. HELD ALL BLOOD PRESSURE MEDICATIONS. WILL CONTINUE TO MONITOR PATIENT.
[2019-11-21] MEDS: CEFTRIAXONE 1 G in IV D5W 50 ML IV SCH (11:49)
[2019-11-21] MEDS: INSULIN REGULAR, HUMAN 100 UNIT/ML 3 ML VIAL SQ PRN ×2 (12:03→17:39)
--- NOTE | 2019-11-21 15:30 | NUR ---
REGISTERED NURSE CARDIAC NOTES PATIENT STARTED HEMODIALYSIS, FILIBERTO RN AT BEDSIDE, WILL CONTINUE TO MONITOR PATIENT.
--- NOTE | 2019-11-21 17:30 | NUR ---
MOTOR BLOCK MECHANIC NOTES HELD CLONIDINE, BLOOD PRESSURE MEDICATION DUE TO PATIENT STILL IN HEMODIALYSIS. DELICATESSEN CLERKFILIBERTO AT BEDSIDE. WILL CONTINUE TO MONITOR PATIENT.
--- NOTE | 2019-11-21 18:40 | NUR ---
SENIOR CONSTRUCTION MANAGER NOTES PATIENT IN BED, RESTING COMFORTABLY. ALERT AND ORIENTED X 3, MAINLY LEBANESE SPEAKING. ON ROOM AIR WITH NO RESPIRATORY DISTRESS PRESENT AT THIS TIME, WITH EVEN NON-LABORED BREATHING AND NO SOB NOTED. ON SENIOR MAINFRAME DEVELOPER, 70'S. IV ACCESS INTACT AND PATENT SALINE LOCK. HEMODIALYSIS OUTPUT 1,000mL. SKIN KEPT CLEAN AND DRY. MET ALL OF PATIENT NEEDS. PATIENT PRESENTS WITH NO SIGNS OF PAIN OR DISCOMFORT AT THIS TIME. SAFETY PRECAUTIONS IN PLACE WITH BED LOCKED, BED ALARM ON, BILATERAL SIDE RAILS UP, BED IN THE LOWEST POSITION AND CALL LIGHT WITHIN EASY REACH. WILL ENDORSE PLAN OF CARE TO UPCOMING NURSE.
--- NOTE | 2019-11-21 19:49 | NUR ---
MS/TELE/RN AT INITIAL SHIFT ROUNDING, PATIENT WAS AWAKE, ALERT, COMFORTABLE, NO C/O PAIN, NO DISTRESS NOTED, CALL LIGHT IN REACH, FALL PRECAUTIONS PER PROTOCOL, WILL MONITOR.
[2019-11-21 20:57] VITALS: BP 148/64
[2019-11-21] MEDS: DIVALPROEX SODIUM 250 MG TABLET.DR PO SCH (22:18)
[2019-11-21] MEDS: ATORVASTATIN 40 MG TABLET PO SCH (22:18)
[2019-11-21] MEDS: HYDROCODONE/APAP 5/325MG TABLET PO PRN (23:04)
[2019-11-22] VITALS: BP_SYST 105; BP_SYST 133; BP_DIAS 58; BP_DIAS 62
--- NOTE | 2019-11-22 00:36 | NUR ---
MS/TELE/RN PATIENT IS SLEEPING AT THIS TIME, APPEAR COMFORTABLE, NO SIGNS OF DISTRESS NOTED, CALL LIGHT IN REACH, WILL CONTINUE TO MONITOR.
--- NOTE | 2019-11-22 06:12 | NUR ---
MS/TELE/RN PATIENT IS STILL SLEEPING AT THIS TIME, APPEAR COMFORTABLE, NO SIGNS OF DISTRESS NOTED, CALL LIGHT IN REACH, ALL NEEDS ATTENDED AT THIS TIME, WILL CONTINUE TO MONITOR.
[2019-11-22] MEDS: INSULIN REGULAR, HUMAN 100 UNIT/ML 3 ML VIAL SQ PRN ×2 (06:37→18:18)
[2019-11-22] MEDS: BLOOD SUGAR DIAGNOSTIC 1 EACH STRIP VI SCH ×4 (06:38→23:40)
[2019-11-22 06:48] LABS: BASOPHILS # (AUTO) 0.1 /CMM (0.0-0.2); BASOPHILS % (AUTO) 1.1 % (0.0-2.0); EOSINOPHILS % (AUTO) 2.6 % (0.0-6.0); HEMATOCRIT 32 % (33-45); HEMOGLOBIN 10.6 g/dL (11.5-14.8); LYMPHOCYTES # (AUTO) 1.8 /CMM (0.8-4.8); LYMPHOCYTES % (AUTO) 39.8 % (20.0-44.0); MEAN CORPUSCULAR HGB CONC 33 g/dl (31.0-36.0); MEAN CORPUSCULAR VOLUME 92 fL (82-100); MONOCYTES # (AUTO) 0.4 /CMM (0.1-1.30); MONOCYTES % (AUTO) 9.5 % (2.0-12.0); NEUTROPHILS # (AUTO) 2.1 /CMM (1.8-8.9); PLATELET COUNT (AUTO) 144 /CMM (150-450); WHITE BLOOD COUNT (AUTO) 4.4 K/uL (4.3-11.0)
[2019-11-22 07:15] LABS: CALCIUM, SERUM 8.8 mg/dL (8.5-10.1); CREATININE 4.8 mg/dL (0.6-1.3)
[2019-11-22 08:00] VITALS: BP 120/56
[2019-11-22] MEDS: clonazePAM 0.5 MG TABLET PO SCH ×2 (08:33→18:16)
[2019-11-22] MEDS: SEVELAMER CARBONATE 800 MG TABLET PO SCH ×2 (08:33→18:16)
[2019-11-22] MEDS: QUETIAPINE FUMARATE 25 MG TABLET PO SCH ×2 (08:33→20:55)
[2019-11-22] MEDS: BENZTROPINE MESYLATE (1 MG) 1 MG TABLET PO SCH ×2 (08:33→18:16)
[2019-11-22] MEDS: CARVEDILOL 12.5 MG TABLET PO SCH ×2 (08:36→20:55)
[2019-11-22] MEDS: CLONIDINE HCL 0.1 MG TABLET PO SCH ×2 (08:37→18:16)
--- NOTE | 2019-11-22 09:34 | NUR ---
WOUND CARE CONSULT: PT PRESENTS WITH SOME SCRATCH ORDONEZ ON BUTTOCKS, PRESENT ON ADMISSION. PT IS CONTINENT WITH CONRAD CATH AND IS INDEPENDENT WITH BED MOBILITY. WILL SEE PRN. CURRENT MONA SCORE IS 20.
[2019-11-22] MEDS: *INSULIN REGULAR(HUMULIN R)HUM 100 UNIT/ML VIAL SQ PRN ×2 (12:12→23:41)
[2019-11-22] MEDS: CEFTRIAXONE 1 G in IV D5W 50 ML IV SCH (12:20)
[2019-11-22 16:00] VITALS: BP 132/63
[2019-11-22] MEDS: POLYETHYLENE GLYCOL 3350 17 GM POWD.PACK PO SCH ×2 (18:15→20:57)
[2019-11-22 20:00] VITALS: BP 153/75
--- NOTE | 2019-11-22 20:38 | NUR ---
MS/TELE/RN DURING INITIAL SHIFT ROUNDING, PATIENT WAS IN BED AWAKE, ALERT, ORIENTED, COMFORTABLE, NO DISTRESS NOTED, CALL LIGHT IN REACH. FALL PRECAUTIONS PER PROTOCOL. WILL MONITOR.
[2019-11-22] MEDS: ATORVASTATIN 40 MG TABLET PO SCH (20:55)
[2019-11-22] MEDS: DIVALPROEX SODIUM 250 MG TABLET.DR PO SCH (20:56)
[2019-11-22] MEDS: HYDROCODONE/APAP 5/325MG TABLET PO PRN (21:04)
[2019-11-23 00:05] VITALS: BP 131/67
[2019-11-23 04:00] VITALS: BP 134/63
--- NOTE | 2019-11-23 05:56 | NUR ---
MS/TELE/RN] C/O NO BM, MOM WAS GIVEN ORDERED.
--- NOTE | 2019-11-23 06:50 | NUR ---
MS/TELE/RN PATIENT IS SLEEPING, APPEAR COMFORTABLE, NO DISTRESS NOTED, CALL LIGHT IN REACH, GOOD SLEEP NOTED THE WHOLE SHIFT, CALL LIGHT WITHIN REACH, WILL CONTINUE TO MONITOR.
[2019-11-23] MEDS: BLOOD SUGAR DIAGNOSTIC 1 EACH STRIP VI SCH ×3 (07:29→16:46)
--- NOTE | 2019-11-23 07:35 | NUR ---
Bedside HD started. Patient in stable condition at this time. Will continue to monitor
[2019-11-23 08:00] VITALS: BP 200/103
--- NOTE | 2019-11-23 09:30 | NUR ---
HD finished with output 2000 ml. Patient awake. alert and oriented x3 . BP at high site. AM meds administrated. Will continue to monitor
[2019-11-23] MEDS: SEVELAMER CARBONATE 800 MG TABLET PO SCH ×2 (09:31→16:44)
[2019-11-23] MEDS: CLONIDINE HCL 0.1 MG TABLET PO SCH ×2 (09:31→16:45)
[2019-11-23] MEDS: QUETIAPINE FUMARATE 25 MG TABLET PO SCH (09:32)
[2019-11-23] MEDS: clonazePAM 0.5 MG TABLET PO SCH ×2 (09:32→16:44)
[2019-11-23] MEDS: BENZTROPINE MESYLATE (1 MG) 1 MG TABLET PO SCH ×2 (09:32→16:45)
[2019-11-23] MEDS: CARVEDILOL 12.5 MG TABLET PO SCH (09:32)
[2019-11-23 09:50] VITALS: BP 180/91
[2019-11-23] MEDS ORDERED: CLONIDINE HCL 0.1 MG TABLET PO PRN (11:00)
[2019-11-23] MEDS ORDERED: CEPH-570 PO (11:00)
--- NOTE | 2019-11-23 11:50 | NUR ---
Patient's BS is 412. Protocol initiated. 15 units of Insulin administrated and MD informed.
[2019-11-23] MEDS: INSULIN REGULAR, HUMAN 100 UNIT/ML 3 ML VIAL SQ PRN ×2 (11:56→16:46)
[2019-11-23] MEDS: CEFTRIAXONE 1 G in IV D5W 50 ML IV SCH (12:01)
[2019-11-23 16:45] VITALS: BP 119/55
--- NOTE | 2019-11-23 18:15 | NUR ---
Patient cleared for d/c back to assisted leaving by . Ptient awake alert and oriented x4. Breathing unlabored and even on room air, saturation above 95%. BP is WNR. Patient ate dinner before d/c. Patient is ambulatory with assistance. HD acces intact and patent. Patient has no skin issues, except discoloration on l/r buttock. Patient refused to take d/c picture.IV line removed and ID wrist band removed. Patient received d/c instructions and educated to finish Keflex 500 mg TID for 7 days. Patient verbalized understanding. All needs attended prior d/c. Patient sighed all instructions and valuable form and all belongings with the patient including earrings, watch, and rings. Patient safely picked up by ambulance.
== END 2019-11-23 18:20 | DRG 689 ==
LOC: ER 11:20 → UNDOADMIN 14:42 → TELE 14:42
PROVIDERS: ADMIT Internal Medicine; ATTEND Internal Medicine
PROC: 5A1D70Z Performance of Urinary Filtration, Intermittent, Less than 6 Hours Per Day (ICD-10-PCS; principal; 2019-11-21)
DX: N39.0 Urinary tract infection, site not specified (principal); G93.41 Metabolic encephalopathy; N18.6 End stage renal disease; I12.0 Hypertensive chronic kidney disease with stage 5 chronic kidney disease or end stage renal disease; D68.69 Other thrombophilia; F32.9 Major depressive disorder, single episode, unspecified; E11.9 Type 2 diabetes mellitus without complications; Z99.2 Dependence on renal dialysis; E11.22 Type 2 diabetes mellitus with diabetic chronic kidney disease; E78.5 Hyperlipidemia, unspecified; E66.9 Obesity, unspecified; Z68.29 Body mass index [BMI] 29.0-29.9, adult; Z79.4 Long term (current) use of insulin; Z90.49 Acquired absence of other specified parts of digestive tract; M19.90 Unspecified osteoarthritis, unspecified site; B96.20 Unspecified Escherichia coli [E. coli] as the cause of diseases classified elsewhere; F20.9 Schizophrenia, unspecified; D63.1 Anemia in chronic kidney disease
CPT/HCPCS: 36415; 71045-TC; 80048-TC; 80061-TC; 80076-TC; 81000-TC; 82962-TC; 83690-TC; 83735-TC; 84100-TC; 84484-TC; 85025-TC; 86706; 87081-TC; 87086-TC; 87186-TC; 87340; 90935-TC; C9803-CS; G0378; J0696; J1815; J2270; J2405; J7030; J7050; J7060

== ENCOUNTER 2020-02-04 17:26 | Emergency (ER) | payer MEDICARE, OTHER ==
[~2020-02-04] VITALS: Ht 152.4 cm; Wt 65.8 kg
[~2020-02-04 17:26] MED LIST changes: -AMLO10TA7 PO; -BUSP5TAB3 PO; +CARV12.52 PO; +CEPH-570 PO; -CHOL10002 PO; +CLON0.1T PO; -CLON0.2T PO; +CLON0.5T4 PO; +DIVA250T PO; -DOXA1TAB17 PO; -EPOE4000 IJ; -FERR325T23 PO; -FLUT9.9S NS; -GABA-532 PO; +GLYB5TAB7 PO; +HYDR-4384 PO; -INSU100V3 IJ; -INSU100V7 SQ; -LORA-259 PO; +LURA40TA PO; -MULT-447 PO; -OMEG-167 PO; -OXCA300T15 PO; +QUET25TA PO; -RISP0.5T5 PO; +SEVE800T8 PO
--- NOTE | 2020-02-04 18:14 | NUR ---
PT KIMBERLY FROM [facility] FOR SORE THROAT & FATIGUE. COVID +. PT PLACED IN BED 7 ON MONITOR AND PULSE OX. VSS. PT SAT 98% ON ROOM AIR. MD AT BEDSIDE FOR EVAL. AWAITING ORDERS.
[2020-02-04] MEDS ORDERED: TRAM50TA2 PO (18:30)
[2020-02-04] MEDS ORDERED: LACT10SO68 PO (18:30)
[2020-02-04] MEDS ORDERED: ASCO500C17 PO (18:30)
[2020-02-04] MEDS ORDERED: GLIM4TAB37 PO (18:30)
[2020-02-04] MEDS ORDERED: INSU100I35 SQ (18:30)
[2020-02-04] MEDS ORDERED: MULT-439 PO (18:30)
[2020-02-04] MEDS ORDERED: ZINC220C6 PO (18:30)
[2020-02-04] MEDS ORDERED: [UNRECOGNIZED DRUG - CODE] PO (18:30)
[2020-02-04] MEDS ORDERED: GLIM2TAB31 PO (18:30)
[2020-02-04] MEDS ORDERED: LINA5TAB PO (18:30)
[2020-02-04] MEDS ORDERED: CLON0.1T PO (18:30)
[2020-02-04] MEDS ORDERED: INSU100I26 SQ (18:30)
[2020-02-04] MEDS ORDERED: ONDA4TAB5 PO (18:30)
[2020-02-04] MEDS ORDERED: FELO5TAB45 PO (18:30)
--- NOTE | 2020-02-04 18:34 | NUR ---
AWAITING FOR RADIOLOGY
--- NOTE | 2020-02-04 18:35 | NUR ---
NOLVIAID SWABBED, SENT TO LAB.
--- NOTE | 2020-02-04 18:38 | NUR ---
XRAY AT BEDSIDE
--- NOTE | 2020-02-04 18:50 | NUR ---
PT RESTING COMFORTABLY. VSS.
[2020-02-04] MEDS ORDERED: DEXAMETHASONE 1 MG TABLET PO ONE (19:30)
[2020-02-04] MEDS ORDERED: ACETAMINOPHEN ES 500 MG TABLET PO ONE (19:30)
[2020-02-04] MEDS ORDERED: ACETAMINOPHEN ES 500 MG TABLET ONE (20:08)
[2020-02-04] MEDS ORDERED: DEXAMETHASONE SOD PHOSPHATE 10 MG/ML VIAL ONE (20:08)
[2020-02-04] MEDS ORDERED: DEXAMETHASONE SOD PHOSPHATE 10 MG/ML VIAL IM ONE (20:30)
--- NOTE | 2020-02-04 23:20 | NUR ---
PT AMBULATORY TO RESTROOM WITH ASSISTANCE
--- NOTE | 2020-02-04 23:42 | NUR ---
PT RESTING COMFORTABLY.
[2020-02-05] MEDS ORDERED: QUETIAPINE FUMARATE 100 MG TABLET PO SCH (01:00)
[2020-02-05] MEDS ORDERED: QUETIAPINE FUMARATE 25 MG TABLET ONE (01:07)
--- NOTE | 2020-02-05 02:51 | NUR ---
PT RESTIN COMFORTABLY. VSS.
--- NOTE | 2020-02-05 04:11 | NUR ---
PT AWAKE IN BED, VSS.
[2020-02-05] MEDS ORDERED: HYDROCODONE/APAP 5/325MG TABLET ONE (06:10)
[2020-02-05] MEDS ORDERED: HYDROCODONE/APAP 5/325MG TABLET PO ONE (06:30)
--- NOTE | 2020-02-05 06:47 | NUR ---
PT ASKING FOR BLANKETS. BLANKETS GIVEN. VSS.
--- NOTE | 2020-02-05 10:35 | NUR ---
CM CALLED FOR ACCEPTANCE INFO. PT WILL BE GOING TO [facility] IN [place]. LUCINDA IS THE ACCEPTING NURSE. PT GOING TO ROOM
--- NOTE | 2020-02-05 11:12 | NUR ---
CALLED [facility] FOR TRANSPORT TO [facility]. ETA [id number].
--- NOTE | 2020-02-05 12:18 | NUR ---
report given to Edna SHEIKH for cecilia
--- NOTE | 2020-02-05 12:54 | NUR ---
report given to javascript ui developer picking up pt for transport
[2020-02-05 12:56] VITALS: BP 139/74
== END 2020-02-05 12:56 ==
LOC: ER 17:34
DX: U07.1 COVID-19 (principal); M79.10 Myalgia, unspecified site; E11.9 Type 2 diabetes mellitus without complications; I11.0 Hypertensive heart disease with heart failure; I50.9 Heart failure, unspecified; Z79.899 Other long term (current) drug therapy; Z79.84 Long term (current) use of oral hypoglycemic drugs; N25.0 Renal osteodystrophy; F25.9 Schizoaffective disorder, unspecified; G20 Parkinson's disease; M19.90 Unspecified osteoarthritis, unspecified site
CPT/HCPCS: 71045; 87426; 96372; 99285; J1100; C9803

== ENCOUNTER 2022-10-01 17:00 | Inpatient (IN) | payer MEDICARE, OTHER ==
[~2022-10-01] VITALS: Ht 160 cm; Wt 68.0 kg
[~2022-10-01 17:00] MED LIST changes: +ASCO500C17 PO; -CEPH-570 PO; +FELO5TAB45 PO; +GLIM2TAB31 PO; +GLIM4TAB37 PO; -GLYB5TAB7 PO; +INSU100I26 SQ; +INSU100I35 SQ; +LACT10SO68 PO; +LINA5TAB PO; +MULT-439 PO; +ONDA4TAB5 PO; +TRAM50TA2 PO; +ZINC220C6 PO; +[UNRECOGNIZED DRUG - CODE] PO
[2022-10-01 18:05] LABS: CALCIUM, SERUM 9.4 mg/dL (8.5-10.1); CARBON DIOXIDE 29 mmol/L (21-32); CHLORIDE 95 mmol/L (98-107); CREATININE 4.5 mg/dL (0.6-1.3); GLUCOSE 108 mg/dL (74-106); POTASSIUM 3.7 mmol/L (3.5-5.1); SODIUM SERUM 136 mmol/L (136-145); UREA NITROGEN, BLOOD 24 mg/dL (7-18)
[2022-10-01 18:10] LABS: ALANINE AMINOTRANSFERASE 16 U/L (12-78); ALBUMIN 3.7 g/dL (3.4-5.0); ALKALINE PHOSPHATASE 174 U/L (46-116); ASPARTATE AMINOTRANSFERASE 31 U/L (15-37); BILIRUBIN,DIRECT 0.3 mg/dL (0.0-0.2); BILIRUBIN,TOTAL 0.7 mg/dL (0.2-1.0); TOTAL PROTEIN, SERUM 8.8 g/dL (6.4-8.2)
[2022-10-01 18:15] LABS: RED CELL DISTRIBUTION WIDTH 19.7 % (11.5-15.0)
[2022-10-01 18:17] LABS: THYROID STIMULATING HORMONE 3.527 uIU/mL (0.358-3.74)
[2022-10-01 18:48] LABS: EOSINOPHILS # (AUTO) 0.1 K/uL (0.0-0.7); EOSINOPHILS % (AUTO) 2.8 % (0.0-6.0); HEMATOCRIT 28 % (33-45); LYMPHOCYTES # (AUTO) 1.1 K/uL (0.8-4.8); LYMPHOCYTES % (AUTO) 29.4 % (20.0-44.0); MEAN CORPUSCULAR HEMOGLOBIN 30 PG (26.0-33.0); MEAN CORPUSCULAR HGB CONC 33 g/dl (31.0-36.0); MEAN CORPUSCULAR VOLUME 91 fL (82-100); MONOCYTES # (AUTO) 0.7 K/uL (0.1-1.30); MONOCYTES % (AUTO) 20.4 % (2.0-12.0); NEUTROPHILS # (AUTO) 1.7 K/uL (1.8-8.9); NEUTROPHILS % (AUTO) 46.4 % (43.0-81.0); PLATELET COUNT (AUTO) 133 K/uL (150-450); RED BLOOD CELL COUNT(AUTO) 3.02 MIL/uL (4.0-5.2); WHITE BLOOD COUNT (AUTO) 3.7 K/uL (4.3-11.0)
[2022-10-01 19:14] LABS: EOSINOPHILS % (MANUAL) 1 % (0-4); LYMPHOCYTES % (MANUAL) 29 % (16-48); MONOCYTES % (MANUAL) 19 % (0-11.0); NEUTROPHILS % (MANUAL) 51 (42-76); PLATELET ESTIMATE DECREASED
[2022-10-01] MEDS ORDERED: CLONIDINE HCL 0.1 MG TABLET ONE (20:16)
[2022-10-01] MEDS ORDERED: CLONIDINE HCL 0.1 MG TABLET PO ONE (20:30)
[2022-10-01] MEDS ORDERED: MAG HYDROX/AL HYDROX/SIMETH 30 ML UDC PO PRN (22:00)
[2022-10-01] MEDS ORDERED: ACETAMINOPHEN 325 MG TABLET PO PRN (22:00)
[2022-10-01] MEDS ORDERED: HYDROCODONE/APAP 5/325MG TABLET PO PRN (22:00)
[2022-10-01] MEDS ORDERED: DEXTROSE 50%-WATER 50 ML DISP.SYRIN IV PRN (22:00)
[2022-10-01] MEDS ORDERED: ZOLPIDEM TARTRATE 5 MG TABLET PO PRN (22:00)
[2022-10-01] MEDS ORDERED: ONDANSETRON HCL/PF 4 MG/2 ML VIAL IVP PRN (22:00)
[2022-10-01] MEDS ORDERED: MAGNESIUM HYDROXIDE 30 ML UDC PO PRN (22:00)
[2022-10-01] MEDS ORDERED: Z GUARD REMEDY 4 OZ OINT TP PRN (22:00)
[2022-10-01] MEDS: BLOOD SUGAR DIAGNOSTIC 1 EACH STRIP IN SCH (23:21)
[2022-10-01] MEDS ORDERED: LACTULOSE 10 G/15 ML UDC (PYXIS) PO PRN ×2 (23:30)
[2022-10-02 05:52] LABS: BASOPHILS % (AUTO) 1.3 % (0.0-2.0); EOSINOPHILS # (AUTO) 0.1 K/uL (0.0-0.7); EOSINOPHILS % (AUTO) 2.1 % (0.0-6.0); HEMATOCRIT 26 % (33-45); HEMOGLOBIN 8.6 g/dL (11.5-14.8); LYMPHOCYTES # (AUTO) 0.9 K/uL (0.8-4.8); LYMPHOCYTES % (AUTO) 33.5 % (20.0-44.0); MEAN CORPUSCULAR HEMOGLOBIN 30 PG (26.0-33.0); MEAN CORPUSCULAR HGB CONC 33 g/dl (31.0-36.0); MEAN CORPUSCULAR VOLUME 92 fL (82-100); MONOCYTES # (AUTO) 0.3 K/uL (0.1-1.30); MONOCYTES % (AUTO) 11.9 % (2.0-12.0); NEUTROPHILS # (AUTO) 1.4 K/uL (1.8-8.9); NEUTROPHILS % (AUTO) 51.2 % (43.0-81.0); PLATELET COUNT (AUTO) 130 K/uL (150-450); RED BLOOD CELL COUNT(AUTO) 2.87 MIL/uL (4.0-5.2); RED CELL DISTRIBUTION WIDTH 19.2 % (11.5-15.0); WHITE BLOOD COUNT (AUTO) 2.8 K/uL (4.3-11.0)
[2022-10-02 06:24] LABS: CALCIUM, SERUM 9.1 mg/dL (8.5-10.1); CARBON DIOXIDE 30 mmol/L (21-32); CHLORIDE 98 mmol/L (98-107); CREATININE 5.8 mg/dL (0.6-1.3); GLUCOSE 87 mg/dL (74-106); MAGNESIUM 1.9 mg/dL (1.8-2.4); PHOSPHORUS 4.8 mg/dL (2.5-4.9); POTASSIUM 4.1 mmol/L (3.5-5.1); SODIUM SERUM 138 mmol/L (136-145); UREA NITROGEN, BLOOD 31 mg/dL (7-18)
[2022-10-02] MEDS: BLOOD SUGAR DIAGNOSTIC 1 EACH STRIP IN SCH ×4 (06:36→22:00)
[2022-10-02] MEDS ORDERED: LOPE2CAP PO (07:54)
[2022-10-02] MEDS ORDERED: DIPH25CA51 PO (07:54)
[2022-10-02] MEDS ORDERED: TRAV5DRO11 EACHEYE (07:54)
[2022-10-02] MEDS ORDERED: MIRT-91 PO (07:54)
[2022-10-02] MEDS ORDERED: PANT40TA2 PO (07:54)
[2022-10-02] MEDS ORDERED: TRIA15OI2 TP (07:54)
[2022-10-02] MEDS ORDERED: OLOP2.5D12 EACHEYE (07:54)
[2022-10-02] MEDS ORDERED: BISA5TAB10 PO (07:54)
[2022-10-02] MEDS ORDERED: ACET-868 PO (07:54)
[2022-10-02] MEDS ORDERED: DOCU-141 PO (07:54)
[2022-10-02] MEDS ORDERED: NATE60TA4 PO (07:54)
[2022-10-02] MEDS ORDERED: GUAI100S11 PO (07:54)
[2022-10-02] MEDS: HEPARIN SODIUM, PORCINE 5000 UNITS/1 ML VIAL SQ SCH ×2 (08:26→17:50)
[2022-10-02] MEDS: LINAGLIPTIN 5 MG TABLET PO SCH (08:27)
[2022-10-02] MEDS: CHOLECALCIFEROL 1,000 UNIT TABLET (VIT D3) PO SCH (08:27)
[2022-10-02] MEDS: QUETIAPINE FUMARATE 25 MG TABLET PO SCH ×2 (08:27→20:58)
[2022-10-02] MEDS: ASCORBIC ACID 500 MG TABLET PO SCH ×2 (08:28→17:00)
[2022-10-02] MEDS: MULTIVIT W/MINERALS 1 TAB TABLET PO SCH (08:28)
[2022-10-02] MEDS: DIVALPROEX SODIUM 250 MG TABLET.DR PO SCH ×2 (08:28→17:00)
[2022-10-02] MEDS: SEVELAMER CARBONATE 800 MG TABLET PO SCH ×2 (08:28→17:00)
[2022-10-02] MEDS: clonazePAM 0.5 MG TABLET PO SCH ×2 (08:28→17:00)
[2022-10-02] MEDS: CARVEDILOL 12.5 MG TABLET PO SCH ×2 (08:29→20:58)
[2022-10-02 08:30] VITALS: BP 156/78; TEMP 99.6; O2SAT 94
[2022-10-02] MEDS: INSULIN NPH/REG 70/30 MIX INJ 100 UNIT/ML VIAL SQ SCH (09:00)
[2022-10-02] MEDS ORDERED: FELODIPINE 2.5 MG TAB.SR.24H PO SCH (09:00)
[2022-10-02] MEDS: CLONIDINE HCL 0.1 MG TABLET PO SCH ×2 (09:00→17:00)
[2022-10-02] MEDS: BENZTROPINE MESYLATE (1 MG) 1 MG TABLET PO SCH ×2 (09:31→17:00)
[2022-10-02] MEDS ORDERED: CLONIDINE HCL 0.1 MG TABLET PO PRN (10:30)
[2022-10-02] MEDS ORDERED: TRIAMCINOLONE OINT 0.1% 15 GM TUBE TP PRN (10:30)
[2022-10-02] MEDS ORDERED: GUAIFENESIN 300 MG/15 ML UDC PO PRN (10:30)
[2022-10-02] MEDS ORDERED: LOPERAMIDE HCL (2 MG CAP) 2 MG CAPSULE PO PRN (10:30)
[2022-10-02 11:12] LABS: APPEARANCE,URINE CLEAR (CLEAR); BILIRUBIN,URINE NEGATIVE (NEGATIVE); BLOOD, URINE NEGATIVE Ery/uL (NEGATIVE); COLOR,URINE YELLOW (YELLOW); KETONES,URINE NEGATIVE (NEGATIVE); LEUKOCYTE ESTERASE ,URINE NEGATIVE (NEGATIVE); NITRITE, URINE NEGATIVE (NEGATIVE); PROTEIN,URINE 2+ mg/dl (NEGATIVE); UGLUCOSE NEGATIVE (NEGATIVE); UROBILINOGEN,URINE 0.2 EU/dL (0.2)
[2022-10-02 11:27] LABS: ADD URINE CULTURE NO; BACTERIA,URINE None seen /HPF (None Seen); RBC,URINE 0-2 /HPF (0-2); SQUAMOUS EPITHELIAL CELL,UR Few /HPF (None Seen); WBC,URINE 0-2 /HPF (0-3)
[2022-10-02] MEDS: EPOETIN ALFA (4000 UNIT) 4,000 UNIT/ML VIAL IV SCH (15:02)
[2022-10-02 15:45] VITALS: BP 166/76; TEMP 98.5; O2SAT 96
[2022-10-02] MEDS: DOCUSATE SODIUM 100 MG CAPSULE PO SCH (17:00)
[2022-10-02] MEDS: PANTOPRAZOLE 40 MG TABLET.DR PO SCH (17:46)
[2022-10-02] MEDS: NATEGLINIDE 60 MG TABLET PO SCH (17:46)
[2022-10-02 20:00] VITALS: BP_SYST 118; BP_SYST 172; BP_DIAS 78; BP_DIAS 80; TEMP 97.3; O2SAT 96
[2022-10-02] MEDS ORDERED: MIRTAZAPINE 15 MG TABLET PO SCH (22:00)
[2022-10-02] MEDS: BISACODYL (5 MG) 5 MG TABLET.DR PO SCH (22:56)
[2022-10-02] MEDS: ATORVASTATIN 40 MG TABLET PO SCH (22:56)
[2022-10-02] MEDS: INSULIN REGULAR, HUMAN 100 UNIT/ML 3 ML VIAL SQ PRN (23:51)
[2022-10-03 06:01] LABS: BASOPHILS # (AUTO) 0.1 K/uL (0.0-0.2); BASOPHILS % (AUTO) 2.2 % (0.0-2.0); EOSINOPHILS # (AUTO) 0.1 K/uL (0.0-0.7); EOSINOPHILS % (AUTO) 1.7 % (0.0-6.0); HEMATOCRIT 28 % (33-45); HEMOGLOBIN 9.1 g/dL (11.5-14.8); LYMPHOCYTES % (AUTO) 29.2 % (20.0-44.0); MEAN CORPUSCULAR HEMOGLOBIN 30 PG (26.0-33.0); MEAN CORPUSCULAR HGB CONC 33 g/dl (31.0-36.0); MEAN CORPUSCULAR VOLUME 92 fL (82-100); MONOCYTES # (AUTO) 0.4 K/uL (0.1-1.30); MONOCYTES % (AUTO) 12.2 % (2.0-12.0); NEUTROPHILS # (AUTO) 1.8 K/uL (1.8-8.9); NEUTROPHILS % (AUTO) 54.7 % (43.0-81.0); PLATELET COUNT (AUTO) 132 K/uL (150-450); RED BLOOD CELL COUNT(AUTO) 3.03 MIL/uL (4.0-5.2); RED CELL DISTRIBUTION WIDTH 19.1 % (11.5-15.0); WHITE BLOOD COUNT (AUTO) 3.3 K/uL (4.3-11.0)
[2022-10-03 06:13] LABS: CALCIUM, SERUM 9.1 mg/dL (8.5-10.1); CARBON DIOXIDE 28 mmol/L (21-32); CHLORIDE 98 mmol/L (98-107); GLUCOSE 121 mg/dL (74-106); SODIUM SERUM 138 mmol/L (136-145); UREA NITROGEN, BLOOD 41 mg/dL (7-18)
[2022-10-03 06:23] LABS: TOTAL IRON BINDING CAPACITY 124 ug/dl (250-450)
[2022-10-03 06:41] LABS: FERRITIN 783 ng/mL (8-388)
[2022-10-03 06:44] LABS: IRON, SERUM 32 ug/dl (50-175)
[2022-10-03 06:46] LABS: CREATININE 7.6 mg/dL (0.6-1.3)
[2022-10-03] MEDS: BLOOD SUGAR DIAGNOSTIC 1 EACH STRIP IN SCH ×4 (06:53→22:00)
[2022-10-03] MEDS: SEVELAMER CARBONATE 800 MG TABLET PO SCH ×2 (08:15→17:41)
[2022-10-03] MEDS: MULTIVIT W/MINERALS 1 TAB TABLET PO SCH (08:15)
[2022-10-03] MEDS: LINAGLIPTIN 5 MG TABLET PO SCH (08:15)
[2022-10-03] MEDS: DOCUSATE SODIUM 100 MG CAPSULE PO SCH ×2 (08:15→16:22)
[2022-10-03] MEDS: ASCORBIC ACID 500 MG TABLET PO SCH ×2 (08:15→17:42)
[2022-10-03] MEDS: CHOLECALCIFEROL 1,000 UNIT TABLET (VIT D3) PO SCH (08:15)
[2022-10-03] MEDS: NATEGLINIDE 60 MG TABLET PO SCH ×2 (08:15→16:47)
[2022-10-03] MEDS: AMLODIPINE BESYLATE 5 MG TABLET PO SCH (08:16)
[2022-10-03] MEDS: PANTOPRAZOLE 40 MG TABLET.DR PO SCH ×2 (08:16→16:47)
[2022-10-03] MEDS: QUETIAPINE FUMARATE 25 MG TABLET PO SCH ×2 (08:16→21:48)
[2022-10-03 08:17] VITALS: BP 165/75; TEMP 98.3; O2SAT 97
[2022-10-03] MEDS: CLONIDINE HCL 0.1 MG TABLET PO SCH ×2 (08:17→17:00)
[2022-10-03] MEDS: CARVEDILOL 12.5 MG TABLET PO SCH ×2 (08:17→21:48)
[2022-10-03] MEDS: BENZTROPINE MESYLATE (1 MG) 1 MG TABLET PO SCH ×2 (08:17→17:42)
[2022-10-03] MEDS: DIVALPROEX SODIUM 250 MG TABLET.DR PO SCH ×3 (08:20→17:42)
[2022-10-03] MEDS: clonazePAM 0.5 MG TABLET PO SCH ×2 (08:20→17:42)
[2022-10-03] MEDS: INSULIN NPH/REG 70/30 MIX INJ 100 UNIT/ML VIAL SQ SCH (09:00)
[2022-10-03] MEDS: OLOPATADINE HCL 0.1% OPHTH BOTTLE EACHEYE SCH (09:51)
[2022-10-03] MEDS: HEPARIN SODIUM, PORCINE 5000 UNITS/1 ML VIAL SQ SCH ×2 (09:52→17:44)
[2022-10-03 11:39] VITALS: BP 130/56; TEMP 97.7; O2SAT 98
[2022-10-03 16:16] VITALS: BP 124/54; TEMP 98.1; O2SAT 97
[2022-10-03] MEDS: TRIAMCINOLONE ACETONIDE 0.1% CR 15 GM TUBE TP PRN ×2 (17:43→17:45)
[2022-10-03] MEDS: CLOTRIMAZOLE 1% 15 GM TUBE TP SCH (18:01)
[2022-10-03 19:00] VITALS: BP 146/66; TEMP 97.9; O2SAT 94
[2022-10-03 20:00] VITALS: BP 146/66; TEMP 97.9; O2SAT 99
[2022-10-03 20:54] LABS: OCCULT BLOOD STOOL NEGATIVE (NEGATIVE)
[2022-10-03] MEDS: ATORVASTATIN 40 MG TABLET PO SCH (21:48)
[2022-10-03] MEDS: BISACODYL (5 MG) 5 MG TABLET.DR PO SCH (22:00)
[2022-10-03] MEDS ORDERED: LATANOPROST EYE DROP 0.005% 2.5 ML BOTTLE EACHEYE SCH (22:00)
[2022-10-03] MEDS: INSULIN REGULAR, HUMAN 100 UNIT/ML 3 ML VIAL SQ PRN (22:01)
[2022-10-04] MEDS: BLOOD SUGAR DIAGNOSTIC 1 EACH STRIP IN SCH ×3 (06:37→17:10)
[2022-10-04 08:00] VITALS: BP_SYST 107; BP_SYST 146; BP_DIAS 47; BP_DIAS 61; TEMP 98.1; TEMP 99.1; O2SAT 100; O2SAT 96
[2022-10-04] MEDS: clonazePAM 0.5 MG TABLET PO SCH ×2 (08:32→17:00)
[2022-10-04] MEDS: NATEGLINIDE 60 MG TABLET PO SCH ×2 (08:32→16:30)
[2022-10-04] MEDS: PANTOPRAZOLE 40 MG TABLET.DR PO SCH ×2 (08:32→16:30)
[2022-10-04] MEDS: SEVELAMER CARBONATE 800 MG TABLET PO SCH ×2 (08:32→17:00)
[2022-10-04] MEDS: CHOLECALCIFEROL 1,000 UNIT TABLET (VIT D3) PO SCH (08:32)
[2022-10-04] MEDS: QUETIAPINE FUMARATE 25 MG TABLET PO SCH (08:32)
[2022-10-04] MEDS: DOCUSATE SODIUM 100 MG CAPSULE PO SCH ×2 (08:33→17:00)
[2022-10-04] MEDS: ASCORBIC ACID 500 MG TABLET PO SCH ×2 (08:33→17:00)
[2022-10-04] MEDS: MULTIVIT W/MINERALS 1 TAB TABLET PO SCH (08:33)
[2022-10-04] MEDS: LINAGLIPTIN 5 MG TABLET PO SCH (08:33)
[2022-10-04] MEDS: DIVALPROEX SODIUM 250 MG TABLET.DR PO SCH ×3 (08:33→17:00)
[2022-10-04] MEDS: BENZTROPINE MESYLATE (1 MG) 1 MG TABLET PO SCH ×2 (08:33→17:00)
[2022-10-04] MEDS: HEPARIN SODIUM, PORCINE 5000 UNITS/1 ML VIAL SQ SCH ×2 (08:34→17:00)
[2022-10-04] MEDS: CARVEDILOL 12.5 MG TABLET PO SCH (09:00)
[2022-10-04] MEDS: AMLODIPINE BESYLATE 5 MG TABLET PO SCH (09:00)
[2022-10-04] MEDS: CLONIDINE HCL 0.1 MG TABLET PO SCH ×2 (09:00→17:17)
[2022-10-04] MEDS: INSULIN NPH/REG 70/30 MIX INJ 100 UNIT/ML VIAL SQ SCH (09:00)
[2022-10-04] MEDS: CLOTRIMAZOLE 1% 15 GM TUBE TP SCH ×2 (09:54→17:00)
[2022-10-04] MEDS: OLOPATADINE HCL 0.1% OPHTH BOTTLE EACHEYE SCH (09:55)
[2022-10-04] MEDS: INSULIN REGULAR, HUMAN 100 UNIT/ML 3 ML VIAL SQ PRN ×2 (12:59→17:10)
[2022-10-04] MEDS: EPOETIN ALFA (4000 UNIT) 4,000 UNIT/ML VIAL IV SCH ×2 (15:00→15:16)
[2022-10-04 17:17] VITALS: BP 126/60
[2022-10-07 07:07] LABS: HEPATITIS B SURFACE AB Reactive (.)
== END 2022-10-04 18:44 | DRG 682 ==
LOC: ER 17:04 → MED 22:43
PROVIDERS: ADMIT Nurse Practitioner Acute Care; ATTEND Nurse Practitioner Acute Care
PROC: 5A1D70Z Performance of Urinary Filtration, Intermittent, Less than 6 Hours Per Day (ICD-10-PCS; principal; 2022-10-02)
DX: I12.0 Hypertensive chronic kidney disease with stage 5 chronic kidney disease or end stage renal disease (principal); I50.33 Acute on chronic diastolic (congestive) heart failure; N18.6 End stage renal disease; D61.818 Other pancytopenia; D68.69 Other thrombophilia; R53.1 Weakness; G20 Parkinson's disease; D63.8 Anemia in other chronic diseases classified elsewhere; E11.22 Type 2 diabetes mellitus with diabetic chronic kidney disease; Z99.2 Dependence on renal dialysis; E78.5 Hyperlipidemia, unspecified; G25.0 Essential tremor; H40.9 Unspecified glaucoma; I25.10 Atherosclerotic heart disease of native coronary artery without angina pectoris; Z87.440 Personal history of urinary (tract) infections; F31.9 Bipolar disorder, unspecified; R41.9 Unspecified symptoms and signs involving cognitive functions and awareness; Z91.199 Patient's noncompliance with other medical treatment and regimen due to unspecified reason; Z99.3 Dependence on wheelchair; Z90.49 Acquired absence of other specified parts of digestive tract; Z91.158 Patient's noncompliance with renal dialysis for other reason; M89.8X9 Other specified disorders of bone, unspecified site
CPT/HCPCS: 36415; 71045-TC; 71250-TC; 80048-TC; 80076-TC; 81001; 82272-TC; 82607-TC; 82728-TC; 82962-TC; 83540-TC; 83690-TC; 83735-TC; 84100-TC; 84443-TC; 84484-TC; 85025-TC; 86706; 87081-TC; 87340; 90935-TC; 97110-TC; 97112-TC; 97116-TC; 97530-TC; G0378; J0885; J1644; J1815; J7030

== ENCOUNTER 2023-01-14 16:30 | Inpatient (IN) | payer MEDICARE, OTHER ==
[~2023-01-14] VITALS: Ht 157.5 cm; Wt 70.3 kg
[~2023-01-14 16:30] MED LIST changes: +ACET-868 PO; -ASCO500C17 PO; -BENZ1TAB7 PO; +BISA5TAB10 PO; +DIPH25CA51 PO; +DOCU-141 PO; -GLIM2TAB31 PO; -GLIM4TAB37 PO; +GUAI100S11 PO; -INSU100I26 SQ; -INSU100I35 SQ; -LACT10SO68 PO; +LOPE2CAP PO; -LURA40TA PO; +MIRT-91 PO; -MULT-439 PO; +NATE60TA4 PO; +OLOP2.5D12 EACHEYE; -ONDA4TAB5 PO; +PANT40TA2 PO; -SEVE800T8 PO; -TRAM50TA2 PO; +TRAV5DRO11 EACHEYE; +TRIA15OI2 TP; -ZINC220C6 PO; -[UNRECOGNIZED DRUG - CODE] PO
[2023-01-14 18:00] LABS: BASOPHILS % (AUTO) 1.4 % (0.0-2.0); EOSINOPHILS # (AUTO) 0.1 K/uL (0.0-0.7); EOSINOPHILS % (AUTO) 2.9 % (0.0-6.0); LYMPHOCYTES # (AUTO) 0.7 K/uL (0.8-4.8); LYMPHOCYTES % (AUTO) 24.7 % (20.0-44.0); MEAN CORPUSCULAR HEMOGLOBIN 29 PG (26.0-33.0); MEAN CORPUSCULAR HGB CONC 33 g/dl (31.0-36.0); MEAN CORPUSCULAR VOLUME 89 fL (82-100); MONOCYTES # (AUTO) 0.2 K/uL (0.1-1.30); MONOCYTES % (AUTO) 8.6 % (2.0-12.0); NEUTROPHILS # (AUTO) 1.7 K/uL (1.8-8.9); NEUTROPHILS % (AUTO) 62.4 % (43.0-81.0); PLATELET COUNT (AUTO) 124 K/uL (150-450); RED CELL DISTRIBUTION WIDTH 21.5 % (11.5-15.0); WHITE BLOOD COUNT (AUTO) 2.7 K/uL (4.3-11.0)
[2023-01-14 18:02] LABS: RED BLOOD CELL COUNT(AUTO) 1.95 MIL/uL (4.0-5.2)
[2023-01-14 18:04] LABS: HEMOGLOBIN 5.7 g/dL (11.5-14.8)
[2023-01-14 18:05] LABS: HEMATOCRIT 17 % (33-45)
[2023-01-14] MEDS ORDERED: CALC0.5C11 PO (18:10)
[2023-01-14] MEDS ORDERED: FOLI0.8T2 PO (18:10)
[2023-01-14] MEDS ORDERED: IBUP-1955 PO (18:10)
[2023-01-14] MEDS ORDERED: INSU100V30 SQ (18:10)
[2023-01-14] MEDS ORDERED: SEVE800T8 PO (18:10)
[2023-01-14 18:14] LABS: CALCIUM, SERUM 8.3 mg/dL (8.5-10.1); CARBON DIOXIDE 31 mmol/L (21-32); CHLORIDE 91 mmol/L (98-107); GLUCOSE 116 mg/dL (74-106); POTASSIUM 3.7 mmol/L (3.5-5.1); SODIUM SERUM 131 mmol/L (136-145); UREA NITROGEN, BLOOD 57 mg/dL (7-18)
[2023-01-14 20:25] LABS: EOSINOPHILS % (MANUAL) 3 % (0-4); LYMPHOCYTES % (MANUAL) 25 % (16-48); METAMYELOCYTES % 1 % (0-0); MONOCYTES % (MANUAL) 6 % (0-11.0); NEUTROPHILS % (MANUAL) 65 (42-76)
[2023-01-14 20:26] LABS: ANISOCYTOSIS 1+; HYPOCHROMASIA 1+; PLATELET ESTIMATE DECREASED
[2023-01-14 22:00] VITALS: BP 169/69; TEMP 98.8; O2SAT 98
[2023-01-14] MEDS ORDERED: Z GUARD REMEDY 4 OZ OINT TP PRN (23:00)
[2023-01-14] MEDS ORDERED: ONDANSETRON HCL/PF 4 MG/2 ML VIAL IVP PRN (23:00)
[2023-01-14] MEDS ORDERED: ACETAMINOPHEN 325 MG TABLET PO PRN (23:00)
[2023-01-14] MEDS ORDERED: DEXTROSE 50%-WATER 50 ML DISP.SYRIN IV PRN (23:30)
[2023-01-14] MEDS ORDERED: TRIAMCINOLONE OINT 0.1% 15 GM TUBE TP PRN (23:30)
[2023-01-14] MEDS ORDERED: CLONIDINE HCL 0.1 MG TABLET PO PRN (23:30)
[2023-01-15] VITALS (13 sets, daily range): BP systolic 133–176; BP diastolic 50–69; TEMP 97.2–99.3; O2SAT 96–97
[2023-01-15 05:54] LABS: BASOPHILS % (AUTO) 1.4 % (0.0-2.0); EOSINOPHILS # (AUTO) 0.1 K/uL (0.0-0.7); EOSINOPHILS % (AUTO) 2.4 % (0.0-6.0); LYMPHOCYTES # (AUTO) 0.9 K/uL (0.8-4.8); LYMPHOCYTES % (AUTO) 25.3 % (20.0-44.0); MEAN CORPUSCULAR HEMOGLOBIN 29 PG (26.0-33.0); MEAN CORPUSCULAR HGB CONC 33 g/dl (31.0-36.0); MEAN CORPUSCULAR VOLUME 89 fL (82-100); MONOCYTES # (AUTO) 0.4 K/uL (0.1-1.30); MONOCYTES % (AUTO) 10.2 % (2.0-12.0); NEUTROPHILS # (AUTO) 2.1 K/uL (1.8-8.9); NEUTROPHILS % (AUTO) 60.7 % (43.0-81.0); PLATELET COUNT (AUTO) 122 K/uL (150-450); RED BLOOD CELL COUNT(AUTO) 2.24 MIL/uL (4.0-5.2); RED CELL DISTRIBUTION WIDTH 18.9 % (11.5-15.0); WHITE BLOOD COUNT (AUTO) 3.4 K/uL (4.3-11.0)
[2023-01-15 06:04] LABS: HEMATOCRIT 20 % (33-45); HEMOGLOBIN 6.5 g/dL (11.5-14.8)
[2023-01-15 06:16] LABS: CALCIUM, SERUM 8.1 mg/dL (8.5-10.1); CARBON DIOXIDE 28 mmol/L (21-32); CHLORIDE 95 mmol/L (98-107); CREATININE 5.8 mg/dL (0.6-1.3); GLUCOSE 97 mg/dL (74-106); MAGNESIUM 1.8 mg/dL (1.8-2.4); PHOSPHORUS 3.2 mg/dL (2.5-4.9); POTASSIUM 4.1 mmol/L (3.5-5.1); SODIUM SERUM 133 mmol/L (136-145); UREA NITROGEN, BLOOD 67 mg/dL (7-18)
[2023-01-15 06:20] LABS: IRON, SERUM 55 ug/dl (50-175); TOTAL IRON BINDING CAPACITY 205 ug/dl (250-450)
[2023-01-15] MEDS: BLOOD SUGAR DIAGNOSTIC 1 EACH STRIP IN SCH ×4 (06:49→22:11)
[2023-01-15] MEDS: INSULIN REGULAR, HUMAN 100 UNIT/ML 3 ML VIAL SQ PRN ×4 (06:49→22:28)
[2023-01-15] MEDS: OLOPATADINE HCL 0.1% OPHTH BOTTLE EACHEYE SCH (09:14)
[2023-01-15] MEDS: DOCUSATE SODIUM 100 MG CAPSULE PO SCH ×2 (09:15→16:46)
[2023-01-15] MEDS: FUROSEMIDE 40 MG TABLET PO SCH ×2 (09:15→16:46)
[2023-01-15] MEDS: clonazePAM 0.5 MG TABLET PO SCH ×3 (09:15→16:46)
[2023-01-15] MEDS: LINAGLIPTIN 5 MG TABLET PO SCH (09:15)
[2023-01-15] MEDS: SEVELAMER CARBONATE 800 MG TABLET PO SCH ×2 (09:15→17:22)
[2023-01-15] MEDS: VIT B CMPLX 3/FA/VIT C/BIOTIN 1 TAB TABLET PO SCH (09:15)
[2023-01-15] MEDS: DIVALPROEX SODIUM 500 MG TABLET.DR PO SCH ×2 (09:15→16:46)
[2023-01-15] MEDS: NATEGLINIDE 60 MG TABLET PO SCH ×2 (09:15→16:46)
[2023-01-15] MEDS: QUETIAPINE FUMARATE 25 MG TABLET PO SCH ×2 (09:16→21:09)
[2023-01-15] MEDS: PANTOPRAZOLE 40 MG TABLET.DR PO SCH (09:16)
[2023-01-15] MEDS: CALCITRIOL 0.25 MCG CAPSULE PO SCH (09:16)
[2023-01-15] MEDS: CARVEDILOL 12.5 MG TABLET PO SCH ×2 (09:17→21:09)
[2023-01-15] MEDS: AMLODIPINE BESYLATE 5 MG TABLET PO SCH (09:18)
[2023-01-15 10:31] LABS: HEMOGLOBIN 6.8 g/dL (11.5-14.8)
[2023-01-15 12:02] LABS: OCCULT BLOOD STOOL POSITIVE (NEGATIVE)
[2023-01-15 13:10] LABS: ANISOCYTOSIS 1+; BASOPHILS % (MANUAL) 0 % (0.0-2.0); EOSINOPHILS % (MANUAL) 5 % (0-4); HYPOCHROMASIA 1+; LYMPHOCYTES % (MANUAL) 21 % (16-48); MONOCYTES % (MANUAL) 12 % (0-11.0); NEUTROPHILS % (MANUAL) 62 (42-76); PLATELET ESTIMATE DECREASED
[2023-01-15 14:22] LABS: THYROID STIMULATING HORMONE 1.738 uIU/mL (0.358-3.74)
[2023-01-15 15:02] LABS: FERRITIN 812 ng/mL (8-388)
[2023-01-15 16:27] LABS: HEMOGLOBIN 6.2 g/dL (11.5-14.8)
[2023-01-15 16:52] LABS: RHEUMATOID FACTOR SCREEN NEGATIVE (NEGATIVE)
[2023-01-15 20:30] LABS: HEMOGLOBIN 8.4 g/dL (11.5-14.8)
[2023-01-15] MEDS ORDERED: MIRTAZAPINE 15 MG TABLET PO SCH (22:00)
[2023-01-15] MEDS ORDERED: ATORVASTATIN 40 MG TABLET PO SCH (22:00)
[2023-01-15] MEDS ORDERED: LATANOPROST EYE DROP 0.005% 2.5 ML BOTTLE EACHEYE SCH (22:00)
[2023-01-15] MEDS ORDERED: BISACODYL (5 MG) 5 MG TABLET.DR PO SCH (22:00)
[2023-01-16 05:46] LABS: BASOPHILS % (AUTO) 1.3 % (0.0-2.0); EOSINOPHILS # (AUTO) 0.1 K/uL (0.0-0.7); EOSINOPHILS % (AUTO) 2.2 % (0.0-6.0); HEMATOCRIT 26 % (33-45); HEMOGLOBIN 8.3 g/dL (11.5-14.8); LYMPHOCYTES # (AUTO) 0.9 K/uL (0.8-4.8); LYMPHOCYTES % (AUTO) 27.8 % (20.0-44.0); MEAN CORPUSCULAR HEMOGLOBIN 29 PG (26.0-33.0); MEAN CORPUSCULAR HGB CONC 32 g/dl (31.0-36.0); MEAN CORPUSCULAR VOLUME 91 fL (82-100); MONOCYTES # (AUTO) 0.3 K/uL (0.1-1.30); NEUTROPHILS % (AUTO) 59.7 % (43.0-81.0); PLATELET COUNT (AUTO) 142 K/uL (150-450); RED BLOOD CELL COUNT(AUTO) 2.84 MIL/uL (4.0-5.2); RED CELL DISTRIBUTION WIDTH 18.4 % (11.5-15.0); WHITE BLOOD COUNT (AUTO) 3.4 K/uL (4.3-11.0)
[2023-01-16] MEDS: INSULIN REGULAR, HUMAN 100 UNIT/ML 3 ML VIAL SQ PRN ×2 (06:43→12:49)
[2023-01-16] MEDS: BLOOD SUGAR DIAGNOSTIC 1 EACH STRIP IN SCH ×2 (06:43→12:43)
[2023-01-16] MEDS: SEVELAMER CARBONATE 800 MG TABLET PO SCH (07:30)
[2023-01-16] MEDS: NATEGLINIDE 60 MG TABLET PO SCH (07:30)
[2023-01-16] MEDS: PANTOPRAZOLE 40 MG TABLET.DR PO SCH (07:30)
[2023-01-16 08:07] LABS: IMMUNOGLOBULIN A, SERUM 333 mg/dL (64-422); IMMUNOGLOBULIN G, SERUM 1435 mg/dL (586-1602); IMMUNOGLOBULIN M, SERUM 59 mg/dL (26-217)
[2023-01-16 08:38] VITALS: BP 157/71; TEMP 98.1; O2SAT 95
[2023-01-16] MEDS: DOCUSATE SODIUM 100 MG CAPSULE PO SCH (08:43)
[2023-01-16] MEDS: OLOPATADINE HCL 0.1% OPHTH BOTTLE EACHEYE SCH (08:43)
[2023-01-16] MEDS: CALCITRIOL 0.25 MCG CAPSULE PO SCH (08:43)
[2023-01-16] MEDS: LINAGLIPTIN 5 MG TABLET PO SCH (08:44)
[2023-01-16] MEDS: DIVALPROEX SODIUM 500 MG TABLET.DR PO SCH (08:44)
[2023-01-16] MEDS: VIT B CMPLX 3/FA/VIT C/BIOTIN 1 TAB TABLET PO SCH (08:44)
[2023-01-16] MEDS: QUETIAPINE FUMARATE 25 MG TABLET PO SCH (08:44)
[2023-01-16] MEDS: AMLODIPINE BESYLATE 5 MG TABLET PO SCH (08:45)
[2023-01-16] MEDS: clonazePAM 0.5 MG TABLET PO SCH ×2 (08:45→12:43)
[2023-01-16] MEDS: FUROSEMIDE 40 MG TABLET PO SCH (08:45)
[2023-01-16 08:46] VITALS: BP 157/71
[2023-01-16] MEDS: CARVEDILOL 12.5 MG TABLET PO SCH (08:46)
[2023-01-16 10:06] LABS: *ANA ANTI-CENTROMERE B AB <0.2 AI (0.0-0.9); *ANA ANTI-DNA(DS) AB, QN 1 IU/mL (0-9); *ANA ANTI-JO-1 <0.2 AI (0.0-0.9); *ANA ANTICHROMATIN ANTIBODY <0.2 AI (0.0-0.9); *ANA RNP ANTIBODIES <0.2 AI (0.0-0.9); *ANA SJOGREN'S ANTI-SS-A <0.2 AI (0.0-0.9); *ANA SJOGREN'S ANTI-SS-B <0.2 AI (0.0-0.9); *ANAANTI-SCLERODERMA-70 AB <0.2 AI (0.0-0.9); *ANASMITH AB <0.2 AI (0.0-0.9)
[2023-01-17 06:06] LABS: HEPATITIS B SURFACE AB Reactive (.)
[2023-01-17 08:06] LABS: FREE LAMBDA LT CHAIN SERUM 231.3 mg/L (5.7-26.3); KAPPA/LAMBDA RATIO SERUM 1.28 (0.26-1.65)
[2023-01-19 09:07] LABS: *SPE A/G RATIO 0.9 (0.7-1.7); *SPE ALBUMIN 2.9 g/dL (2.9-4.4); *SPE ALPHA-1-GLOBULIN 0.2 g/dL (0.0-0.4); *SPE ALPHA-2-GLOBULIN 0.6 g/dL (0.4-1.0); *SPE BETA GLOBULIN 0.9 g/dL (0.7-1.3); *SPE GLOBULIN, TOTAL 3.2 g/dL (2.2-3.9); *SPE M-SPIKE Not Observed g/dL (Not Observed); *SPE PROTEIN TOTAL 6.1 g/dL (6.0-8.5); *SPEGAMMA GLOBULIN 1.4 g/dL (0.4-1.8)
== END 2023-01-16 15:10 | DRG 808 ==
LOC: ER 16:39 → MED 21:17
PROVIDERS: ADMIT Nurse Practitioner Family; ATTEND Internal Medicine
PROC: 5A1D70Z Performance of Urinary Filtration, Intermittent, Less than 6 Hours Per Day (ICD-10-PCS; principal; 2023-01-15)
PROC: 30233N1 Transfusion of Nonautologous Red Blood Cells into Peripheral Vein, Percutaneous Approach (ICD-10-PCS; 2023-01-15)
DX: D61.818 Other pancytopenia (principal); G93.41 Metabolic encephalopathy; N18.6 End stage renal disease; E87.1 Hypo-osmolality and hyponatremia; I13.2 Hypertensive heart and chronic kidney disease with heart failure and with stage 5 chronic kidney disease, or end stage renal disease; D63.1 Anemia in chronic kidney disease; D72.821 Monocytosis (symptomatic); E11.22 Type 2 diabetes mellitus with diabetic chronic kidney disease; E78.5 Hyperlipidemia, unspecified; F25.9 Schizoaffective disorder, unspecified; F31.9 Bipolar disorder, unspecified; G20.A1 Parkinson's disease without dyskinesia, without mention of fluctuations; G62.9 Polyneuropathy, unspecified; I25.10 Atherosclerotic heart disease of native coronary artery without angina pectoris; I50.9 Heart failure, unspecified; Z99.2 Dependence on renal dialysis; Z79.84 Long term (current) use of oral hypoglycemic drugs; Z79.4 Long term (current) use of insulin; N25.0 Renal osteodystrophy; D69.6 Thrombocytopenia, unspecified
CPT/HCPCS: 36415; 80048-TC; 82272-TC; 82607-TC; 82728-TC; 82784; 82962-TC; 83540-TC; 83735-TC; 84100-TC; 84155; 84165; 84443-TC; 85025-TC; 85027-TC; 86140-TC; 86225; 86235; 86334; 86431-TC; 86706; 86803; 86850-TC; 87081-TC; 87340; 90935-TC; G0378; J1815; P9016

== ENCOUNTER 2023-10-06 17:43 | Inpatient (IN) | payer MEDICARE, OTHER ==
[~2023-10-06] VITALS: Ht 152.4 cm; Wt 67.6 kg
[2023-10-06] MEDS: FUROSEMIDE 40 MG/4 ML VIAL ONE (09:00)
[~2023-10-06 17:43] MED LIST changes: +CALC0.5C11 PO; +FOLI0.8T2 PO; -GUAI100S11 PO; -HYDR-4384 PO; +IBUP-1955 PO; +INSU100V30 SQ; +SEVE800T8 PO
[2023-10-06] MEDS ORDERED: TRAZ-182 PO (18:55)
[2023-10-06] MEDS ORDERED: BISA10SU11 RC (18:55)
[2023-10-06] MEDS ORDERED: BENZ1TAB7 PO (18:55)
[2023-10-06] MEDS ORDERED: PRAM0.5T3 PO (18:55)
[2023-10-06] MEDS ORDERED: NIFE-34 PO (18:55)
[2023-10-06] MEDS ORDERED: LURA40TA PO (18:55)
[2023-10-06] MEDS ORDERED: MORP20SO PO (18:55)
[2023-10-06] MEDS ORDERED: GLUC1KIT IM (18:55)
[2023-10-06] MEDS ORDERED: ATRO2DRO4 SL (18:55)
[2023-10-06] MEDS ORDERED: CALC355O18 PO (18:55)
[2023-10-06] MEDS ORDERED: ACET650S11 RC (18:55)
[2023-10-06] MEDS ORDERED: HYDR-4077 PO (18:55)
[2023-10-06] MEDS ORDERED: ONDA8TAB65 PO (18:55)
[2023-10-06] MEDS ORDERED: BLOO-668 IN (18:56)
[2023-10-06 19:15] LABS: BASOPHILS % (AUTO) 0.3 % (0.0-2.0); EOSINOPHILS % (AUTO) 0.9 % (0.0-6.0); HEMATOCRIT 35 % (33-45); LYMPHOCYTES # (AUTO) 0.5 K/uL (0.8-4.8); LYMPHOCYTES % (AUTO) 14.6 % (20.0-44.0); MEAN CORPUSCULAR HEMOGLOBIN 28 PG (26.0-33.0); MEAN CORPUSCULAR HGB CONC 32 g/dl (31.0-36.0); MEAN CORPUSCULAR VOLUME 88 fL (82-100); MONOCYTES # (AUTO) 0.3 K/uL (0.1-1.30); MONOCYTES % (AUTO) 9.4 % (2.0-12.0); NEUTROPHILS # (AUTO) 2.4 K/uL (1.8-8.9); NEUTROPHILS % (AUTO) 74.8 % (43.0-81.0); PLATELET COUNT (AUTO) 83 K/uL (150-450); RED BLOOD CELL COUNT(AUTO) 3.95 MIL/uL (4.0-5.2); RED CELL DISTRIBUTION WIDTH 19.5 % (11.5-15.0); WHITE BLOOD COUNT (AUTO) 3.2 K/uL (4.3-11.0)
[2023-10-06 19:26] LABS: CALCIUM, SERUM 8.7 mg/dL (8.5-10.1); CARBON DIOXIDE 29 mmol/L (21-32); CHLORIDE 88 mmol/L (98-107); CREATININE 3.5 mg/dL (0.6-1.3); GLUCOSE 213 mg/dL (74-106); POTASSIUM 4.2 mmol/L (3.5-5.1); SODIUM SERUM 123 mmol/L (136-145); UREA NITROGEN, BLOOD 56 mg/dL (7-18)
[2023-10-06] MEDS ORDERED: VANCOMYCIN 1 GM /D5W 250 ML PB IV ONE (19:27)
[2023-10-06 19:29] LABS: SERUM AMMONIA 50 umol/L (11-32)
[2023-10-06 19:33] LABS: LACTIC ACID 1.7 mmol/L (0.4-2.0)
[2023-10-06 19:35] LABS: INR 1.3 (0.91-1.10); PARTIAL THROMBOPLASTIN TIME 29.6 SEC (24.3-34.3); PROTHROMBIN TIME 13.2 SECS (9.2-11.1)
[2023-10-06 19:53] LABS: LYMPHOCYTES % (MANUAL) 13 % (16-48); MONOCYTES % (MANUAL) 8 % (0-11.0); NEUTROPHILS % (MANUAL) 79 (42-76)
[2023-10-06] MEDS: CEFEPIME 1 GM in IV D5W 50 ML IV ONE (19:54)
[2023-10-06 19:55] LABS: ALANINE AMINOTRANSFERASE 15 U/L (12-78); ALBUMIN 2.8 g/dL (3.4-5.0); ALCOHOL, BLOOD < 3 mg/dL (0-10); ALKALINE PHOSPHATASE 151 U/L (46-116); ASPARTATE AMINOTRANSFERASE 26 U/L (15-37); BILIRUBIN,DIRECT 0.3 mg/dL (0.0-0.2); BILIRUBIN,TOTAL 0.6 mg/dL (0.2-1.0); SALICYLATE 1.6 mg/dL (2.8-20.0); TOTAL PROTEIN, SERUM 8.2 g/dL (6.4-8.2)
[2023-10-06 19:56] LABS: ANISOCYTOSIS 1+; PLATELET ESTIMATE DECREASED
[2023-10-06 20:14] LABS: APPEARANCE,URINE CLEAR (CLEAR); BILIRUBIN,URINE 1+ (NEGATIVE); BLOOD, URINE TRACE-INTA Ery/uL (NEGATIVE); COLOR,URINE DARK YELLOW (YELLOW); KETONES,URINE NEGATIVE (NEGATIVE); LEUKOCYTE ESTERASE ,URINE NEGATIVE (NEGATIVE); NITRITE, URINE NEGATIVE (NEGATIVE); PH,URINE 7.5 (5.0-8.0); PROTEIN,URINE 3+ mg/dl (NEGATIVE); UGLUCOSE NEGATIVE (NEGATIVE); UROBILINOGEN,URINE 0.2 EU/dL (0.2)
[2023-10-06] MEDS: VANCOMYCIN 1 GM in IV D5W 250 ML IV ONE (20:16)
[2023-10-06 20:27] LABS: ADD URINE CULTURE NO; BACTERIA,URINE 1+ /HPF (None Seen); SQUAMOUS EPITHELIAL CELL,UR 0-2 /HPF (None Seen)
[2023-10-06] MEDS ORDERED: MAG HYDROX/AL HYDROX/SIMETH 30 ML UDC PO PRN (20:30)
[2023-10-06] MEDS ORDERED: MAGNESIUM HYDROXIDE 30 ML UDC PO PRN (20:30)
[2023-10-06 20:56] VITALS: BP 145/49; TEMP 97.3; O2SAT 99
[2023-10-06] MEDS ORDERED: ACETAMINOPHEN 650 MG/SUPP.RECT RC PRN (21:00)
[2023-10-06] MEDS ORDERED: ATROPINE SULFATE OPHTH SOLN 15 ML BOTTLE SL PRN (21:00)
[2023-10-06] MEDS ORDERED: Medication Not On Formulary EA (Calcium Carb/Mag Hydrox/Simeth (Mylanta Tonight 800-270- PO PRN (21:00)
[2023-10-06] MEDS ORDERED: BISACODYL SUPP (10 MG) 10 MG/SUPP.RECT SUPP.RECT RC PRN (21:00)
[2023-10-06] MEDS ORDERED: hydrALAZINE HCL 50 MG TABLET PO PRN (21:00)
[2023-10-06] MEDS ORDERED: DEXTROSE 50%-WATER 50 ML DISP.SYRIN IV PRN (21:00)
[2023-10-06] MEDS: BLOOD SUGAR DIAGNOSTIC 1 EACH STRIP IN SCH (23:19)
[2023-10-06] MEDS: FUROSEMIDE 40 MG/4 ML VIAL IV ONE (23:19)
[2023-10-06] MEDS: INSULIN REGULAR, HUMAN 100 UNIT/ML 3 ML VIAL SQ PRN (23:42)
[2023-10-06] MEDS: TRAZODONE 50 MG TABLET PO SCH (23:42)
[2023-10-07] VITALS (9 sets, daily range): BP systolic 145–204; BP diastolic 59–87; TEMP 97.2–97.7; O2SAT 98–100
[2023-10-07] MEDS: hydrALAZINE HCL IV 20 MG VIAL IV PRN (01:56)
[2023-10-07 07:11] LABS: BASOPHILS % (AUTO) 0.6 % (0.0-2.0); EOSINOPHILS # (AUTO) 0.1 K/uL (0.0-0.7); HEMATOCRIT 35 % (33-45); HEMOGLOBIN 11.3 g/dL (11.5-14.8); LYMPHOCYTES % (AUTO) 18.6 % (20.0-44.0); MEAN CORPUSCULAR HEMOGLOBIN 28 PG (26.0-33.0); MEAN CORPUSCULAR HGB CONC 32 g/dl (31.0-36.0); MEAN CORPUSCULAR VOLUME 88 fL (82-100); MONOCYTES # (AUTO) 0.4 K/uL (0.1-1.30); MONOCYTES % (AUTO) 7.8 % (2.0-12.0); NEUTROPHILS # (AUTO) 3.7 K/uL (1.8-8.9); PLATELET COUNT (AUTO) 108 K/uL (150-450); RED BLOOD CELL COUNT(AUTO) 3.97 MIL/uL (4.0-5.2); RED CELL DISTRIBUTION WIDTH 19.2 % (11.5-15.0); WHITE BLOOD COUNT (AUTO) 5.2 K/uL (4.3-11.0)
[2023-10-07 07:53] LABS: CARBON DIOXIDE 33 mmol/L (21-32); CHLORIDE 86 mmol/L (98-107); CREATININE 3.9 mg/dL (0.6-1.3); GLUCOSE 119 mg/dL (74-106); MAGNESIUM 2.1 mg/dL (1.8-2.4); PHOSPHORUS 3.8 mg/dL (2.5-4.9); POTASSIUM 4.5 mmol/L (3.5-5.1); SODIUM SERUM 125 mmol/L (136-145); UREA NITROGEN, BLOOD 68 mg/dL (7-18)
[2023-10-07] MEDS: NIFEDIPINE XL 60 MG TAB.ER.24 PO SCH (09:00)
[2023-10-07] MEDS: BENZTROPINE MESYLATE (1 MG) 1 MG TABLET PO SCH (09:00)
[2023-10-07] MEDS: PRAMIPEXOLE DI-HCL 0.25 MG TABLET PO SCH (09:00)
[2023-10-07] MEDS: QUETIAPINE FUMARATE 25 MG TABLET PO SCH (09:00)
[2023-10-07] MEDS: DIVALPROEX SODIUM 500 MG TABLET.DR PO SCH (09:00)
[2023-10-07] MEDS: CARVEDILOL 12.5 MG TABLET PO SCH (09:00)
[2023-10-07] MEDS: PANTOPRAZOLE 40 MG VIAL IV SCH (09:08)
[2023-10-07] MEDS: LACTULOSE UDC 200 G in SODIUM CHLORIDE IRRIG SOLUTION 400 ML IR SCH (14:57)
[2023-10-07] MEDS: CEFEPIME 1 GM in IV D5W 50 ML IV SCH (20:21)
[2023-10-07] MEDS: ONDANSETRON HCL/PF 4 MG/2 ML VIAL IVP PRN (20:45)
[2023-10-08] VITALS (8 sets, daily range): BP systolic 101–204; BP diastolic 48–91; TEMP 97.3–98.4; O2SAT 93–99
[2023-10-08] MEDS: ACETAMINOPHEN 325 MG TABLET PO PRN (01:51)
[2023-10-08 07:12] LABS: EOSINOPHILS # (AUTO) 0.1 K/uL (0.0-0.7); EOSINOPHILS % (AUTO) 1.2 % (0.0-6.0); HEMATOCRIT 34 % (33-45); HEMOGLOBIN 10.9 g/dL (11.5-14.8); LYMPHOCYTES # (AUTO) 0.5 K/uL (0.8-4.8); LYMPHOCYTES % (AUTO) 11.6 % (20.0-44.0); MEAN CORPUSCULAR HEMOGLOBIN 28 PG (26.0-33.0); MEAN CORPUSCULAR HGB CONC 32 g/dl (31.0-36.0); MEAN CORPUSCULAR VOLUME 88 fL (82-100); MONOCYTES # (AUTO) 0.4 K/uL (0.1-1.30); MONOCYTES % (AUTO) 7.7 % (2.0-12.0); NEUTROPHILS # (AUTO) 3.7 K/uL (1.8-8.9); NEUTROPHILS % (AUTO) 78.5 % (43.0-81.0); PLATELET COUNT (AUTO) 113 K/uL (150-450); RED BLOOD CELL COUNT(AUTO) 3.92 MIL/uL (4.0-5.2); RED CELL DISTRIBUTION WIDTH 19.4 % (11.5-15.0); WHITE BLOOD COUNT (AUTO) 4.7 K/uL (4.3-11.0)
[2023-10-08 08:07] LABS: CALCIUM, SERUM 9.1 mg/dL (8.5-10.1); CARBON DIOXIDE 26 mmol/L (21-32); CHLORIDE 93 mmol/L (98-107); CREATININE 3.8 mg/dL (0.6-1.3); GLUCOSE 102 mg/dL (74-106); PHOSPHORUS 3.9 mg/dL (2.5-4.9); POTASSIUM 4.2 mmol/L (3.5-5.1); SODIUM SERUM 131 mmol/L (136-145); UREA NITROGEN, BLOOD 51 mg/dL (7-18)
[2023-10-08] MEDS: PANTOPRAZOLE 40 MG TABLET.DR PO SCH (09:01)
[2023-10-08] MEDS: CLOTRIMAZOLE 1% 15 GM TUBE TP SCH (09:04)
[2023-10-08] MEDS: Z GUARD REMEDY 4 OZ OINT TP SCH (09:04)
[2023-10-08] MEDS: VANCOMYCIN POST DIALYSIS 500MG IV PRN (12:17)
[2023-10-09 07:07] LABS: BASOPHILS % (AUTO) 1.2 % (0.0-2.0); EOSINOPHILS # (AUTO) 0.2 K/uL (0.0-0.7); EOSINOPHILS % (AUTO) 4.2 % (0.0-6.0); HEMATOCRIT 31 % (33-45); HEMOGLOBIN 10.1 g/dL (11.5-14.8); LYMPHOCYTES # (AUTO) 0.6 K/uL (0.8-4.8); LYMPHOCYTES % (AUTO) 16.7 % (20.0-44.0); MEAN CORPUSCULAR HEMOGLOBIN 28 PG (26.0-33.0); MEAN CORPUSCULAR HGB CONC 32 g/dl (31.0-36.0); MEAN CORPUSCULAR VOLUME 88 fL (82-100); MONOCYTES # (AUTO) 0.3 K/uL (0.1-1.30); MONOCYTES % (AUTO) 8.1 % (2.0-12.0); NEUTROPHILS # (AUTO) 2.7 K/uL (1.8-8.9); NEUTROPHILS % (AUTO) 69.8 % (43.0-81.0); PLATELET COUNT (AUTO) 112 K/uL (150-450); RED BLOOD CELL COUNT(AUTO) 3.57 MIL/uL (4.0-5.2); RED CELL DISTRIBUTION WIDTH 19.1 % (11.5-15.0); WHITE BLOOD COUNT (AUTO) 3.9 K/uL (4.3-11.0)
[2023-10-09 07:21] LABS: CALCIUM, SERUM 8.3 mg/dL (8.5-10.1); CARBON DIOXIDE 27 mmol/L (21-32); CHLORIDE 91 mmol/L (98-107); CREATININE 4.4 mg/dL (0.6-1.3); GLUCOSE 79 mg/dL (74-106); POTASSIUM 4.6 mmol/L (3.5-5.1); SODIUM SERUM 129 mmol/L (136-145)
[2023-10-09 07:42] LABS: UREA NITROGEN, BLOOD 56 mg/dL (7-18)
[2023-10-09] MEDS ORDERED: CEFE1FRO IV (10:07)
[2023-10-09 16:00] VITALS: BP 141/56; TEMP 97.3; O2SAT 100
[2023-10-09 20:40] VITALS: BP 158/68; TEMP 97.3; O2SAT 100
[2023-10-10 07:00] VITALS: BP 161/60; TEMP 97.6; O2SAT 94
[2023-10-10 17:00] VITALS: BP 111/48
== END 2023-10-10 18:30 | DRG 291 ==
LOC: ER 18:09 → TELE 20:19 → MED 10-08 10:24
PROVIDERS: ATTEND Internal Medicine
PROC: 0W993ZZ Drainage of Right Pleural Cavity, Percutaneous Approach (ICD-10-PCS; principal; 2023-10-07)
PROC: 5A1D70Z Performance of Urinary Filtration, Intermittent, Less than 6 Hours Per Day (ICD-10-PCS; 2023-10-07)
DX: I13.2 Hypertensive heart and chronic kidney disease with heart failure and with stage 5 chronic kidney disease, or end stage renal disease (principal); G93.41 Metabolic encephalopathy; J96.01 Acute respiratory failure with hypoxia; N18.6 End stage renal disease; I50.33 Acute on chronic diastolic (congestive) heart failure; E87.1 Hypo-osmolality and hyponatremia; N39.0 Urinary tract infection, site not specified; J90 Pleural effusion, not elsewhere classified; F01.53 Vascular dementia, unspecified severity, with mood disturbance; D68.69 Other thrombophilia; F01.54 Vascular dementia, unspecified severity, with anxiety; D64.9 Anemia, unspecified; N25.0 Renal osteodystrophy; Z99.2 Dependence on renal dialysis; E11.22 Type 2 diabetes mellitus with diabetic chronic kidney disease; E66.9 Obesity, unspecified; F29 Unspecified psychosis not due to a substance or known physiological condition; G20.A1 Parkinson's disease without dyskinesia, without mention of fluctuations; F41.9 Anxiety disorder, unspecified; F31.9 Bipolar disorder, unspecified; F25.9 Schizoaffective disorder, unspecified; Z90.49 Acquired absence of other specified parts of digestive tract; Z74.09 Other reduced mobility; M89.8X8 Other specified disorders of bone, other site; Z68.29 Body mass index [BMI] 29.0-29.9, adult; I25.10 Atherosclerotic heart disease of native coronary artery without angina pectoris; E11.42 Type 2 diabetes mellitus with diabetic polyneuropathy; Z91.81 History of falling
CPT/HCPCS: 36415; 70450-TC; 71045-TC; 71250-TC; 72125-TC; 80048-TC; 80076-TC; 80202-TC; 81001; 82140-TC; 82962-TC; 83605-TC; 83735-TC; 83880; 84100-TC; 84443-TC; 84484-TC; 85025-TC; 85730-TC; 87040-TC; 90935-TC; 92526; 92611-TC; 93307-TC; 94799-TC; A4217; A4223; G0378; G0480; J0360; J0692; J1815; J1940; J2405; J2470; J3370; J7050; J7060